=== PATIENT | female | born 1935 | race Two or more races ===

== ENCOUNTER 2016-07-08 16:30 | Emergency (ER) | payer OTHER ==
[~2016-07-08] VITALS: Ht 152.4 cm; Wt 90.7 kg
[~2016-07-08 16:30] MED LIST: ATEN50TA; ATOR20TA50; CHLO25TA22; CIPR-173; CLON0.2T; CLOP75TA41; DICY20TA66; ETOD200C27; FURO40TA; LEVO100T8; LISI40TA; METH250T21; NITR0.4S31; OMEP20TA44; OXYB10TA13; TERA5CAP42
[2016-07-08 21:11] LABS: Basophils # (auto) 0 uL; Basophils % (auto) 0.4 % (0.0-2.0); Eosinophils # (auto) 0.1 uL; Eosinophils % (auto) 1.6 % (0.0-7.0); Hematocrit 33.3 % (36.0-46.0); Hemoglobin 11.1 g/dL (12.2-16.2); Lymphocytes # (auto) 2.5 uL; Lymphocytes % (auto) 32.4 % (10.0-50.0); Mean Corpuscular Hemoglobin 30.3 pg (28.0-32.0); Mean Corpuscular Hgb Conc. 33.4 g/dL (32.0-36.0); Mean Corpuscular Volume 90.7 fL (80.0-100.0); Mean Platelet Volume 8.2 fL (7.4-10.4); Monocytes # (auto) 0.6 uL; Monocytes % (auto) 7.6 % (0.0-12.0); Neutrophils # (auto) 4.5 uL; Platelet Count (auto) 230 10^3/uL (140-450); Red Cell Distribution Width 16.7 % (11.6-16.0); White Blood Cell 7.7 10^3/uL (4.4-10.8)
[2016-07-08 21:36] LABS: Albumin 3.3 g/dL (3.4-5.0); Alkaline Phosphatase 93 U/L (45-117); Anion Gap 6 (5-15); Aspartate Aminotransferase 12 U/L (15-37); Bilirubin, Total 0.4 mg/dL (0.2-1.0); Blood Urea Nitrogen 19 mg/dL (7-18); Calcium 8.5 mg/dL (8.5-10.1); Carbon Dioxide 30 mmol/L (21-32); Chloride 103 mmol/L (98-107); GFR African American 69 mL/min; GFR Non-African American 57 mL/min; Glucose 115 mg/dL (74-106); Potassium 3.6 mmol/L (3.5-5.1); Sodium 139 mmol/L (136-145); Total Protein 7.5 g/dL (6.4-8.2)
[2016-07-08 21:39] LABS: B-Type Natriuretic Peptide 79.81 pg/mL (0-100)
[2016-07-08 21:43] LABS: Temperature: 21.8 C (20.0-25.0)
[2016-07-08 21:53] LABS: INR 1.03 (0.9-1.15); Partial Thromboplastin Time 27.1 sec (22.64-33.71); Prothrombin Time 11.2 sec (9.37-12.3)
[2016-07-08] MEDS ORDERED: IOHEXOL 350 MG/ML 100ML IJ ONE (23:58)
[2016-07-09] MEDS ORDERED: LEV100T PO (03:07)
[2016-07-09] MEDS ORDERED: CLON0.3T PO (03:07)
[2016-07-09] MEDS ORDERED: ISO60SRT PO (03:07)
[2016-07-09] MEDS ORDERED: CLOP75TA41 PO (03:07)
[2016-07-09] MEDS ORDERED: FURO40TA4 PO (03:07)
[2016-07-09] MEDS ORDERED: HYDR100T9 PO (03:07)
[2016-07-09] MEDS ORDERED: ATOR20TA PO (03:07)
[2016-07-09] MEDS ORDERED: METO-158 PO (03:07)
[2016-07-09] MEDS ORDERED: TERA5CAP42 PO (03:08)
[2016-07-09] MEDS ORDERED: cloNIDine HCL 0.1 MG TAB PO ONE (03:30)
[2016-07-09 04:58] LABS: Urine Bilirubin Negative (Negative); Urine Blood Negative /uL (Negative); Urine Color Yellow (Yellow); Urine Glucose Normal (Normal); Urine Hyaline Cast FEW /lpf (0 - 2); Urine Ketone Negative (Negative); Urine Nitrite Negative (Negative); Urine RBC <1 /hpf (0 - 4); Urine Squamous Epithelial Cell FEW /hpf (<5); Urine Urobilinogen Normal (Negative)
[2016-07-09 06:33] VITALS: BP 173/92
== END 2016-07-09 06:45 | disposition home or self-care (01) ==
LOC: EDBD 16:30 → ER 19:32
DX: R07.9 Chest pain, unspecified (principal); E03.9 Hypothyroidism, unspecified; R00.2 Palpitations; J45.909 Unspecified asthma, uncomplicated; I11.0 Hypertensive heart disease with heart failure; I50.9 Heart failure, unspecified; E11.9 Type 2 diabetes mellitus without complications; K21.9 Gastro-esophageal reflux disease without esophagitis; E78.5 Hyperlipidemia, unspecified; I25.2 Old myocardial infarction; Z88.6 Allergy status to analgesic agent; Z88.8 Allergy status to other drugs, medicaments and biological substances; Z90.49 Acquired absence of other specified parts of digestive tract; Z90.710 Acquired absence of both cervix and uterus; Z79.899 Other long term (current) drug therapy
CPT/HCPCS: 36415; 71010; 71275; 80053; 81001; 83735; 83880; 84443; 84484; 85025; 85379; 85610; 85730; 93005; 99285; Q9967

== ENCOUNTER 2016-07-29 21:10 | Emergency (ER) | payer OTHER ==
[~2016-07-29] VITALS: Ht 152.4 cm; Wt 90.7 kg
[~2016-07-29 21:10] MED LIST changes: +ATOR20TA PO; +CLON0.3T PO; +CLOP75TA41 PO; +FURO40TA4 PO; +HYDR100T9 PO; +ISO60SRT PO; +LEV100T PO; +METO-158 PO; +TERA5CAP42 PO
[2016-07-29] MEDS ORDERED: HYDROmorphone HCL 2 MG/ML VL IV ONE (22:00)
[2016-07-29] MEDS ORDERED: METOCLOPRAMIDE HCL 5MG/ml INJ 2ml VIAL IV ONE (22:00)
[2016-07-29 22:19] LABS: Basophils # (auto) 0 uL; Basophils % (auto) 0.4 % (0.0-2.0); Eosinophils # (auto) 0 uL; Eosinophils % (auto) 0.2 % (0.0-7.0); Hematocrit 42.8 % (36.0-46.0); Hemoglobin 14.5 g/dL (12.2-16.2); Lymphocytes # (auto) 1.3 uL; Lymphocytes % (auto) 15.8 % (10.0-50.0); Mean Corpuscular Hemoglobin 30.5 pg (28.0-32.0); Mean Corpuscular Hgb Conc. 33.9 g/dL (32.0-36.0); Mean Platelet Volume 8.7 fL (7.4-10.4); Monocytes # (auto) 0.4 uL; Monocytes % (auto) 4.4 % (0.0-12.0); Neutrophils # (auto) 6.6 uL; Neutrophils % (auto) 79.2 % (37.0-80.0); Platelet Count (auto) 244 10^3/uL (140-450); Red Cell Distribution Width 16.4 % (11.6-16.0); White Blood Cell 8.3 10^3/uL (4.4-10.8)
[2016-07-29 22:37] LABS: Albumin 3.8 g/dL (3.4-5.0); Calcium 8.5 mg/dL (8.5-10.1); Potassium 3.4 mmol/L (3.5-5.1)
[2016-07-29 22:38] LABS: Partial Thromboplastin Time 23.8 sec (22.64-33.71); Prothrombin Time 10.9 sec (9.37-12.3)
[2016-07-29 22:39] LABS: Bilirubin, Total 0.7 mg/dL (0.2-1.0); Total Protein 9.2 g/dL (6.4-8.2)
[2016-07-30] MEDS ORDERED: NIFEdipine 10 MG CAP PO ONE (00:30)
[2016-07-30 00:41] LABS: Urine Bilirubin Negative (Negative); Urine Blood Negative /uL (Negative); Urine Color Yellow (Yellow); Urine Glucose Normal (Normal); Urine Hyaline Cast FEW /lpf (0 - 2); Urine Mucus FEW (None Seen); Urine Nitrite Negative (Negative); Urine RBC 3 /hpf (0 - 4); Urine Squamous Epithelial Cell FEW /hpf (<5); Urine Urobilinogen Normal (Negative); Urine pH 7.5 (5.0-8.0)
[2016-07-30 00:44] LABS: Urine Ketone 1+ (Negative)
[2016-07-30 02:17] VITALS: BP 198/87
[2016-07-30] MEDS ORDERED: METOCLOPRAMIDE HCL 5MG/ml INJ 2ml VIAL IV ONE (02:30)
== END 2016-07-30 07:40 | disposition home or self-care (01) ==
LOC: EDBD 21:10 → ER 21:19
DX: K44.9 Diaphragmatic hernia without obstruction or gangrene (principal); J45.909 Unspecified asthma, uncomplicated; I25.10 Atherosclerotic heart disease of native coronary artery without angina pectoris; I50.9 Heart failure, unspecified; E11.9 Type 2 diabetes mellitus without complications; K21.9 Gastro-esophageal reflux disease without esophagitis; E78.5 Hyperlipidemia, unspecified; I11.0 Hypertensive heart disease with heart failure; I25.2 Old myocardial infarction; Z90.49 Acquired absence of other specified parts of digestive tract; Z88.6 Allergy status to analgesic agent; Z79.899 Other long term (current) drug therapy; Z90.710 Acquired absence of both cervix and uterus
CPT/HCPCS: 36415; 74176; 76705; 80053; 81001; 82150; 82962; 83690; 85025; 85610; 85730; 93005; 94761; 96374; 96375; 96376; 99285; J1170; J2765

== ENCOUNTER 2017-03-31 15:35 | Emergency (ER) | payer OTHER ==
[~2017-03-31] VITALS: Ht 152.4 cm; Wt 99.8 kg
[~2017-03-31 15:35] MED LIST changes: +HYDR-4298 PO; -HYDR100T9 PO
[2017-03-31 16:12] LABS: Basophils # (auto) 0 uL; Basophils % (auto) 0.4 % (0.0-2.0); Eosinophils # (auto) 0 uL; Eosinophils % (auto) 0.7 % (0.0-7.0); Hematocrit 36.7 % (36.0-46.0); Hemoglobin 11.9 g/dL (12.2-16.2); Lymphocytes # (auto) 1.1 uL; Lymphocytes % (auto) 16.9 % (10.0-50.0); Mean Corpuscular Hemoglobin 29.5 pg (28.0-32.0); Mean Corpuscular Hgb Conc. 32.5 g/dL (32.0-36.0); Mean Corpuscular Volume 90.8 fL (80.0-100.0); Monocytes # (auto) 0.6 uL; Monocytes % (auto) 8.2 % (0.0-12.0); Neutrophils # (auto) 4.9 uL; Neutrophils % (auto) 73.8 % (37.0-80.0); Nucleated Red Blood Cells % 0.1 %; Platelet Count (auto) 210 10^3/uL (140-450); Red Blood Cells 4.04 10^6/uL (4.0-5.20); Red Cell Distribution Width 16.5 % (11.8-14.3); White Blood Cell 6.7 10^3/uL (4.4-10.8)
[2017-03-31 16:30] LABS: Alanine Aminotransferase 18 U/L (13-56); Albumin 3.7 g/dL (3.4-5.0); Alkaline Phosphatase 89 U/L (45-117); Anion Gap 9 (5-15); Aspartate Aminotransferase 17 U/L (15-37); BUN/Creatinine Ratio 15.8; Bilirubin, Total 0.5 mg/dL (0.2-1.0); Blood Urea Nitrogen 19 mg/dL (7-18); Calcium 8.6 mg/dL (8.5-10.1); Carbon Dioxide 24 mmol/L (21-32); Chloride 107 mmol/L (98-107); GFR African American 56 mL/min; GFR Non-African American 46 mL/min; Glucose 167 mg/dL (74-106); Magnesium 2.3 mg/dL (1.6-2.6); Potassium 3.5 mmol/L (3.5-5.1); Sodium 140 mmol/L (136-145); Total Protein 7.9 g/dL (6.4-8.2)
[2017-03-31] MEDS ORDERED: ASPirin 81 mg TAB PO ONE (17:00)
[2017-03-31] MEDS ORDERED: ALUM & MAG HYDROX-SIMETH LIQ(MAALOX) 30 ML PO ONE (17:00)
[2017-03-31] MEDS ORDERED: PANTOPRAZOLE 40 MG/10 ML VIAL IV ONE (17:00)
[2017-03-31 18:48] VITALS: BP 145/81
[2017-03-31] MEDS ORDERED: HYDROmorphone HCL 2 MG/ML VL ONE (19:37)
[2017-03-31] MEDS ORDERED: HYDROmorphone HCL 2 MG/ML VL IV ONE (19:45)
== END 2017-03-31 19:43 | disposition home or self-care (01) ==
LOC: EDBD 15:35 → ER 15:35
DX: R07.89 Other chest pain (principal); K21.9 Gastro-esophageal reflux disease without esophagitis; J45.909 Unspecified asthma, uncomplicated; I25.10 Atherosclerotic heart disease of native coronary artery without angina pectoris; E78.00 Pure hypercholesterolemia, unspecified; I25.2 Old myocardial infarction; I13.0 Hypertensive heart and chronic kidney disease with heart failure and stage 1 through stage 4 chronic kidney disease, or unspecified chronic kidney disease; E11.22 Type 2 diabetes mellitus with diabetic chronic kidney disease; N18.9 Chronic kidney disease, unspecified; I50.9 Heart failure, unspecified; Z90.49 Acquired absence of other specified parts of digestive tract; Z90.710 Acquired absence of both cervix and uterus; Z88.5 Allergy status to narcotic agent; Z88.8 Allergy status to other drugs, medicaments and biological substances; Z79.01 Long term (current) use of anticoagulants; Z79.2 Long term (current) use of antibiotics; Z79.899 Other long term (current) drug therapy
CPT/HCPCS: 36415; 71046; 80053; 83735; 84484; 85025; 93005; 94761; 96374; 96375; 99285; C9113; J1170

== ENCOUNTER 2017-07-09 13:54 | Emergency (ER) | payer OTHER ==
[~2017-07-09] VITALS: Ht 167.6 cm; Wt 90.7 kg
[2017-07-09 15:25] LABS: Basophils # (auto) 0 uL; Basophils % (auto) 0.5 % (0.0-2.0); Eosinophils # (auto) 0.1 uL; Hematocrit 34.1 % (36.0-46.0); Hemoglobin 11.3 g/dL (12.2-16.2); Lymphocytes # (auto) 1.9 uL; Lymphocytes % (auto) 22.7 % (10.0-50.0); Mean Corpuscular Hemoglobin 30.3 pg (28.0-32.0); Mean Corpuscular Hgb Conc. 33.1 g/dL (32.0-36.0); Mean Corpuscular Volume 91.7 fL (80.0-100.0); Monocytes # (auto) 0.8 uL; Monocytes % (auto) 9.1 % (0.0-12.0); Neutrophils # (auto) 5.6 uL; Neutrophils % (auto) 66.7 % (37.0-80.0); Nucleated Red Blood Cells % 0.1 %; Platelet Count (auto) 190 10^3/uL (140-450); Red Blood Cells 3.72 10^6/uL (4.0-5.20); Red Cell Distribution Width 17.3 % (11.8-14.3); White Blood Cell 8.4 10^3/uL (4.4-10.8)
[2017-07-09] MEDS ORDERED: FUROSEMIDE 40 MG/4 ML VIAL IV ONE (15:30)
[2017-07-09 15:42] LABS: Alanine Aminotransferase 29 U/L (13-56); Albumin 3.2 g/dL (3.4-5.0); Anion Gap 7 (5-15); Aspartate Aminotransferase 18 U/L (15-37); BUN/Creatinine Ratio 29.9; Blood Urea Nitrogen 32 mg/dL (7-18); Calcium 8.5 mg/dL (8.5-10.1); Carbon Dioxide 28 mmol/L (21-32); Chloride 106 mmol/L (98-107); GFR African American 63 mL/min; GFR Non-African American 52 mL/min; Glucose 85 mg/dL (74-106); Potassium 3.4 mmol/L (3.5-5.1); Sodium 141 mmol/L (136-145)
[2017-07-09 15:46] LABS: Alkaline Phosphatase 93 U/L (45-117); Bilirubin, Total 0.2 mg/dL (0.2-1.0); Total Protein 7.2 g/dL (6.4-8.2)
[2017-07-09 18:31] LABS: Urine Bacteria FEW /hpf (None Seen); Urine Blood Negative /uL (Negative); Urine Specific Gravity 1.007 (1.001-1.035); Urine WBC 8 /hpf (0 - 5)
[2017-07-09] MEDS ORDERED: ASPirin 325 MG TAB PO ONE (22:45)
[2017-07-09 23:55] VITALS: BP 152/78
== END 2017-07-10 00:16 | disposition short-term general hospital (02) ==
LOC: EDBD 13:54 → ER 13:54
DX: I11.0 Hypertensive heart disease with heart failure (principal); I50.9 Heart failure, unspecified; J45.909 Unspecified asthma, uncomplicated; I25.10 Atherosclerotic heart disease of native coronary artery without angina pectoris; E11.9 Type 2 diabetes mellitus without complications; K21.9 Gastro-esophageal reflux disease without esophagitis; E78.5 Hyperlipidemia, unspecified; Z90.710 Acquired absence of both cervix and uterus; Z98.61 Coronary angioplasty status; Z90.49 Acquired absence of other specified parts of digestive tract; Z88.6 Allergy status to analgesic agent; Z88.8 Allergy status to other drugs, medicaments and biological substances
CPT/HCPCS: 36415; 71045; 80053; 81001; 83735; 83880; 84443; 84484; 85025; 93005; 96374; 99285; J1940

== ENCOUNTER 2017-10-06 15:58 | Emergency (ER) | payer OTHER ==
[~2017-10-06] VITALS: Ht 162.6 cm; Wt 136.1 kg
[2017-10-06 16:06] VITALS: BP 185/98
[2017-10-06] MEDS ORDERED: ACETAMINOPHEN 325 MG TAB PO ONE (17:30)
[2017-10-06] MEDS ORDERED: ONDANSETRON ODT 4 MG TAB PO ONE (18:15)
== END 2017-10-06 18:30 | disposition home or self-care (01) ==
LOC: EDBD 15:58 → ER 15:58
DX: S00.83XA Contusion of other part of head, initial encounter (principal); J45.909 Unspecified asthma, uncomplicated; E78.5 Hyperlipidemia, unspecified; K21.9 Gastro-esophageal reflux disease without esophagitis; E11.9 Type 2 diabetes mellitus without complications; I11.0 Hypertensive heart disease with heart failure; I50.9 Heart failure, unspecified; I25.10 Atherosclerotic heart disease of native coronary artery without angina pectoris; Z88.5 Allergy status to narcotic agent; Z88.8 Allergy status to other drugs, medicaments and biological substances; Z79.01 Long term (current) use of anticoagulants; Z79.899 Other long term (current) drug therapy; Z90.49 Acquired absence of other specified parts of digestive tract; Z90.710 Acquired absence of both cervix and uterus; Z98.61 Coronary angioplasty status; W07.XXXA Fall from chair, initial encounter; Y93.89 Activity, other specified; Y99.8 Other external cause status; Y92.512 Supermarket, store or market as the place of occurrence of the external cause
CPT/HCPCS: 70450; 72220; 99284; Q0162

== ENCOUNTER 2024-03-11 15:24 | Emergency (ER) | payer OTHER ==
[~2024-03-11] VITALS: Ht 152.4 cm; Wt 92.0 kg
[~2024-03-11 15:24] MED LIST changes: +CHLO25TA2; -CHLO25TA22; -CLOP75TA41; -CLOP75TA41 PO; +CLOP75TA70; +CLOP75TA70 PO; +DICY20TA; -DICY20TA66; +ETOD200C2; -ETOD200C27; +FURO1TAB31; -FURO40TA; -HYDR-4298 PO; +HYDR100T10 PO; -LEV100T PO; +LEVO-849 PO; -LISI40TA; +LISI40TA16; -METH250T21; +METH250T29; -OXYB10TA13; +OXYB10TA14
--- NOTE | 2024-03-11 15:50 | ECG ---
[facility] Test Date: 2024-03-11 Test Time: 15:45:29 Pat Name: CATY WILSON Department: ED Room: Gender: F Child Welfare Specialist: Pippa : 1935 Requested By: TAZ NGUYỄN Order Number: [id number] Reading MD: Wyatt Chamorro Measurements Intervals [place] Rate: 54 P: 61 RI: 199 QRS: 20 QRSD: 89 T: 83 QT: 466 QTc: 442 Interpretive Statements Sinus rhythm Low voltage, precordial leads Baseline wander in lead(s) V1 Electronically Signed On 03-13-2024 17:07:24 PST by Wyatt Chamorro Please click the below link to view image of tracing.
--- NOTE | 2024-03-11 16:13 | DVH ---
EXAM: CT Head Without Intravenous Contrast CLINICAL INDICATION: AMS TECHNIQUE: Axial computed tomography images of the head/brain without intravenous contrast. This CT exam was performed using one or more of the following dose reduction techniques: automated exposure control, adjustment of the mA and/or kV according to patient size, and/or use of iterative reconstru ction technique. RADIATION DOSE: CTDlvol= 58 mGy, DLP= 1158 mGy-cm COMPARISON: None FINDINGS: BRAIN AND EXTRA-AXIAL SPACES: Unremarkable. No significant white matter disease. No acute intracra nial hemorrhage, midline shift or mass effect. BONES/JOINTS: Unremarkable. No acute fracture. SOFT TISSUES: Unremarkable. SINUSES: Unremarkable as visualized. No acute sinusitis. MASTOID AIR CELLS: Unremarkable as visualized. No mastoid effusion. OTHER FINDINGS: . . Further MRI. IMPRESSION: No acute intracranial hemorrhage, midline shift or mass effect. HS:Y
--- NOTE | 2024-03-11 16:32 | DVH ---
EXAM: XR Chest, 1 View CLINICAL INDICATION: SOB TECHNIQUE: Frontal view of the chest. COMPARISON: None FINDINGS: LUNGS AND PLEURAL SPACES: mild chf. No consolidation. No pneumothorax. HEART: Unremarkable. No cardiomegaly. MEDIASTINUM: Unremarkable. Normal mediastinal contour. BONES/JOINTS: Unremarkable. No acute fracture. OTHER FINDINGS: . . IMPRESSION: No acute cardiopulmonary process. HS:Y
--- NOTE | 2024-03-11 16:50 | DVH ---
US BiLat Lower DVT HISTORY: SOB, history pf DVT COMPARISON: None TECHNIQUE: Duplex Doppler evaluation of the deep venous system of the lower extremity from the common femoral veins, superficial femoral vein, great saphenous vein, deep femoral vein, popliteal vein, an d calf veins, including color Doppler and spectral/pulsed waveform analysis, was performed. FINDINGS: Right: - Common femoral vein: Compressible - Deep femoral vein: Compressible - Femoral vein: Compressible - Popliteal vein: Compressible - Posterior tibial vein: Waveforms present - Other: Nothing Left: - Common femoral vein: Compressible - Deep femoral vein: Compressible - Femoral vein: Compressible - Popliteal vein: Compressible - Posterior tibial vein: Waveforms present - Other: Nothing IMPRESSION: No right or left lower extremity deep venous thrombosis.
[2024-03-11 17:20] LABS: Basophils # (auto) 0 10 ^3/uL (0-0.2); Basophils % (auto) 0.7 % (0.0-2.0); Eosinophils # (auto) 0.1 10 ^3/uL (0-0.8); Eosinophils % (auto) 1.8 % (0.0-7.0); Hematocrit 33.8 % (36.0-46.0); Hemoglobin 11.5 g/dL (12.2-16.2); Lymphocytes # (auto) 2.7 10 ^3/uL (0.4-5.4); Lymphocytes % (auto) 44.5 % (10.0-50.0); Mean Corpuscular Hemoglobin 31.2 pg (28.0-32.0); Mean Corpuscular Hgb Conc. 33.9 g/dL (32.0-36.0); Mean Corpuscular Volume 92.1 fL (80.0-100.0); Monocytes # (auto) 0.6 10 ^3/uL (0-1.3); Monocytes % (auto) 9.9 % (0.0-12.0); Neutrophils # (auto) 2.6 10 ^3/uL (1.6-8.6); Neutrophils % (auto) 43.1 % (37.0-80.0); Nucleated Red Blood Cells % 0.1 %; Platelet Count (auto) 201 10^3/uL (140-450); Red Blood Cells 3.67 10^6/uL (4.0-5.20); Red Cell Distribution Width 16.5 % (11.8-14.3); White Blood Cell 6.1 10^3/uL (4.4-10.8)
--- NOTE | 2024-03-11 17:21 | ED.PDOC ---
History of Present Illness HPI Comments Katelyn Smyth is a 88-year-old female patient who presents to the ED brought by EMS with chief complaint of intermittent dyspnea, palpitation, dizziness in functional class IV which started three days ago associated with chills and generalized weakness, slow speech and retrosternal oppressive chest pain which started yesterday and lasted less than 5 minutes. Denies syncope, nausea, vomiting, diarrhea, dysuria, bleeding, recent travel, sick contacts and motor or sensory deficits. Past medical history: Hypertension, dyslipidemia, chronic kidney disease, DVT left groin 10 years ago on clopidogrel per patient, coronary artery disease with placement of one stent five years ago, irregular heartbeat (denies atrial fibrillation), constipation, asthma, hypothyroidism. Surgical history: Cholecystectomy, tonsillectomy, stent placement four years ago, hysterectomy Family history: Sister has breast cancer Social history: Lives in [place] with daughter. Denies current tobacco, alcohol and other drug abuse. Allergies: Fentanyl, tramadol and contrast Home medication: Clonidine, hydralazine, gabapentin, clopidogrel, losartan, isosorbide mononitrate, levothyroxine, nitroglycerin p.r.n., furosemide p.r.n., atorvastatin Chief Complaint: General Weakness Time Seen by MD: 15:28 Primary Care Provider: SHAI Allergies: Coded Allergies: Ketorolac (Verified Allergy, Severe, 12/17/11) Morphine (Verified Allergy, Severe, 12/17/11) Tromethamine (Verified Allergy, Severe, 12/17/11) Home Meds Reported Medications Terazosin Hcl (Terazosin Hcl) 5 Mg Cap, 5 MG PO BID for 30 Days, MG 07/09/16 Isosorbide Mononitrate (Isosorbide Mononitrate ER) 60 Mg Tab, 60 MG PO DAILY, TAB 07/09/16 Furosemide (Furosemide) 40 Mg Tab, 1 TAB PO DAILY, #30 TAB 5 Refills 07/09/16 Clopidogrel Bisulfate (CLOPIDOGREL) 75 Mg Tab, 1 TAB PO DAILY, #90 TAB 1 Refill 07/09/16 Clonidine Hydrochloride (Clonidine Hcl) 0.3 Mg Tab, 0.3 MG PO TID, TAB 07/09/16 Levothyroxine Sodium (SYNTHROID TABLET) 100 Mcg Tb, 112 MCG PO DAILY 07/09/16 Hydralazine Hcl (Hydralazine Hcl) 100 Mg Tab, 1 TAB PO TID, #90 TAB 5 Refills 07/09/16 Atorvastatin Calcium (Lipitor) 20 Mg Tab, 1 TAB PO DAILY, #90 TAB 1 Refill 07/09/16 Metoprolol Tartrate (Metoprolol Tartrate) 50 Mg Tab, 75 MG PO BID for 30 Days, MG 07/09/16 Nitroglycerin (Nitroglycerin) 0.4 Mg Sl 12/17/11 Oxybutynin Chloride (Ditropan Xl) 10 Mg Tab 12/17/11 Dicyclomine Hcl (Dicyclomine Hcl) 20 Mg Tab, 20 MG PRN 12/17/11 Methyldopa (Methyldopa) 250 Mg Tab, 250 MG BID 12/17/11 Etodolac (Etodolac) 200 Mg Cap, 200 MG TID 12/17/11 Atorvastatin Calcium (ATORVASTATIN CALCIUM) 20 Mg Tab, 20 DAILY 12/17/11 Atenolol (Atenolol) 50 Mg Tab, 50 MG DAILY 12/17/11 Furosemide (Lasix) 40 Mg Tab, 40 MG DAILY 12/17/11 Clopidogrel Bisulfate (CLOPIDOGREL) 75 Mg Tab, 75 MG DAILY 12/17/11 Levothyroxine Sodium (Levothyroxine Sodium) 100 Mcg Tab, 100 MCG DAILY 12/17/11 Ciprofloxacin Hcl (Cipro) 500 Mg Tab, 500 MG BID 12/17/11 Chlorthalidone (Chlorthalidone) 25 Mg Tab, 25 MG DAILY 12/17/11 Terazosin Hcl (Terazosin Hcl) 5 Mg Cap, 5 MG BID 12/17/11 Clonidine Hydrochloride (Clonidine Hcl) 0.2 Mg Tab, 0.2 MG TID 12/17/11 Lisinopril (Lisinopril) 40 Mg Tab, 40 MG BID 12/17/11 Omeprazole (Cvs Omeprazole) 20 Mg Tab, 20 MG ACHS 12/17/11 Past Medical History PAST MEDICAL HISTORY: Anxiety, Asthma, CAD, CHF, DM, GERD, High Lipids, HTN Surgical History: Cholecystectomy, Hysterectomy, PTCA POLICE MATRON History: No Pertinent POLICE MATRON History Family History Family History: Unobtainable Social History Smoker: Non-Smoker Alcohol: Denies ETOH Use Drugs: Denies Drug Use Lives In: Home Physical Exam General Appearance: No Apparent Distress, Normal HEENT: Normal ENT Inspection, Pharynx Normal, TMs Normal Neck: Full Range of Motion, Non-Tender, Normal, Normal Inspection Respiratory: Chest Non-Tender, Lungs Clear, No Accessory Muscle Use, No Respiratory Distress, Normal Breath Sounds Cardiovascular: Bradycardia, No Edema, No JVD, No Murmur, No Gallop, Normal Peripheral Pulses Breast Exam: Deferred Gastrointestinal: No Organomegaly, Non Tender, No Pulsatile Mass, Normal Bowel Sounds, Soft Genitalia: Deferred Pelvic: Deferred Rectal: Deferred Extremities: No calf tenderness, Normal capillary refill, Normal inspection, Normal range of motion, Non-tender, No pedal edema Neurologic: Alert, life consultant II-XII nml as Tested, No Motor Deficits, Normal Affect, Normal Mood, No Sensory Deficits Cerebellar Function: Normal Reflexes: Normal Skin: Dry, Normal Color, Warm Lymphatic: No Adenopathy Was a procedure done? Was a procedure done?: No EKG EKG : Comments Sinus bradycardia with no ST alteration Differential Dx Considerations may include: Bradyarrhythmia, paroxysmal supraventricular tachycardia, TN, CVA, CKD, PE X-Ray, Labs, Meds, VS Vital Signs Date Time Temp Pulse Resp B/P (MAP) Pulse Ox O2 Delivery O2 Flow Rate FiO2 03/11/24 18:07 97.6 59 18 167/79 (108) 97 03/11/24 15:45 54 Lab Test 03/11/24 18:22 03/11/24 16:50 Range/Units Troponin I High Sensitivity Pending < 3 L </=34 ng/L Thyroid Stimulating Hormone (TSH) Pending White Blood Count 6.1 4.4-10.8 10^3/uL Red Blood Count 3.67 L 4.0-5.20 10^6/uL Hemoglobin 11.5 L 12.2-16.2 g/dL Hematocrit 33.8 L 36.0-46.0 % Mean Corpuscular Volume 92.1 80.0-100.0 fL Mean Corpuscular Hemoglobin 31.2 28.0-32.0 pg Mean Corpuscular Hemoglobin Concent 33.9 32.0-36.0 g/dL Red Cell Distribution Width 16.5 H 11.8-14.3 % Platelet Count 201 140-450 10^3/uL Mean Platelet Volume 8.8 6.9-10.8 fL Neutrophils (%) (Auto) 43.1 37.0-80.0 % Lymphocytes (%) (Auto) 44.5 10.0-50.0 % Monocytes (%) (Auto) 9.9 0.0-12.0 % Eosinophils (%) (Auto) 1.8 0.0-7.0 % Basophils (%) (Auto) 0.7 0.0-2.0 % Neutrophils # (Auto) 2.6 1.6-8.6 10 ^3/uL Lymphocytes # (Auto) 2.7 0.4-5.4 10 ^3/uL Monocytes # (Auto) 0.6 0-1.3 10 ^3/uL Eosinophils # (Auto) 0.1 0-0.8 10 ^3/uL Basophils # (Auto) 0 0-0.2 10 ^3/uL Nucleated Red Blood Cells 0.1 % Prothrombin Time 11.4 9.3-11.8 sec Prothrombin Time INR 1.08 0.9-1.15 Activated Partial Thromboplast Time 28.1 24.5-34.5 SEC Sodium Level 138 136-145 mmol/L Potassium Level 3.8 3.5-5.1 mmol/L Chloride Level 105 98-107 mmol/L Carbon Dioxide Level 28 20-31 mmol/L Anion Gap 5 5-15 Blood Urea Nitrogen 20 9-23 mg/dL Creatinine 1.21 H 0.550-1.02 mg/dL Glomerular Filtration Rate Calc 43 >90 mL/min BUN/Creatinine Ratio 16.5 10.0-20.0 Serum Glucose 122 H 74-106 mg/dL Lactic Acid Level 1.2 0.4-2.0 mmol/L Calcium Level 9.9 8.7-10.4 mg/dL Magnesium Level 1.9 1.6-2.6 mg/dL Total Bilirubin 0.4 0.2-1.0 mg/dL Aspartate Amino Transferase (AST) 29 13-40 U/L Alanine Aminotransferase (ALT) 30 7-40 U/L Alkaline Phosphatase 123 H 46-116 U/L B-Type Natriuretic Peptide 137.41 0-100 pg/mL Total Protein 6.1 5.7-8.2 g/dL Albumin 3.8 3.2-4.8 g/dL X-Ray, Labs, Meds, VS Comment Reviewed vital signs, EKG, laboratory workup (only positive findings was hemoglobin 11.5, hematocrit 33.8, creatinine 1.21, BNP 137), chest x-ray, head CT and lower limb ultrasound, all within normal limits except what was highligh kristofer. Time of 1ST Reevaluation: 18:33 Reevaluation 1ST: Improved Patient Education/Counseling: Diagnosis, Treatment, Prognosis, Need For Follow Up Family Education/Counseling: Diagnosis, Treatment, Prognosis, Need For Follow Up Departure 1 Departure Time of Disposition: 18:34 Impression: Primary Impression: Palpitation Disposition: HOME / SELF CARE / HOMELESS Condition: Stable Additional Instructions: Reviewed vital signs, EKG, laboratory workup, head CT, lower limb ultrasound and chest x-ray. During the time evaluation patient had parameters within normal limits except for creatinine (1.21), bradycardia (59 beats per minute), hyperten jc (167/79 mmHg). Patient currently is asymptomatic, probably could present supraventricular tachycardia during time of symptoms, when evaluated EKG was normal sinus rhythm/sinus bradycardia. Patient may benefit from event monitor as outpatient. Patient hemodynamically stable, asymptomatic, with no requirement of oxygen therapy nor IV medication, in condition to be discharged home. Was granted under optimal medical therapy, gave her advice on healthy lifestyle habits, and follow up with PCP and eventual heel sewer to complete event monitor to evaluate presence of SVT. Critical Care Note Critical Care Time?: No Stability Stability form required: No Heart Score Heart Score: Heart Score Response (Comments) Value History Slightly Suspicious 0 EKG Normal 0 Age >65 2 Risk Factors >3 or Hx ASHD 2 Troponin Normal limit 0 Total 4 TAZ NGUYỄN RESIDENT Mar 11, 2024 17:21
[2024-03-11 17:31] LABS: INR 1.08 (0.9-1.15); Partial Thromboplastin Time 28.1 SEC (24.5-34.5); Prothrombin Time 11.4 sec (9.3-11.8)
[2024-03-11 17:32] LABS: Alanine Aminotransferase 30 U/L (7-40); Albumin 3.8 g/dL (3.2-4.8); Anion Gap 5 (5-15); Aspartate Aminotransferase 29 U/L (13-40); Calcium 9.9 mg/dL (8.7-10.4); Carbon Dioxide 28 mmol/L (20-31); Chloride 105 mmol/L (98-107); Magnesium 1.9 mg/dL (1.6-2.6); Potassium 3.8 mmol/L (3.5-5.1); Sodium 138 mmol/L (136-145); Total Protein 6.1 g/dL (5.7-8.2)
[2024-03-11 17:41] LABS: Blood Urea Nitrogen 20 mg/dL (9-23)
[2024-03-11 17:43] LABS: Bilirubin, Total 0.4 mg/dL (0.2-1.0)
[2024-03-11 17:45] LABS: Alkaline Phosphatase 123 U/L (46-116); BUN/Creatinine Ratio 16.5 (10.0-20.0); Glucose 122 mg/dL (74-106)
[2024-03-11] MEDS ORDERED: LOSARTAN POTASSIUM 50 MG TAB PO ONE (18:30)
[2024-03-11 19:48] VITALS: BP 150/75; PULSE 59; RESP 17; TEMP 97.9; O2SAT 99
[2024-03-11] MEDS ORDERED: hydrALAZINE HCL 25 MG TAB PO SCH (22:00)
[2024-03-12] MEDS ORDERED: LEVOTHYROXINE SODIUM 112 MCG TAB PO SCH (06:30)
[2024-03-12] MEDS ORDERED: ISOSORBIDE MONONITRATE ER 60 MG TAB PO SCH (10:00)
[2024-03-12] MEDS ORDERED: CLOPIDOGREL BISULFATE 75 MG TAB PO SCH (10:00)
[2024-03-12] MEDS ORDERED: LOSARTAN POTASSIUM 50 MG TAB PO SCH (10:00)
[2024-03-12] MEDS ORDERED: ATORVASTATIN 20 MG TAB PO SCH (10:00)
== END 2024-03-11 20:15 | disposition home or self-care (01) ==
LOC: EDSEX 15:24 → ER 15:24 → EDBD 15:24 → ER 19:56
DX: R00.2 Palpitations (principal); I13.0 Hypertensive heart and chronic kidney disease with heart failure and stage 1 through stage 4 chronic kidney disease, or unspecified chronic kidney disease; E11.22 Type 2 diabetes mellitus with diabetic chronic kidney disease; I50.9 Heart failure, unspecified; N18.9 Chronic kidney disease, unspecified; E78.5 Hyperlipidemia, unspecified; I25.10 Atherosclerotic heart disease of native coronary artery without angina pectoris; J45.909 Unspecified asthma, uncomplicated; K21.9 Gastro-esophageal reflux disease without esophagitis; Z79.02 Long term (current) use of antithrombotics/antiplatelets; Z79.890 Hormone replacement therapy; Z79.899 Other long term (current) drug therapy; Z86.718 Personal history of other venous thrombosis and embolism; Z88.5 Allergy status to narcotic agent; Z90.49 Acquired absence of other specified parts of digestive tract; Z90.710 Acquired absence of both cervix and uterus
CPT/HCPCS: 36415; 70450; 71045; 80053; 83605; 83735; 83880; 84443; 84484; 85025; 85610; 85730; 93005; 93970

== ENCOUNTER 2024-03-22 16:51 | Emergency (ER) | payer OTHER ==
[~2024-03-22] VITALS: Ht 157.5 cm; Wt 90.9 kg
--- NOTE | 2024-03-22 18:43 | ED.PDOC ---
HPI (NEURO) HPI Comments 88 y.o female with PMHX DM, hyperlipidemia, HTN, CAD, CHF, asthma, presents to the ED via EMS for an initial evaluation for confusion. EMS, patient woke up from a nap today confused at home per family but presents to the ED complaining of generalized shooting head pain that is constant. Patient reports headache presented one week ago and is having some SOB upon assessment. Patient is tearful and is unable to answer all questions. Chief Complaint: Confusion Time Seen by MD: 18:14 Primary Care Provider: SHAI Monzon Notes: Nurses Notes, Operator Maintainer Notes, Medications, Allergies Information Source: Patient, Emergency Med Personnel Mode of Arrival: EMS Severity: Moderate Headache Severity: Moderate Timing: Hours Duration: Since onset Headache Quality: Shooting Headache Location: Generalized Onset: At rest Circumstances: Spontaneous Symptoms: None History of: DM, Hypertension Modifying factors: Nothing Associated Signs and Symptoms: Headache Past Medical History PAST MEDICAL HISTORY: Anxiety, Asthma, CAD, CHF, DM, GERD, High Lipids, HTN Surgical History: Cholecystectomy, Hysterectomy, PTCA DIRECTOR INSTITUTION History: No Pertinent DIRECTOR INSTITUTION History Family History Family History: Unobtainable Social History Smoker: Non-Smoker Alcohol: Denies ETOH Use Drugs: Denies Drug Use Lives In: Home Constitutional: denies: chills, diaphoresis, fatigue, fever, malaise, sweats, weakness, others EENTM: denies: blurred vision, double vision, ear bleeding, ear discharge, ear drainage, ear pain, ear ringing, eye pain, eye redness, hearing loss, mouth pain, mouth swelling, nasal discharge, nose bleeding, nose congestion, nose pain, photophobia, tearing, throat pain, throat swelling, voice changes, others Respiratory: denies: cough, hemoptysis, orthopnea, SOB at rest, shortness of breath, SOB with excertion, stridor, wheezing, others Cardiovascular: denies: chest pain, dizzy spells, diaphoresis, Dyspnea on exertion, edema, irregular heart beat, left arm pain, lightheadedness, palpitations, PND, syncope, others Gastrointestinal: denies: abdomen distended, abdominal pain, blood streaked bowels, constipated, diarrhea, dysphagia, difficulty swallowing, hematemesis, melena, nausea, poor appetite, poor fluid intake, rectal bleeding, rectal pain, vomiting, others Genitourinary: denies: abnormal vagina bleeding, burning, dyspareunia, dysuria, flank pain, frequency, hematuria, incontinence, pain, , vagina discharge, urgency, others Neurological: reports: headache; denies: dizziness, fainting, left sided numbn ess, left sided weakness, numbness, paresthesia, pre-existing deficit, right sided numbness, right sided weakness, seizure, speech problems, tingling, tremors, weakness, others Musculoskeletal: denies: back pain, gout, joint pain, joint swelling, muscle pain, muscle stiffness, neck pain, others Integumetry: denies: bruises, change in color, change in hair/nails, dryness, laceration, lesions, lumps, rash, wounds, others Allergic/Immunocompromised: denies: Difficulty Healing, Frequent Infections, Hives, Itching, others Hematologic/Lymphatic: denies: anemia, blood clots, easy bleeding, easy bruising, swollen glands, others Endocrine: denies: excessive hunger, excessive sweating, excessive thirst, excessive urination, flushing, intolerance to cold, intolerance to heat, unexplained weight gain, unexplained weight loss, others Psychiatric: denies: anxiety, bipolar disorder, depression, hopeless, panic disorder, schizophrenia, sleepless, suicidal, others All Other Systems: Reviewed and Negative Physical Exam General Appearance: No Apparent Distress, Normal HEENT: Normal ENT Inspection, Pharynx Normal, TMs Normal Neck: Full Range of Motion, Non-Tender, Normal, Normal Inspection Respiratory: Chest Non-Tender, Lungs Clear, No Accessory Muscle Use, No Respiratory Distress, Normal Breath Sounds Cardiovascular: No Edema, No JVD, No Murmur, No Gallop, Normal Peripheral Pulses, Regular Rate/Rhythm Breast Exam: Deferred Gastrointestinal: No Organomegaly, Non Tender, No Pulsatile Mass, Normal Bowel Sounds, Soft Genitalia: Deferred Pelvic: Deferred Rectal: Deferred Extremities: No calf tenderness, Normal capillary refill, Normal inspection, Normal range of motion, Non-tender, No pedal edema Musculoskeletal : Apperance: Normal Neurologic: Alert, tank truck loader II-XII nml as Tested, No Motor Deficits, Normal Affect, Normal Mood, No Sensory Deficits Cerebellar Function: NOT DONE Reflexes: NOT DONE Skin: Dry, Normal Color, Warm Lymphatic: No Adenopathy Was a procedure done? Was a procedure done?: No Differential Diagnosis (SZ) Seizure: Alcohol Withdrawl, Closed Head Injury, CVA/TIA, Hypoglycemia, Hyponatremia, Meningitis, Syncope, Encephalopathy CVA: DKA General Weakness: Anemia, Dehydration Headache: Cluster, Migraine, CVA, Intracerebral Hemorrhage, Sinusitis X-Ray, Labs, Meds, VS Vital Signs Date Time Temp Pulse Resp B/P (MAP) Pulse Ox O2 Delivery O2 Flow Rate FiO2 03/22/24 19:10 80 16 99 Room Air* 0 21 03/22/24 19:09 80 16 130/65 (86) 99 03/22/24 17:12 98.0 90 16 123/61 (81) 96 Lab Test 03/22/24 19:19 Range/Units White Blood Count 7.6 4.4-10.8 10^3/uL Red Blood Count 3.95 L 4.0-5.20 10^6/uL Hemoglobin 12.2 12.2-16.2 g/dL Hematocrit 36.5 36.0-46.0 % Mean Corpuscular Volume 92.5 80.0-100.0 fL Mean Corpuscular Hemoglobin 30.8 28.0-32.0 pg Mean Corpuscular Hemoglobin Concent 33.3 32.0-36.0 g/dL Red Cell Distribution Width 16.6 H 11.8-14.3 % Platelet Count 205 140-450 10^3/uL Mean Platelet Volume 8.4 6.9-10.8 fL Neutrophils (%) (Auto) 49.3 37.0-80.0 % Lymphocytes (%) (Auto) 38.8 10.0-50.0 % Monocytes (%) (Auto) 9.2 0.0-12.0 % Eosinophils (%) (Auto) 2.0 0.0-7.0 % Basophils (%) (Auto) 0.7 0.0-2.0 % Neutrophils # (Auto) 3.7 1.6-8.6 10 ^3/uL Lymphocytes # (Auto) 2.9 0.4-5.4 10 ^3/uL Monocytes # (Auto) 0.7 0-1.3 10 ^3/uL Eosinophils # (Auto) 0.1 0-0.8 10 ^3/uL Basophils # (Auto) 0 0-0.2 10 ^3/uL Nucleated Red Blood Cells 0.0 % Sodium Level 139 136-145 mmol/L Potassium Level 3.5 3.5-5.1 mmol/L Chloride Level 101 98-107 mmol/L Carbon Dioxide Level 32 H 20-31 mmol/L Anion Gap 6 5-15 Blood Urea Nitrogen 18 9-23 mg/dL Creatinine 1.39 H 0.550-1.02 mg/dL Glomerular Filtration Rate Calc 37 >90 mL/min BUN/Creatinine Ratio 12.9 10.0-20.0 Serum Glucose 152 H 74-106 mg/dL Lactic Acid Level 1.6 0.4-2.0 mmol/L Calcium Level 10.4 8.7-10.4 mg/dL Phosphorus Level 2.7 2.4-5.1 mg/dL Magnesium Level 2.3 1.6-2.6 mg/dL Troponin I High Sensitivity 4 </=34 ng/L Current Medications Medications (Trade) Dose Ordered Sig/Kandace Route Start Time Stop Time Status Last Admin Sodium Chloride 1,000 ml @ 1,000 mls/hr Q1H ONCE IV 03/22/24 19:00 03/22/24 19:59 DC 03/22/24 19:00 Acetaminophen (Tylenol Tablet) 650 mg ONCE ONCE PO 03/22/24 20:15 03/22/24 20:16 DC 03/22/24 20:31 X-Ray, Labs, Meds, VS Comment Eight 8-year-old female with extensive medical history here today initially for confusion which resolved before patient arrived to the ER and then subsequently for headache and generalized weakness. Vital signs stable, afebrile. Physical exam without any focal neurologic findings. Labs overall reassuring with evidence of possible LUCIUS versus CKD and otherwise unremarkable. CT scan of the head without evidence of acute findings. EKG without evidence of acute ischemia. Patient was given a L of fluid and Tylenol. Plan made to transfer the patient to [place] for further management given patient is stable for transfer. At 8:37 p.m. I discussed the case extensively by phone with Dr. WAGNER from [place] who accepted the patient for transfer and will organize transport, authorization [id number]. Time of 1ST Reevaluation: 18:37 Reevaluation 1ST: Unchanged Patient Education/Counseling: Other Family Education/Counseling: No Family Present Departure 1 Departure Time of Disposition: 20:39 Impression: Primary Impression: Generalized weakness Additional Impressions: Headache Confusion Disposition: 02 SHORT TERM HOSPITAL Condition: Stable Critical Care Note Critical Care Time?: No Stability Stability form required: Yes Initial call: 20:36 Stable for transfer: Intended for transfer (Health plan request transfer) Comments Discussed the case extensively by phone with from [place] who accepted the patient for transfer. I personally scribed for JOSE MORENO MD ([email or web address]) on 03/22/24 at 18:43. Electronically submitted by Guillermina Soto ([facility]). JOSE MORENO MD Mar 22, 2024 18:43
[2024-03-22] MEDS: SODIUM CHLORIDE 0.9% 1,000 ML IV ONE (19:00)
[2024-03-22 19:10] VITALS: PULSE 80; RESP 16; O2SAT 99
[2024-03-22 19:27] LABS: Basophils # (auto) 0 10 ^3/uL (0-0.2); Basophils % (auto) 0.7 % (0.0-2.0); Eosinophils # (auto) 0.1 10 ^3/uL (0-0.8); Hematocrit 36.5 % (36.0-46.0); Hemoglobin 12.2 g/dL (12.2-16.2); Lymphocytes # (auto) 2.9 10 ^3/uL (0.4-5.4); Lymphocytes % (auto) 38.8 % (10.0-50.0); Mean Corpuscular Hemoglobin 30.8 pg (28.0-32.0); Mean Corpuscular Hgb Conc. 33.3 g/dL (32.0-36.0); Mean Corpuscular Volume 92.5 fL (80.0-100.0); Monocytes # (auto) 0.7 10 ^3/uL (0-1.3); Monocytes % (auto) 9.2 % (0.0-12.0); Neutrophils # (auto) 3.7 10 ^3/uL (1.6-8.6); Neutrophils % (auto) 49.3 % (37.0-80.0); Platelet Count (auto) 205 10^3/uL (140-450); Red Blood Cells 3.95 10^6/uL (4.0-5.20); Red Cell Distribution Width 16.6 % (11.8-14.3); White Blood Cell 7.6 10^3/uL (4.4-10.8)
[2024-03-22 19:32] LABS: Chloride 101 mmol/L (98-107); Sodium 139 mmol/L (136-145)
[2024-03-22 19:33] LABS: Anion Gap 6 (5-15)
[2024-03-22 19:34] LABS: Calcium 10.4 mg/dL (8.7-10.4)
[2024-03-22 19:39] LABS: BUN/Creatinine Ratio 12.9 (10.0-20.0); Blood Urea Nitrogen 18 mg/dL (9-23)
[2024-03-22 19:41] LABS: Phosphorus 2.7 mg/dL (2.4-5.1)
[2024-03-22 19:51] LABS: Carbon Dioxide 32 mmol/L (20-31); Glucose 152 mg/dL (74-106); Potassium 3.5 mmol/L (3.5-5.1)
--- NOTE | 2024-03-22 19:51 | DVH ---
CT HEAD WITHOUT CONTRAST INDICATION: aloc COMPARISON: CT HEAD WITHOUT CONTRAST on DOS: 03/11/24 TECHNIQUE: CT of the head without intravenous contrast. RADIATION DOSE: CTDIvol: 55.49 mGy, DLP: 1000.61 mGy*cm FINDINGS: There is no evidence of acute intracranial hemorrhage, extra-axial collection, mass effect, midline s hift, herniation or hydrocephalus. The ventricles, sulci and cisterns are age appropriate. The bagley -white differentiation is intact. The visualized paranasal sinuses and mastoid air cells are clear. The surrounding soft tissues and osseous structures are unremarkable. IMPRESSION: 1. No evidence of acute intracranial hemorrhage, mass effect or hydrocephalus.
[2024-03-22] MEDS: ACETAMINOPHEN 325 MG TAB PO ONE (20:31)
[2024-03-22 21:50] VITALS: BP 168/80; PULSE 72; RESP 17; TEMP 97.9; O2SAT 97
== END 2024-03-22 22:45 | disposition short-term general hospital (02) ==
LOC: EDUNIT# 16:51 → EDBD 16:51 → ER 16:55 → EEVIPCON 16:55 → ER 22:44
DX: R53.1 Weakness (principal); R51.9 Headache, unspecified; R41.0 Disorientation, unspecified; J45.909 Unspecified asthma, uncomplicated; K21.9 Gastro-esophageal reflux disease without esophagitis; E78.5 Hyperlipidemia, unspecified; I11.0 Hypertensive heart disease with heart failure; I50.89 Other heart failure; Z90.49 Acquired absence of other specified parts of digestive tract; Z90.710 Acquired absence of both cervix and uterus; Z98.890 Other specified postprocedural states
CPT/HCPCS: 36415; 70450; 80048; 83605; 83735; 84100; 84484; 85025; 87040; 96360; 96361; 99284; J7030

== ENCOUNTER 2024-04-14 12:20 | Inpatient (IN) | payer OTHER ==
[~2024-04-14] VITALS: Ht 152.4 cm; Wt 92.5 kg
--- NOTE | 2024-04-14 13:14 | ED.PDOC ---
History of Present Illness HPI Comments 88 year old female brought in by EMS presents to the ED with a chief complaint of back pain onset 2 days. Patient states she has chronic back pain, for past few days noticed pain worsen, urinary retention with pain, abdominal pain. Patient took Percocet prior to ED arrival. PMHx HTN, DM, GERD, asthma, CHF, a nxiety, HLD, CAD. Denies chest pain, shortness of breath, headache, dizziness, nausea, vomiting, diarrhea. No other symptoms or modifying factors present at this time. Chief Complaint: Back Pain Time Seen by MD: 13:00 Primary Care Provider: UNKNOWN Reviewed Notes: Medications, Allergies Allergies: Coded Allergies: Ketorolac (Verified Allergy, Severe, 12/17/11) Morphine (Verified Allergy, Severe, 12/17/11) Tromethamine (Verified Allergy, Severe, 12/17/11) Fentanyl (Verified Allergy, Unknown, 04/14/24) Uncoded Allergies: CONTRAST (Allergy, Severe, 04/14/24) Home Meds Reported Medications Terazosin Hcl (Terazosin Hcl) 5 Mg Cap, 5 MG PO BID for 30 Days, MG 07/09/16 Isosorbide Mononitrate (Isosorbide Mononitrate ER) 60 Mg Tab, 60 MG PO DAILY, TAB 07/09/16 Furosemide (Furosemide) 40 Mg Tab, 1 TAB PO DAILY, #30 TAB 5 Refills 07/09/16 Clopidogrel Bisulfate (CLOPIDOGREL) 75 Mg Tab, 1 TAB PO DAILY, #90 TAB 1 Refill 07/09/16 Clonidine Hydrochloride (Clonidine Hcl) 0.3 Mg Tab, 0.3 MG PO TID, TAB 07/09/16 Levothyroxine Sodium (SYNTHROID TABLET) 100 Mcg Tb, 112 MCG PO DAILY 07/09/16 Hydralazine Hcl (Hydralazine Hcl) 100 Mg Tab, 1 TAB PO TID, #90 TAB 5 Refills 07/09/16 Atorvastatin Calcium (Lipitor) 20 Mg Tab, 1 TAB PO DAILY, #90 TAB 1 Refill 07/09/16 Metoprolol Tartrate (Metoprolol Tartrate) 50 Mg Tab, 75 MG PO BID for 30 Days, MG 07/09/16 Nitroglycerin (Nitroglycerin) 0.4 Mg Sl 12/17/11 Oxybutynin Chloride (Ditropan Xl) 10 Mg Tab 12/17/11 Dicyclomine Hcl (Dicyclomine Hcl) 20 Mg Tab, 20 MG PRN 12/17/11 Methyldopa (Methyldopa) 250 Mg Tab, 250 MG BID 12/17/11 Etodolac (Etodolac) 200 Mg Cap, 200 MG TID 12/17/11 Atorvastatin Calcium (ATORVASTATIN CALCIUM) 20 Mg Tab, 20 DAILY 12/17/11 Atenolol (Atenolol) 50 Mg Tab, 50 MG DAILY 12/17/11 Furosemide (Lasix) 40 Mg Tab, 40 MG DAILY 12/17/11 Clopidogrel Bisulfate (CLOPIDOGREL) 75 Mg Tab, 75 MG DAILY 12/17/11 Levothyroxine Sodium (Levothyroxine Sodium) 100 Mcg Tab, 100 MCG DAILY 12/17/11 Ciprofloxacin Hcl (Cipro) 500 Mg Tab, 500 MG BID 12/17/11 Chlorthalidone (Chlorthalidone) 25 Mg Tab, 25 MG DAILY 12/17/11 Terazosin Hcl (Terazosin Hcl) 5 Mg Cap, 5 MG BID 12/17/11 Clonidine Hydrochloride (Clonidine Hcl) 0.2 Mg Tab, 0.2 MG TID 12/17/11 Lisinopril (Lisinopril) 40 Mg Tab, 40 MG BID 12/17/11 Omeprazole ([facility] Omeprazole) 20 Mg Tab, 20 MG ACHS 12/17/11 Information Source: Patient, Relative, Emergency Med Personnel Mode of Arrival: EMS Severity: Moderate Timing: Days Past Medical History PAST MEDICAL HISTORY: Anxiety, Asthma, CAD, CHF, DM, GERD, High Lipids, HTN Surgical History: Cholecystectomy, Hysterectomy, PTCA 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 History Family History Family History: Unobtainable Social History Smoker: Non-Smoker Alcohol: Denies ETOH Use Drugs: Denies Drug Use Lives In: Home Constitutional: denies: chills, diaphoresis, fatigue, fever, malaise, sweats, weakness, others EENTM: denies: blurred vision, double vision, ear bleeding, ear discharge, ear drainage, ear pain, ear ringing, eye pain, eye redness, hearing loss, mouth pain, mouth swelling, nasal discharge, nose bleeding, nose congestion, nose pain, photophobia, tearing, throat pain, throat swelling, voice changes, others Respiratory: denies: cough, hemoptysis, orthopnea, SOB at rest, shortness of breath, SOB with excertion, stridor, wheezing, others Cardiovascular: denies: chest pain, dizzy spells, diaphoresis, Dyspnea on exertion, edema, irregular heart beat, left arm pain, lightheadedness, palpitations, PND, syncope, others Gastrointestinal: reports: abdominal pain; denies: abdomen distended, blood streaked bowels, constipated, diarrhea, dysphagia, difficulty swallowing, hematemesis, melena, nausea, poor appetite, poor fluid intake, rectal bleeding, rectal pain, vomiting, others Genitourinary: reports: pain, others (retention); denies: abnormal vagina bleeding, burning, dyspareunia, dysuria, flank pain, frequency, hematuria, incontinence, , vagina discharge, urgency Neurological: reports: numbness (bilateral legs); denies: dizziness, fainting, headache, left sided numbness, left sided weakness, paresthesia, pre-existing deficit, right sided numbness, right sided weakness, seizure, speech problems, tingling, tremors, weakness, others Musculoskeletal: reports: back pain, others (bilateral leg swelling, numbness/tingling); denies: gout, joint pain, joint swelling, muscle pain, muscle stiffness, neck pain Integumetry: denies: bruises, change in color, change in hair/nails, dryness, laceration, lesions, lumps, rash, wounds, others Allergic/Immunocompromised: denies: Difficulty Healing, Frequent Infections, Hives, Itching, others Hematologic/Lymphatic: denies: anemia, blood clots, easy bleeding, easy bruising, swollen glands, others Endocrine: denies: excessive hunger, excessive sweating, excessive thirst, excessive urination, flushing, intolerance to cold, intolerance to heat, unexplained weight gain, unexplained weight loss, others Psychiatric: denies: anxiety, bipolar disorder, depression, hopeless, panic disorder, schizophrenia, sleepless, suicidal, others All Other Systems: Reviewed and Negative Physical Exam General Appearance: No Apparent Distress, Normal HEENT: Normal ENT Inspection, Pharynx Normal, TMs Normal Neck: Full Range of Motion, Non-Tender, Normal, Normal Inspection Respiratory: Chest Non-Tender, Lungs Clear, No Accessory Muscle Use, No Respiratory Distress, Normal Breath Sounds Cardiovascular: No Edema, No JVD, No Murmur, No Gallop, Normal Peripheral Pulses, Regular Rate/Rhythm Breast Exam: Deferred Gastrointestinal: No Organomegaly, Non Tender, No Pulsatile Mass, Normal Bowel Sounds, Soft Genitalia: Deferred Pelvic: Deferred Rectal: Deferred Extremities: No calf tenderness, Normal capillary refill, Normal inspection, Normal range of motion, Non-tender, No pedal edema Musculoskeletal : Apperance: Normal Neurologic: Alert, 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 Was a procedure done?: No Differential Dx Considerations may include: Differential diagnosis includes but not limited to: cauda equina syndrome, nerve impingement, Bony fracture, dislocation, compartment syndrome, nerve injury, vascular injury and others X-Ray, Labs, Meds, VS Vital Signs Date Time Temp Pulse Resp B/P (MAP) Pulse Ox O2 Delivery O2 Flow Rate FiO2 04/14/24 19:31 220/92 04/14/24 19:27 98.4 85 21 220/92 (134) 94 98.4 04/14/24 18:55 82 20 98 Room Air* 0 21 04/14/24 18:54 82 20 254/137 (176) 97 04/14/24 12:33 87 04/14/24 12:20 100.0 89 20 202/106 (138) 98 Lab Test 04/14/24 19:59 04/14/24 18:06 04/14/24 14:51 Range/Units White Blood Count Pending Red Blood Count Pending Hemoglobin Pending Hematocrit Pending Mean Corpuscular Volume Pending Mean Corpuscular Hemoglobin Pending Mean Corpuscular Hemoglobin Concent Pending Red Cell Distribution Width Pending Platelet Count Pending Mean Platelet Volume Pending Neutrophils (%) (Auto) Pending Lymphocytes (%) (Auto) Pending Monocytes (%) (Auto) Pending Basophils (%) (Auto) Pending Neutrophils # (Auto) Pending Lymphocytes # (Auto) Pending Monocytes # (Auto) Pending Urine Color Colorless Yellow Urine Clarity Clear Clear Urine pH 8.0 5.0-9.0 Urine Specific [place] 1.007 1.001-1.035 Urine Protein 1+ H Negative Urine Ketones Negative Negative Urine Blood Negative Negative /uL Urine Nitrite Negative Negative Urine Bilirubin Negative Negative Urine Urobilinogen Normal Negative mg/dL Urine Leukocyte Esterase Negative Negative /uL Urine RBC <1 0 - 4 /hpf Urine Microscopic WBC 0-5 /HPF Urine Squamous Epithelial Cells None seen <5 /hpf Urine Bacteria None seen None Seen /hpf Urine Glucose Normal Normal mg/dL Sodium Level 138 136-145 mmol/L Potassium Level 3.3 L 3.5-5.1 mmol/L Chloride Level 101 98-107 mmol/L Carbon Dioxide Level 24 20-31 mmol/L Anion Gap 13 5-15 Blood Urea Nitrogen 10 9-23 mg/dL Creatinine 1.08 H 0.550-1.02 mg/dL Glomerular Filtration Rate Calc 50 >90 mL/min BUN/Creatinine Ratio 9.3 L 10.0-20.0 Serum Glucose 102 74-106 mg/dL Calcium Level 10.3 8.7-10.4 mg/dL Current Medications Medications (Trade) Dose Ordered Sig/Kandace Route Start Time Stop Time Status Last Admin Acetaminophen (Ofirmev) 1,000 mg DAILY STAT IV 04/14/24 13:02 04/14/24 13:03 DC 04/14/24 16:06 Hydralazine HCl (Apresoline Injection) 10 mg ONCE ONCE IV 04/14/24 19:15 04/14/24 19:16 DC 04/14/24 19:31 Ondansetron HCl (Zofran) 4 mg ONCE ONCE IV 04/14/24 19:15 04/14/24 19:16 DC 04/14/24 19:31 Acetaminophen/ Hydrocodone Bitart ([place] 10/325MG Tab) 1 tab ONCE ONCE PO 04/14/24 19:45 04/14/24 19:46 DC 04/14/24 19:58 Time of 1ST Reevaluation: 13:30 Reevaluation 1ST: Unchanged Consultation: Other (Dr Torey Coughlin auth # [id number]) Patient Education/Counseling: Diagnosis, Treatment, Prognosis Family Education/Counseling: Diagnosis, Treatment, Prognosis Additional Information The following tests were ordered, and results were reviewed by me: EKG, BMP, CBC, UA Additional Information was gathered from interviewing the following independent historians: EMS, granddaughter I discussed treatment and results with medical personnel and: patient, granddaughter Departure 1 Departure Time of Disposition: 20:17 Impression: Primary Impression: Acute on chronic low back pain Additional Impressions: Urinary retention Paresthesia of both lower extremities Disposition: 09 ADMITTED INPATIENT Condition: Guarded Comments Back Pain with Urinary Symptoms and Leg Paresthesias Chief Complaint: Difficulty urinating and leg paresthesias in the setting of chronic back pain History of Present Illness: 88-year-old female with a history of chronic back pain presents with a 3-day history of difficulty urinating and paresthesias in both legs. The symptoms represent an acute worsening of her chronic back condition. Given the combin ation of urinary symptoms and bilateral leg paresthesias, there is concern for possible cauda equina syndrome or severe nerve impingement. Review of Systems: Genitourinary: Difficulty urinating, possible urinary retention Neurological: Bilateral leg paresthesias Musculoskeletal: Chronic back pain with acute worsening All other systems reviewed and negative Imaging and Other Relevant Results: CT lumbar spine ordered, results pending MRI recommended for further evaluation Medical Decision Making: Summary Statement: 88-year-old female with chronic back pain presenting with new urinary retention and bilateral leg paresthesias, concerning for cauda equina syndrome Problem List: 1. Acute on chronic back pain, 2. Urinary retention, 3. Bilateral leg paresthesias Differential Diagnosis: 1. Cauda equina syndrome, 2. Severe nerve root impingement, 3. Spinal stenosis, 4. Disc herniation ED Course: Case discussed with [email or web address] (Dr. Segura, authorization #[id number]). Patient to be admitted to [facility] for MRI and neurological consultation Assessment and Plan: 1. Acute on chronic back pain with neurological symptoms: - High concern for cauda equina syndrome vs severe nerve impingement - Admission to [facility] arranged - Plan for urgent MRI evaluation - Neurological consultation to be obtained - Insurance authorization obtained ([employer] #[id number]) 2. Urinary retention: - To be monitored closely during admission - May require urinary catheterization if not already performed 3. Bilateral leg paresthesias: - Likely related to nerve compression - To be evaluated further with MRI and neurological consultation Billing Information: ICD-10: M54.16 - Radiculopathy, lumbar region ICD-10: R33.9 - Retention of urine, unspecified ICD-10: R20.2 - Paresthesia of skin ICD-10: G83.4 - Cauda equina syndrome Critical Care Note Critical Care Time?: Yes (35 min-critical care time only) Critical care comment: Total critical care time: Approximately 36 minutes Due to a high probability of clinically significant, life threatening deterioration, the patient required my highest level of preparedness to intervene emergently and I personally spent this critical care time directly and personally managing the patient. This critical care time included obtaining a history; examining the patient; pulse oximetry; ordering and review of studies; arranging urgent treatment with development of a management plan; evaluation of patient's response to treatment; frequent reassessment; and, discussions with other providers. This critical care time was performed to assess and manage the high probability of imminent, life-threatening deterioration that could result in multi-organ failure. It was exclusive of separately billable procedures and treating other patients. Stability Stability form required: No I personally scribed for LAURY PAGE MD ([email or web address]) on 04/14/24 at 13:14. Electronically submitted by Jessica Estrada ([email or web address]). I personally scribed for LAURY PAGE MD ([email or web address]) on 04/14/24 at 14:44. Electronically submitted by Jessica Estrada ([email or web address]). LAURY PAGE MD Apr 14, 2024 13:14 BREANA ORDOÑEZ MD Apr 14, 2024 20:20
--- NOTE | 2024-04-14 15:13 | ECG ---
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
[2024-04-14 15:20] LABS: Chloride 101 mmol/L (98-107); Sodium 138 mmol/L (136-145)
[2024-04-14 15:21] LABS: Anion Gap 13 (5-15); Calcium 10.3 mg/dL (8.7-10.4); Carbon Dioxide 24 mmol/L (20-31)
[2024-04-14 15:26] LABS: BUN/Creatinine Ratio 9.3 (10.0-20.0); Blood Urea Nitrogen 10 mg/dL (9-23); Glucose 102 mg/dL (74-106)
[2024-04-14 15:38] LABS: Potassium 3.3 mmol/L (3.5-5.1)
[2024-04-14] MEDS: ACETAMINOPHEN IV 1000 MG/100ML (10MG/ML) IV STA (16:06)
[2024-04-14 18:07] LABS: Urine Bacteria None Seen /hpf (None Seen)
--- NOTE | 2024-04-14 18:27 | DVH ---
CT LS SPINE WO CONTRAST INDICATION: LOW BACK PAIN EXAM DATE: 04/14/2024 05:43 PM COMPARISON: None RADIATION DOSE: CTDIvol: 38.94 mGy, DLP: 1398.98 mGy*cm Technique: Utilizing the CT scanner, contiguous axial scans were obtained through the lumbar spine. C oronal and sagittal reformatted images were then generated. All CT scans at this medical facility are performed using dose modulation techniques as appropriate t o a performed exam including the following: Automated exposure control was utilized; adjustment of th e MA and/or KV according to patient size; and use of iterative reconstruction technique. FINDINGS: 5 [id number] lumbar-type vertebrae. Straightening of the lumbar lordosis. Diffuse demineralizati on. Vertebral body heights are maintained. No evidence of acute traumatic fractures or spondylolisth esis. Multilevel anterior anterolateral bridging osteophytes. T12-L1: No significant spinal canal or neural foramina stenosis. L1-L2: Minimal posterior disc bulge without significant spinal canal or neural foramina stenosis. L2-L3: Posterior disc bulge with ligamentum flavum hypertrophy and facet osteoarthritis contributing to severe spinal canal stenosis with [id number] right and moderate to severe left-sided neural foramina stenosis. L3-L4: Posterior disc bulge with ligamentum flavum hypertrophy and facet osteoarthritis contributing to severe spinal canal stenosis. Severe bilateral neural foramina stenosis. L4-L5: Posterior disc bulge with ligamentum flavum hypertrophy and large posterior osteophyte causing severe spinal canal stenosis with [id number] right and severe left-sided neural foramina steno sis. L5-S1: Mild posterior disc bulge causing mild spinal canal stenosis. Mild to moderate bilateral neura l foramina stenosis. Atrophy of the paraspinal muscles. Calcified granulomas of the bilateral gluteal regions. Mild nonsp ecific right gluteal region Subcutaneous fat edema. There is nonspecific midline posterior lumbar spi ne Subcutaneous fat edema. Mild atherosclerotic calcification of the aorta and bilateral iliacs. Mild bilateral renal atrophy. 0 .8 cm fatty lesion of the lower pole of the left kidney which may represent an angiomyolipoma. 2.1 x 1.6 cm diverticulum from the proximal duodenum. Small hiatal hernia. 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 Severe spinal canal stenosis from L2-L3 through L4-L5. Moderate to severe left-sided neural foramina stenosis at L2-L3, severe bilateral neural foramina heather nosis at L3-L4, and severe left-sided neural foramina stenosis at L4-L5
[2024-04-14 18:49] LABS: Urine Blood Negative /uL (Negative); Urine Clarity Clear (Clear); Urine Color Colorless (Yellow); Urine Protein, UAD 1+ (Negative); Urine Specific Gravity 1.007 (1.001-1.035); Urine Squamous Epithelial Cell None Seen /hpf (<5); Urine Urobilinogen Normal (Negative)
[2024-04-14 18:55] VITALS: PULSE 82; RESP 20; O2SAT 98
[2024-04-14] MEDS: fentaNYL CITRATE 100 MCG/2 ML VL IV ONE (18:58)
[2024-04-14] MEDS: hydrALAZINE HCL 20 MG/ML VL IV ONE (19:31)
[2024-04-14] MEDS: ONDANSETRON HCL 4 MG/2 ML VIAL IV ONE (19:31)
[2024-04-14] MEDS: HYDROcodone-ACET 10/325MG TAB PO ONE (19:58)
[2024-04-14 20:25] LABS: Basophils # (auto) 0.1 10 ^3/uL (0-0.2); Basophils % (auto) 0.9 % (0.0-2.0); Eosinophils # (auto) 0.1 10 ^3/uL (0-0.8); Eosinophils % (auto) 0.5 % (0.0-7.0); Hematocrit 41.7 % (36.0-46.0); Lymphocytes # (auto) 3.7 10 ^3/uL (0.4-5.4); Lymphocytes % (auto) 36.6 % (10.0-50.0); Mean Corpuscular Hemoglobin 31.2 pg (28.0-32.0); Mean Corpuscular Hgb Conc. 33.4 g/dL (32.0-36.0); Mean Corpuscular Volume 93.3 fL (80.0-100.0); Neutrophils # (auto) 5.3 10 ^3/uL (1.6-8.6); Nucleated Red Blood Cells % 0.2 %; Platelet Count (auto) 274 10^3/uL (140-450); Red Blood Cells 4.47 10^6/uL (4.0-5.20); Red Cell Distribution Width 16.4 % (11.8-14.3); White Blood Cell 10.2 10^3/uL (4.4-10.8)
[2024-04-14] MEDS: MORPHINE SULFATE INJ 2 MG/ml SYRG IV ONE (22:12)
[2024-04-14] MEDS ORDERED: MORPHINE SULFATE INJ 2 MG/ml SYRG IV PRN (22:15)
[2024-04-14] MEDS: FUROSEMIDE 40 MG/4 ML VIAL IV SCH (22:15)
--- NOTE | 2024-04-14 22:51 | DVH ---
Bilateral lower extremity venous duplex Clinical History: swelling and redness Comparison: US BILAT LOWER DVT on DOS: 03/11/24 Technique: Duplex Doppler evaluation of the deep venous systems of both lower extremities from the common femora l veins to the popliteal veins including color Doppler and spectral/pulsed waveform analysis was perf ormed. Findings: RIGHT SIDE: The common femoral vein demonstrates appropriate compressibility and waveform variability. There is compressibility/patency of the great saphenous vein at the proximal thigh. The femoral vein demonstrates appropriate compressibility and waveform variability. The deep femoral vein demonstrates appropriate compressibility and waveform variability. The popliteal vein demonstrates appropriate compressibility and waveform variability. There is normal compressibility at the tibioperoneal trunk. LEFT SIDE: The common femoral vein demonstrates appropriate compressibility and waveform variability. There is compressibility/patency of the great saphenous vein at the proximal thigh. The femoral vein demonstrates appropriate compressibility and waveform variability. The deep femoral vein demonstrates appropriate compressibility and waveform variability. The popliteal vein demonstrates appropriate compressibility and waveform variability. There is normal compressibility at the tibioperoneal trunk. Impression: No evidence of right or left femoropopliteal venous thrombosis.
[2024-04-14] MEDS: cloNIDine HCL 0.1 MG TAB PO ONE (22:56)
[2024-04-14] MEDS: LOSARTAN POTASSIUM 25 MG TAB PO ONE (22:57)
[2024-04-14 23:00] VITALS: PULSE 80; RESP 20; O2SAT 96
[2024-04-15 00:04] LABS: INR 1.08 (0.9-1.15); Partial Thromboplastin Time 28.4 SEC (24.5-34.5); Prothrombin Time 11.4 sec (9.3-11.8)
[2024-04-15 00:14] LABS: Bilirubin, Total 0.8 mg/dL (0.2-1.0)
[2024-04-15 00:16] LABS: Alanine Aminotransferase 48 U/L (7-40); Albumin 4.9 g/dL (3.2-4.8); Alkaline Phosphatase 120 U/L (46-116); Aspartate Aminotransferase 49 U/L (13-40); Bilirubin, Direct 0.3 mg/dL (<0.3); Blood Alcohol < 3.0 mg/dL (<10); Total Protein 8.4 g/dL (5.7-8.2)
[2024-04-15 00:16] LABS: Amphetamine Screen, Urine Neg (NEGATIVE); Barbiturate Scree,Urine Neg (NEGATIVE); Benzodiazephine Screen, Urine Neg (NEGATIVE); Cannabinoid Screen, Urine Neg (NEGATIVE); Cocaine Screen, Urine Neg (NEGATIVE); Opiate Scree,Urine Neg (NEGATIVE); Phencyclidine Screen, Urine Neg (NEGATIVE)
[2024-04-15 00:30] VITALS: PULSE 88; RESP 27; O2SAT 98
[2024-04-15] MEDS: POTASSIUM EFFERVESENT TAB 25 MEQ PO ONE ×2 (00:36→08:50)
[2024-04-15] MEDS ORDERED: DEXTROSE (50%) 50ML SYRG IV PRN (00:45)
--- NOTE | 2024-04-15 00:48 | DVHHPRES ---
History of Present Illness Resident Creating Document: BONIFACIO ANTONIO RESIDENT History of Present Illness CATY WILSON is a 88-year-old female with a PMH of anxiety, asthma, CAD, CHF, type 2 DM, GERD, HLD, HTN, unspecified abdominal mass presented to the ED with the chief complaints of worsening bilateral lower extremity pain along with lower back pain. Patient reported she has been having chronic back pain, neuropathy in both legs which gives occasional paresthesias sensations but since today moaning patient lower back pain getting worsening and both extremities feels squeezing sensation like tourniquet more in the right and groin also having pain which brought her to visit ED. patient reported 1 year ago she diagnosed with unspecified abdominal tumor but did not underwent any treatment, recently patient has been having bloating sensation, tenderness in upper abdomen with no aggravating or relieving factors, no radiation. Patient reported she has been having headaches since this morning. On arrival patient is moaning in pain, given pain management and her blood pressure is so high likely due to pain and we are controlling both pain and blood pressure and patient has urinary retention, place Calderon. On my assessment patient denies fever, nausea, vomiting, diarrhea, constipation, chest pain, shortness of breath, and other acute associated symptoms. Patient uses walker to walk but recently has been having difficulty with walking. PMH: anxiety, asthma, CAD, CHF, type 2 DM, GERD, HLD, HTN, unspecified abdominal mass PSH: Cholecystectomy, Hysterectomy, PTCA Family history: Noncontributory Social history: Lives with the family. Denies smoking, alcohol and other drug abuse Allergies: Contrast, fentanyl, ketorolac, tromethamine Home medications: Please see reconciled meds tab Review of Systems Constitutional: No: Fever, Chills, Sweats, Weakness, Malaise, Other Eyes: No: Pain, Vision change, Conjunctivae inflammation, Eyelid inflammation, Other, Redness ENT: No: Ear pain, Ear discharge, Nose pain, Nose discharge, Nose congestion, Mouth pain, Mouth swelling, Throat pain, Throat swelling, Other Respiratory: No: Cough, Dry, Shortness of breath, SOB with excertion, Wheezing, Hemoptysis, Pleuritic Pain, Sputum, Wheezing, Other Cardiovascular: Edema Gastrointestinal: Abdominal Pain (Bloating) Genitourinary: Retention Musculoskeletal: back pain, leg pain Skin: No: Rash, Lesions, Jaundice, Bruising, Other Neurological: No: Weakness, Numbness, Incoordination, Change in speech, Confusion, Seizures, Other Allergies: Coded Allergies: Ketorolac (Verified Allergy, Severe, 12/17/11) Tromethamine (Verified Allergy, Severe, 12/17/11) Fentanyl (Verified Allergy, Unknown, 04/14/24) Uncoded Allergies: CONTRAST (Allergy, Severe, 04/14/24) Medications Current Medications Medications Dose Ordered Sig/Kandace Route Start Time Stop Time Status Last Admin Dose Admin Sodium Chloride 10 ml Q8HR IV 04/15/24 06:00 Enoxaparin Sodium 40 mg DAILY SC 04/15/24 10:00 Acetaminophen 650 mg Q6HP PRN PO 04/14/24 22:15 Morphine Sulfate 2 mg Q4HPRN PRN IV 04/14/24 22:15 Nitroglycerin 0.4 mg Q5MINP PRN SL 04/14/24 22:15 Morphine Sulfate 2 mg Q30M PRN IV 04/14/24 22:15 Furosemide 40 mg DAILY IV 04/14/24 22:15 04/14/24 22:15 40 MG Atorvastatin Calcium 20 mg DAILY PO 04/15/24 10:00 Chlorthalidone 25 mg DAILY PO 04/15/24 10:00 Clopidogrel Bisulfate 75 mg DAILY PO 04/15/24 10:00 Levothyroxine Sodium 100 mcg DAILY PO 04/15/24 10:00 Clonidine HCl 0.2 mg TID PO 04/15/24 06:00 Hydralazine HCl 100 mg TID PO 04/15/24 06:00 Pantoprazole Sodium 40 mg DAILY IV 04/15/24 10:00 Nicardipine HCl 250 ml @ 50 mls/hr Q5H IV 04/15/24 00:00 04/15/24 00:15 50 MLS/HR Exam Vital Signs Vital Signs Date Time Temp Pulse Resp B/P (MAP) Pulse Ox O2 Delivery O2 Flow Rate FiO2 04/15/24 00:15 87 218/95 04/14/24 23:00 20 96 Room Air* 0 21 04/14/24 19:27 98.4 98.4 Exam General Appearance: Alert, Oriented X3, Cooperative, severe distress due to pain HEENT: Atraumatic, Mucous membranes moist/pink Respiratory: Clear to auscultation, Normal air movement, No added sounds Cardiovascular: Regular rate, Normal S1, Normal S2 Abdominal: Epigastric tenderness, bloating, firm to touch Extremities: 2+ BLE edema, redness, Normal pulses, SLR weakly positive in RLE Skin: No Significant rash, except past surgical scars Neuro: Normal speech, sensorimotor deficits none Psych/Mental Status: Mental status NL, Mood NL Nurse was there as sharperone during examination Labs/Xrays Labs Test 04/14/24 23:20 04/14/24 19:59 04/14/24 18:06 04/14/24 14:51 Range/Units Prothrombin Time 11.4 9.3-11.8 sec Prothrombin Time INR 1.08 0.9-1.15 Activated Partial Thromboplast Time 28.4 24.5-34.5 SEC Lactic Acid Level 1.4 0.4-2.0 mmol/L Total Bilirubin 0.8 0.2-1.0 mg/dL Direct Bilirubin 0.3 <0.3 mg/dL Aspartate Amino Transferase (AST) 49 H 13-40 U/L Alanine Aminotransferase (ALT) 48 H 7-40 U/L Alkaline Phosphatase 120 H 46-116 U/L Ammonia < 10 L 11-32 umol/L B-Type Natriuretic Peptide 197.42 0-100 pg/mL Total Protein 8.4 H 5.7-8.2 g/dL Albumin 4.9 H 3.2-4.8 g/dL Plasma/Serum Blood Alcohol < 3.0 <10 mg/dL White Blood Count 10.2 4.4-10.8 10^3/uL Red Blood Count 4.47 4.0-5.20 10^6/uL Hemoglobin 14.0 12.2-16.2 g/dL Hematocrit 41.7 36.0-46.0 % Mean Corpuscular Volume 93.3 80.0-100.0 fL Mean Corpuscular Hemoglobin 31.2 28.0-32.0 pg Mean Corpuscular Hemoglobin Concent 33.4 32.0-36.0 g/dL Red Cell Distribution Width 16.4 H 11.8-14.3 % Platelet Count 274 140-450 10^3/uL Mean Platelet Volume 8.2 6.9-10.8 fL Neutrophils (%) (Auto) 52.0 37.0-80.0 % Lymphocytes (%) (Auto) 36.6 10.0-50.0 % Monocytes (%) (Auto) 10.0 0.0-12.0 % Eosinophils (%) (Auto) 0.5 0.0-7.0 % Basophils (%) (Auto) 0.9 0.0-2.0 % Neutrophils # (Auto) 5.3 1.6-8.6 10 ^3/uL Lymphocytes # (Auto) 3.7 0.4-5.4 10 ^3/uL Monocytes # (Auto) 1.0 0-1.3 10 ^3/uL Eosinophils # (Auto) 0.1 0-0.8 10 ^3/uL Basophils # (Auto) 0.1 0-0.2 10 ^3/uL Nucleated Red Blood Cells 0.2 % Hemoglobin A1c 6.1 H <5.7 % A1C Urine Color Colorless Yellow Urine Clarity Clear Clear Urine pH 8.0 5.0-9.0 Urine Specific [place] 1.007 1.001-1.035 Urine Protein 1+ H Negative Urine Ketones Negative Negative Urine Blood Negative Negative /uL Urine Nitrite Negative Negative Urine Bilirubin Negative Negative Urine Urobilinogen Normal Negative mg/dL Urine Leukocyte Esterase Negative Negative /uL Urine RBC <1 0 - 4 /hpf Urine Microscopic WBC 0-5 /HPF Urine Squamous Epithelial Cells None seen <5 /hpf Urine Bacteria None seen None Seen /hpf Urine Glucose Normal Normal mg/dL Urine Opiates Screen Neg NEGATIVE Urine Fentanyl Screen Neg NEGATIVE Urine Barbiturates Screen Neg NEGATIVE Urine Phencyclidine Screen Neg NEGATIVE Urine Amphetamines Screen Neg NEGATIVE Urine Benzodiazepines Screen Neg NEGATIVE Urine Cocaine Screen Neg NEGATIVE Urine Cannabinoids Screen Neg NEGATIVE Sodium Level 138 136-145 mmol/L Potassium Level 3.3 L 3.5-5.1 mmol/L Chloride Level 101 98-107 mmol/L Carbon Dioxide Level 24 20-31 mmol/L Anion Gap 13 5-15 Blood Urea Nitrogen 10 9-23 mg/dL Creatinine 1.08 H 0.550-1.02 mg/dL Glomerular Filtration Rate Calc 50 >90 mL/min BUN/Creatinine Ratio 9.3 L 10.0-20.0 Serum Glucose 102 74-106 mg/dL Calcium Level 10.3 8.7-10.4 mg/dL Magnesium Level 2.1 1.6-2.6 mg/dL Thyroid Stimulating Hormone (TSH) 4.49 0.55-4.78 uIU/mL Assessment/Plan Assessment/Plan # possible hypertensive emergency # Uncontrolled hypertension -currently on nicardipine drip -resumed home meds -closely monitor blood pressure -Chad status for now # Severe spinal canal stenosis from L2-L3 through L4-L5 # severe neural foramina stenosis L2-L5 # possible sciatica -evident on CT -pain management for now -physical therapy - consulted Dr Whittington # possible lower extremity cellulitis -currently on clindamycin # type 2 DM with HbA1c 6.1 -mild scale # chronic systolic versus diastolic CHF not in exacerbation -resume home meds -consider echo if needed # GERD -Protonix # ruled out DVT -venous Scan negative Protonix Lovenox Cardiac diet Goals of care discussed with the patient for more than 29 minutes: Full code status Case discussed with Dr. Anand, patient and nurse Plan discussed with: Patient My Orders Orders - BONIFACIO ANTONIO RESIDENT Procedure Category Date Status Time Admit ADMIT 04/14/24 Transmitted 22:05 Allergies MARINA 04/14/24 In Process 22:05 Code Status CODE 04/14/24 Transmitted 22:05 2 Gm Sodium Diet DIET 04/15/24 Transmitted Breakfast Sodium Chloride Lock PHA 04/15/24 In Process (Saline Lock Ns) 06:00 Enoxaparin Sodium PHA 04/15/24 In Process (Lovenox) 10:00 Complete Blood Count LAB 04/15/24 Logged 04:00 Comprehensive LAB 04/15/24 Logged Metabolic Panel 04:00 Cardiac DIET 04/15/24 Transmitted Diet-2gna,Lofat,Lochol Breakfast Condition: Fair MARINA 04/14/24 In Process 22:05 Acetaminophen Tablet PHA 04/14/24 In Process (Tylenol Tablet) 22:15 Morphine Sulfate PHA 04/14/24 In Process Injection 22:15 Nitroglycerin PHA 04/14/24 In Process Sublingual (Ntrostat 22:15 Morphine Sulfate PHA 04/14/24 In Process Injection 22:15 Oxygen By Nasal RT 04/14/24 Transmitted Cannula 22:05 Stat Ekg For Chest MARINA 04/14/24 In Process Pain 22:05 Notify Of Changes MARINA 04/14/24 In Process From Base 22:05 Presser Cotton Ginning For MARINA 04/14/24 In Process 24 Hours 22:05 Emergency Dysrhythmia MARINA 04/14/24 In Process Protocol 22:05 Rhythm Strips Once MARINA 04/14/24 In Process Every Shift 22:05 Furosemide Injection PHA 04/14/24 In Process (Lasix Injection) 22:15 Bilat Lower Dvt US 04/14/24 Resulted 22:05 Chest Xray 1 View XY 04/14/24 Taken 22:47 Covid19 Antigen [facility] LAB 04/14/24 Logged 22:47 Rapid Influenza A&B LAB 04/14/24 Logged 22:47 Atorvastatin (Lipitor) PHA 04/15/24 In Process 10:00 Chlorthalidone PHA 04/15/24 In Process (Chlorthalidone) 10:00 Clopidogrel Bisulfate PHA 04/15/24 In Process (Plavix) 10:00 Levothyroxine Tablet PHA 04/15/24 In Process (Synthroid Tablet) 10:00 Clonidine Hcl Tablet PHA 04/15/24 In Process (Catapres Tablet) 06:00 Hydralazine Hcl PHA 04/15/24 In Process Tablet (Apresoline 06:00 Pantoprazole PHA 04/15/24 In Process (Protonix) 10:[address] 04/14/24 Logged 22:53 Ct Ab Pel Wo Con-No CT 04/14/24 Logged Oral Or Iv 22:58 Nicardipine PHA 04/15/24 In Process 25mg/250ml Bag Kit 00:00 Transfer Orders XFER 04/14/24 Transmitted 23:56 Glucose Blood PHA 04/15/24 Transmitted (Accu-Chek Comfort 07:00 Mild Sliding Scale PHA 04/15/24 Transmitted 07:00 Dextrose 50% Syringe PHA 04/15/24 Transmitted 00:45 Date of Service: Apr 14, 2024 Billing Provider: ELIZA ANAND MD Common Visit Codes: [id number] INP/OBS CARE (HIGH) BONIFACIO ANTONIO RESIDENT Apr 15, 2024 00:48 ELIZA ANAND MD Apr 15, 2024 14:45
[2024-04-15] MEDS: NITROGLYCERIN 0.4 MG SL TAB SL PRN (01:00)
[2024-04-15] MEDS: MORPHINE SULFATE INJ 2 MG/ml SYRG IV PRN (01:01)
--- NOTE | 2024-04-15 01:01 | DVH ---
CHEST RADIOGRAPH Indication: sob Technique: Single frontal view of the chest was obtained COMPARISON: XY CHEST PORTABLE on DOS: 03/11/24 FINDINGS: Lines and Tubes: None Lungs: Clear Pleura: No effusion. No pneumothorax. Cardiomediastinal contours: Unremarkable Bones: Unremarkable IMPRESSION: 1. No acute disease.
[2024-04-15] MEDS: TEMAZEPAM 15 MG CAP PO ONE (03:21)
[2024-04-15 04:12] LABS: COVID19 ANTIGEN SOFIA FIA NEGATIVE (NEGATIVE); Rapid Influenza A Negative (Negative); Rapid Influenza B Negative (Negative)
[2024-04-15] MEDS: diphenhdrAMINE HCL 25 MG CAP PO ONE (04:20)
[2024-04-15] MEDS: CLINDAMYCIN 600MG IV 50 ML IV ONE (04:20)
[2024-04-15 05:28] LABS: Basophils # (auto) 0.1 10 ^3/uL (0-0.2); Basophils % (auto) 0.8 % (0.0-2.0); Eosinophils # (auto) 0 10 ^3/uL (0-0.8); Eosinophils % (auto) 0.2 % (0.0-7.0); Hematocrit 38.1 % (36.0-46.0); Hemoglobin 12.4 g/dL (12.2-16.2); Lymphocytes # (auto) 2.2 10 ^3/uL (0.4-5.4); Lymphocytes % (auto) 19.3 % (10.0-50.0); Mean Corpuscular Hemoglobin 30.1 pg (28.0-32.0); Mean Corpuscular Hgb Conc. 32.6 g/dL (32.0-36.0); Mean Corpuscular Volume 92.6 fL (80.0-100.0); Monocytes # (auto) 1.1 10 ^3/uL (0-1.3); Monocytes % (auto) 9.4 % (0.0-12.0); Neutrophils # (auto) 7.9 10 ^3/uL (1.6-8.6); Neutrophils % (auto) 70.3 % (37.0-80.0); Nucleated Red Blood Cells % 0.1 %; Platelet Count (auto) 258 10^3/uL (140-450); Red Blood Cells 4.12 10^6/uL (4.0-5.20); Red Cell Distribution Width 16.7 % (11.8-14.3); White Blood Cell 11.2 10^3/uL (4.4-10.8)
[2024-04-15 05:59] LABS: Alanine Aminotransferase 37 U/L (7-40); Albumin 4.3 g/dL (3.2-4.8); Alkaline Phosphatase 108 U/L (46-116); Anion Gap 11 (5-15); BUN/Creatinine Ratio 8.7 (10.0-20.0); Blood Urea Nitrogen 11 mg/dL (9-23); Calcium 9.7 mg/dL (8.7-10.4); Carbon Dioxide 26 mmol/L (20-31); Chloride 98 mmol/L (98-107)
[2024-04-15 06:00] LABS: Bilirubin, Total 0.6 mg/dL (0.2-1.0); Total Protein 7.5 g/dL (5.7-8.2)
[2024-04-15] MEDS ORDERED: cloNIDine HCL 0.1 MG TAB PO SCH (06:00)
[2024-04-15] MEDS ORDERED: hydrALAZINE HCL 25 MG TAB PO SCH (06:00)
[2024-04-15] MEDS: SODIUM CHLOR 0.9% PF (SALINE LOCK) 10ML VIAL/SYR IV SCH (06:09)
[2024-04-15 06:25] LABS: Aspartate Aminotransferase 42 U/L (13-40); Glucose 167 mg/dL (74-106); Potassium 3.2 mmol/L (3.5-5.1); Sodium 135 mmol/L (136-145)
[2024-04-15] MEDS: InsuLIN REG 1unit/0.01ml Soln (100units/ml) SC SCH (06:37)
[2024-04-15] MEDS: ACCU-CHEK COMFORT CURVE STRIP VI SCH (07:27)
[2024-04-15 07:30] VITALS: PULSE 89; RESP 12; O2SAT 96
--- NOTE | 2024-04-15 07:41 | DVH ---
EXAM: CT Abdomen and Pelvis Without Intravenous Contrast CLINICAL INDICATION: Severe abdominal pain TECHNIQUE: Axial computed tomography images of the abdomen and pelvis without intravenous contrast. This CT exam was performed using one or more of the following dose reduction techniques: automated exposure control, adjustment of the mA and/or kV according to patient size, and/or use of iterative r econstruction technique. CONTRAST: RADIATION DOSE: CTDIvol = 23.56 mGy, DLP = 1272.07 mGy-cm COMPARISON: None FINDINGS: ARTIFACTS: Beam hardening artifacts. LUNG BASES: Partially visualized lung emphysema. No consolidation. ABDOMEN: LIVER: Fatty infiltration of the liver. GALLBLADDER AND BILE DUCTS: Gallbladder is surgically absent. No ductal dilation. PANCREAS: Unremarkable. No ductal dilation. SPLEEN: Unremarkable. No splenomegaly. ADRENALS: Unremarkable. No mass. KIDNEYS AND URETERS: Unremarkable. No obstructing stones. No hydronephrosis. STOMACH AND BOWEL: Colonic diverticulosis without acute diverticulitis. No obstruction. PELVIS: APPENDIX: No findings to suggest acute appendicitis. BLADDER: Unremarkable. No stones. REPRODUCTIVE: Unremarkable as visualized. ABDOMEN and PELVIS: INTRAPERITONEAL SPACE: Unremarkable. No free air. No significant fluid collection. BONES/JOINTS: No acute fracture. No dislocation. SOFT TISSUES: Unremarkable. VASCULATURE: Scattered calcified atherosclerotic disease of aorta. No abdominal aortic aneurysm. LYMPH NODES: Unremarkable. No enlarged lymph nodes. OTHER FINDINGS: . . IMPRESSION: Colonic diverticulosis without acute diverticulitis.
[2024-04-15] MEDS: cloNIDine HCL 0.1 MG TAB PO SCH (08:51)
[2024-04-15] MEDS: CHLORTHALIDONE 25 MG TAB PO SCH (10:00)
--- NOTE | 2024-04-15 10:26 | DVHINCON2 ---
Consultation - Spinal Surgery Date Seen: Apr 15, 2024 Referring Physician Referring Physician Attending Doctor: Bonifacio Ferguson Resident Resident Creating Document: BONIFACIO FERGUSON RESIDENT Reason for Consultation lumbar stenosis History of Present Illness History of Present Illness History of Present Illness CATY WILSON is a 88-year-old female with a PMH of anxiety, asthma, CAD, CHF, type 2 DM, GERD, HLD, HTN, unspecified abdominal mass presented to the ED with the chief complaints of worsening bilateral lower extremity pain along with lower back pain. Patient reported she has been having chronic back pain, neuropathy in both legs which gives occasional paresthesias sensations but since today moaning patient lower back pain getting worsening and both extremities feels squeezing sensation like tourniquet more in the right and groin also having pain which brought her to visit ED. patient reported 1 year ago she diagnosed with unspecified abdominal tumor but did not underwent any treatment, recently patient has been having bloating sensation, tenderness in upper abdomen with no aggravating or relieving factors, no radiation. Patient reported she has been having headaches since this morning. On arrival patient is moaning in pain, given pain management and her blood pressure is so high likely due to pain and we are controlling both pain and blood pressure and patient has urinary retention, place Calderon. On my assessment patient denies fever, nausea, vomiting, diarrhea, constipation, chest pain, shortness of breath, and other acute associated symptoms. Patient uses walker to walk but recently has been having difficulty with walking. Past Medical/Surgical History Past Medical/Surgical History PMH: anxiety, asthma, CAD, CHF, type 2 DM, GERD, HLD, HTN, unspecified abdominal mass PSH: Cholecystectomy, Hysterectomy, PTCA Family and Social History Family and Social History Family history: Noncontributory Social history: Lives with the family. Denies smoking, alcohol and other drug abuse Allergies and medications Allergies: Coded Allergies: Ketorolac (Verified Allergy, Severe, 12/17/11) Tromethamine (Verified Allergy, Severe, 12/17/11) Fentanyl (Verified Allergy, Unknown, 04/14/24) Uncoded Allergies: CONTRAST (Allergy, Severe, 04/14/24) Home Meds Reported Medications Terazosin Hcl (Terazosin Hcl) 5 Mg Cap, 5 MG PO BID for 30 Days, MG 07/09/16 Isosorbide Mononitrate (Isosorbide Mononitrate ER) 60 Mg Tab, 60 MG PO DAILY, TAB 07/09/16 Furosemide (Furosemide) 40 Mg Tab, 1 TAB PO DAILY, #30 TAB 5 Refills 07/09/16 Clopidogrel Bisulfate (CLOPIDOGREL) 75 Mg Tab, 1 TAB PO DAILY, #90 TAB 1 Refill 07/09/16 Clonidine Hydrochloride (Clonidine Hcl) 0.3 Mg Tab, 0.3 MG PO TID, TAB 07/09/16 Levothyroxine Sodium (SYNTHROID TABLET) 100 Mcg Tb, 112 MCG PO DAILY 07/09/16 Hydralazine Hcl (Hydralazine Hcl) 100 Mg Tab, 1 TAB PO TID, #90 TAB 5 Refills 07/09/16 Atorvastatin Calcium (Lipitor) 20 Mg Tab, 1 TAB PO DAILY, #90 TAB 1 Refill 07/09/16 Metoprolol Tartrate (Metoprolol Tartrate) 50 Mg Tab, 75 MG PO BID for 30 Days, MG 07/09/16 Nitroglycerin (Nitroglycerin) 0.4 Mg Sl 12/17/11 Oxybutynin Chloride (Ditropan Xl) 10 Mg Tab 12/17/11 Dicyclomine Hcl (Dicyclomine Hcl) 20 Mg Tab, 20 MG PRN 12/17/11 Methyldopa (Methyldopa) 250 Mg Tab, 250 MG BID 12/17/11 Etodolac (Etodolac) 200 Mg Cap, 200 MG TID 12/17/11 Atorvastatin Calcium (ATORVASTATIN CALCIUM) 20 Mg Tab, 20 DAILY 12/17/11 Atenolol (Atenolol) 50 Mg Tab, 50 MG DAILY 12/17/11 Furosemide (Lasix) 40 Mg Tab, 40 MG DAILY 12/17/11 Clopidogrel Bisulfate (CLOPIDOGREL) 75 Mg Tab, 75 MG DAILY 12/17/11 Levothyroxine Sodium (Levothyroxine Sodium) 100 Mcg Tab, 100 MCG DAILY 12/17/11 Ciprofloxacin Hcl (Cipro) 500 Mg Tab, 500 MG BID 12/17/11 Chlorthalidone (Chlorthalidone) 25 Mg Tab, 25 MG DAILY 12/17/11 Terazosin Hcl (Terazosin Hcl) 5 Mg Cap, 5 MG BID 12/17/11 Clonidine Hydrochloride (Clonidine Hcl) 0.2 Mg Tab, 0.2 MG TID 12/17/11 Lisinopril (Lisinopril) 40 Mg Tab, 40 MG BID 12/17/11 Omeprazole ([facility]vs Omeprazole) 20 Mg Tab, 20 MG ACHS 12/17/11 Review of systems Review of Systems: HEENT:Normal Examination Vital signs Imaging CT LS SPINE WO CONTRAST INDICATION: LOW BACK PAIN EXAM DATE: 04/14/2024 05:43 PM COMPARISON: None RADIATION DOSE: CTDIvol: 38.94 mGy, DLP: 1398.98 mGy*cm Technique: Utilizing the CT scanner, contiguous axial scans were obtained through the lumbar spine. Coronal and sagittal reformatted images were then generated. All CT scans at this medical facility are performed using dose modulation techniques as appropriate to a performed exam including the following: Automated exposure control was utilized; adjustment of the MA and/or KV according to patient size; and use of iterative reconstruction technique. FINDINGS: 5 [id number] lumbar-type vertebrae. Straightening of the lumbar lordosis. Diffuse demineralization. Vertebral body heights are maintained. No evidence of acute traumatic fractures or spondylolisthesis. Multilevel anterior anterolateral bridging osteophytes. T12-L1: No significant spinal canal or neural foramina stenosis. L1-L2: Minimal posterior disc bulge without significant spinal canal or neural foramina stenosis. L2-L3: Posterior disc bulge with ligamentum flavum hypertrophy and facet osteoarthritis contributing to severe spinal canal stenosis with [id number] right and moderate to severe left-sided neural foramina stenosis. L3-L4: Posterior disc bulge with ligamentum flavum hypertrophy and facet osteoarthritis contributing to severe spinal canal stenosis. Severe bilateral neural foramina stenosis. L4-L5: Posterior disc bulge with ligamentum flavum hypertrophy and large posterior osteophyte causing severe spinal canal stenosis with [id number] right and severe left-sided neural foramina stenosis. L5-S1: Mild posterior disc bulge causing mild spinal canal stenosis. Mild to moderate bilateral neural foramina stenosis. Atrophy of the paraspinal muscles. Calcified granulomas of the bilateral gluteal regions. Mild nonspecific right gluteal region Subcutaneous fat edema. There is nonspecific midline posterior lumbar spine Subcutaneous fat edema. Mild atherosclerotic calcification of the aorta and bilateral iliacs. Mild bilateral renal atrophy. 0.8 cm fatty lesion of the lower pole of the left kidney which may represent an angiomyolipoma. 2.1 x 1.6 cm diverticulum from the proximal duodenum. Small hiatal hernia. 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 Severe spinal canal stenosis from L2-L3 through L4-L5. Moderate to severe left-sided neural foramina stenosis at L2-L3, severe bilateral neural foramina stenosis at L3-L4, and severe left-sided neural foramina stenosis at L4-L5 Vital Signs Date Time Temp Pulse Resp B/P (MAP) Pulse Ox O2 Delivery O2 Flow Rate FiO2 04/15/24 08:51 142/68 04/15/24 08:00 78 11 96 04/15/24 00:30 Nasal Cannula* 2 04/15/24 00:30 98.2 98.2 Medications Current Medications Medications (Trade) Dose Ordered Sig/Kandace Route PRN Reason Start Time Stop Time Status Last Admin Acetaminophen (Ofirmev) 1,000 mg DAILY STAT IV 04/14/24 13:02 04/14/24 13:03 DC 04/14/24 16:06 Sodium Chloride (Saline Lock Ns) 10 ml Q8HR IV 04/15/24 06:00 04/15/24 06:09 Enoxaparin Sodium (Lovenox) 40 mg DAILY SC 04/15/24 10:00 Acetaminophen (Tylenol Tablet) 650 mg Q6HP PRN PO PAIN SCALE 1-3 OR TEMP>100.4 04/14/24 22:15 Morphine Sulfate 2 mg Q4HPRN PRN IV SEVERE PAIN (7-10 PAIN SCALE) 04/14/24 22:15 Nitroglycerin (Ntrostat Sublingual) 0.4 mg Q5MINP PRN SL FOR CHEST PAIN 04/14/24 22:15 04/15/24 01:00 Morphine Sulfate 2 mg Q30M PRN IV FOR CHEST PAIN 04/14/24 22:15 04/15/24 01:39 Furosemide (Lasix Injection) 40 mg DAILY IV 04/14/24 22:15 04/14/24 22:15 Atorvastatin Calcium (Lipitor) 20 mg DAILY PO 04/15/24 10:00 Chlorthalidone (Chlorthalidone) 25 mg DAILY PO 04/15/24 10:00 Clopidogrel Bisulfate (Plavix) 75 mg DAILY PO 04/15/24 10:00 Levothyroxine Sodium (Synthroid Tablet) 100 mcg DAILY PO 04/15/24 10:00 Clonidine HCl (Catapres Tablet) 0.2 mg TID PO 04/15/24 06:00 04/15/24 06:16 DC Hydralazine HCl (Apresoline Tablet) 100 mg TID PO 04/15/24 06:00 04/15/24 06:17 DC Pantoprazole Sodium (Protonix) 40 mg DAILY IV 04/15/24 10:00 Nicardipine HCl 250 ml @ 50 mls/hr Q5H IV 04/15/24 00:00 04/15/24 04:30 Diagnostic Test (Pha) (Accu-Chek Comfort Curve T) 1 strip ACHS 04/15/24 07:00 04/15/24 07:27 Insulin Human Regular (InsuLIN R) ACHS SC 04/15/24 07:00 04/15/24 06:37 Dextrose 50 ml UD PRN IV Blood Sugar LESS THAN 60 04/15/24 00:45 Clindamycin Phosphate 50 ml @ 50 mls/hr Q8H IV 04/15/24 12:00 Clonidine HCl (Catapres Tablet) 0.2 mg Q8H PO 04/15/24 08:30 04/15/24 08:51 Hydralazine HCl (Apresoline Tablet) 100 mg Q8H PO 04/15/24 10:00 Laboratory Labs Test 04/15/24 04:50 04/15/24 02:35 04/14/24 23:20 04/14/24 19:59 Range/Units White Blood Count 11.2 H 4.4-10.8 10^3/uL Red Blood Count 4.12 4.0-5.20 10^6/uL Hemoglobin 12.4 12.2-16.2 g/dL Hematocrit 38.1 36.0-46.0 % Mean Corpuscular Volume 92.6 80.0-100.0 fL Mean Corpuscular Hemoglobin 30.1 28.0-32.0 pg Mean Corpuscular Hemoglobin Concent 32.6 32.0-36.0 g/dL Red Cell Distribution Width 16.7 H 11.8-14.3 % Platelet Count 258 140-450 10^3/uL Mean Platelet Volume 8.7 6.9-10.8 fL Neutrophils (%) (Auto) 70.3 37.0-80.0 % Lymphocytes (%) (Auto) 19.3 10.0-50.0 % Monocytes (%) (Auto) 9.4 0.0-12.0 % Eosinophils (%) (Auto) 0.2 0.0-7.0 % Basophils (%) (Auto) 0.8 0.0-2.0 % Neutrophils # (Auto) 7.9 1.6-8.6 10 ^3/uL Lymphocytes # (Auto) 2.2 0.4-5.4 10 ^3/uL Monocytes # (Auto) 1.1 0-1.3 10 ^3/uL Eosinophils # (Auto) 0 0-0.8 10 ^3/uL Basophils # (Auto) 0.1 0-0.2 10 ^3/uL Nucleated Red Blood Cells 0.1 % Sodium Level 135 L 136-145 mmol/L Potassium Level 3.2 L 3.5-5.1 mmol/L Chloride Level 98 98-107 mmol/L Carbon Dioxide Level 26 20-31 mmol/L Anion Gap 11 5-15 Blood Urea Nitrogen 11 9-23 mg/dL Creatinine 1.26 H 0.550-1.02 mg/dL Glomerular Filtration Rate Calc 41 >90 mL/min BUN/Creatinine Ratio 8.7 L 10.0-20.0 Serum Glucose 167 H 74-106 mg/dL Calcium Level 9.7 8.7-10.4 mg/dL Total Bilirubin 0.6 0.2-1.0 mg/dL Aspartate Amino Transferase (AST) 42 H 13-40 U/L Alanine Aminotransferase (ALT) 37 7-40 U/L Alkaline Phosphatase 108 46-116 U/L Total Protein 7.5 5.7-8.2 g/dL Albumin 4.3 3.2-4.8 g/dL Influenza Type A Antigen Negative Negative Influenza Type B Antigen Negative Negative SARS-CoV-2 Antigen (Rapid) Negative NEGATIVE Prothrombin Time 11.4 9.3-11.8 sec Prothrombin Time INR 1.08 0.9-1.15 Activated Partial Thromboplast Time 28.4 24.5-34.5 SEC Lactic Acid Level 1.4 0.4-2.0 mmol/L Direct Bilirubin 0.3 <0.3 mg/dL Ammonia < 10 L 11-32 umol/L B-Type Natriuretic Peptide 197.42 0-100 pg/mL Plasma/Serum Blood Alcohol < 3.0 <10 mg/dL Hemoglobin A1c 6.1 H <5.7 % A1C Test 04/14/24 18:06 04/14/24 14:51 Range/Units Urine Color Colorless Yellow Urine Clarity Clear Clear Urine pH 8.0 5.0-9.0 Urine Specific [place] 1.007 1.001-1.035 Urine Protein 1+ H Negative Urine Ketones Negative Negative Urine Blood Negative Negative /uL Urine Nitrite Negative Negative Urine Bilirubin Negative Negative Urine Urobilinogen Normal Negative mg/dL Urine Leukocyte Esterase Negative Negative /uL Urine RBC <1 0 - 4 /hpf Urine Microscopic WBC 0-5 /HPF Urine Squamous Epithelial Cells None seen <5 /hpf Urine Bacteria None seen None Seen /hpf Urine Glucose Normal Normal mg/dL Urine Opiates Screen Neg NEGATIVE Urine Fentanyl Screen Neg NEGATIVE Urine Barbiturates Screen Neg NEGATIVE Urine Phencyclidine Screen Neg NEGATIVE Urine Amphetamines Screen Neg NEGATIVE Urine Benzodiazepines Screen Neg NEGATIVE Urine Cocaine Screen Neg NEGATIVE Urine Cannabinoids Screen Neg NEGATIVE Magnesium Level 2.1 1.6-2.6 mg/dL Thyroid Stimulating Hormone (TSH) 4.49 0.55-4.78 uIU/mL Examination: GENERAL:Normal, HEENT:Normal, NECK:Normal, CVS:Normal, ABDOMEN:Normal, MSK:Normal, SKIN:Normal, NEURO:Abnormal (Patient complaining of low back pain that limits her ability to walk, this is 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 Patient will have to follow up as an outpatient with her [place] provider Further care and management per admitting team or ER team's discretion We do recommend making sure the patient has adequate muscle relaxation medication such as Robaxin to help control her muscle spasms as well as appropriate narcotic for her to use at home until she can see her follow-up appointment Physical therapy evaluation and recommendations for safe discharge No barriers to discharge from a spine surgery perspective, as long as the patient can ambulate safely and is not a fall risk Call with questions Zaid Raza [facility] Orthopaedic Spine Surgery nurse practitioner For Dr Aashish Whittington Patient was examined, chart reviewed, labs evaluated, and diagnostic studies and findings analyzed. Case was discussed with Dr. Moose Whittington who formulated the plan of care. This medical document was created using an electronic medical record system with [employer] dictation system. Although this document has been carefully reviewed, there might still be some phonetic and typographical errors. These areas are purely typographical due to imperfections of the software programs, and do not reflect any compromise in the patient's medical care. Plan discussed with Plan discussed with: Patient, Other (Jeanette LANG RN) JOSEPH RAZA NP Apr 15, 2024 10:26
[2024-04-15] MEDS: ATORVASTATIN 20 MG TAB PO SCH (10:30)
[2024-04-15] MEDS: LEVOTHYROXINE SODIUM 100 MCG TAB PO SCH (10:30)
[2024-04-15] MEDS: ENOXAPARIN SOD 40 MG/0.4 ML SYRINGE SC SCH (10:30)
[2024-04-15] MEDS: hydrALAZINE HCL 25 MG TAB PO SCH (10:31)
[2024-04-15] MEDS: PANTOPRAZOLE 40 MG/10 ML VIAL INJ IV SCH (10:33)
[2024-04-15] MEDS: CLOPIDOGREL BISULFATE 75 MG TAB PO SCH (10:34)
[2024-04-15] MEDS ORDERED: CLINDAMYCIN 600MG IV 50 ML IV SCH (12:00)
--- NOTE | 2024-04-15 14:19 | DVHPN2 ---
Progress Note Date Seen: Apr 15, 2024 Medical Necessity Reason Pt with a Central, PICC or Fol: No Subjective Patient reports: No new complaints Review of Systems: HEENT:Normal, CVS:Normal, RESPIRATORY:Normal, GI:Normal, :Normal, MSK:Normal, NEURO:Normal Objective vital signs Vital Sign Date Time Temp Pulse Resp B/P (MAP) Pulse Ox O2 Delivery O2 Flow Rate FiO2 04/15/24 12:00 91 22 123/55 (77) 95 04/15/24 00:30 Nasal Cannula* 2 28 04/15/24 00:30 98.2 98.2 Total Intake and Output 04/14/24 04/14/24 04/15/24 15:00 23:00 07:00 Intake Total 187.45 ml Balance 187.45 ml medications Current Medications Medications Dose Ordered Sig/Kandace Route Start Time Stop Time Status Last Admin Dose Admin Sodium Chloride 10 ml Q8HR IV 04/15/24 06:00 04/15/24 06:09 10 ML Enoxaparin Sodium 40 mg DAILY SC 04/15/24 10:00 04/15/24 10:30 40 MG Acetaminophen 650 mg Q6HP PRN PO 04/14/24 22:15 Morphine Sulfate 2 mg Q4HPRN PRN IV 04/14/24 22:15 Nitroglycerin 0.4 mg Q5MINP PRN SL 04/14/24 22:15 04/15/24 01:00 0.4 MG Morphine Sulfate 2 mg Q30M PRN IV 04/14/24 22:15 04/15/24 01:39 2 MG Furosemide 40 mg DAILY IV 04/14/24 22:15 04/15/24 10:33 40 MG Atorvastatin Calcium 20 mg DAILY PO 04/15/24 10:00 04/15/24 10:30 20 MG Chlorthalidone 25 mg DAILY PO 04/15/24 10:00 Clopidogrel Bisulfate 75 mg DAILY PO 04/15/24 10:00 04/15/24 10:34 75 MG Levothyroxine Sodium 100 mcg DAILY PO 04/15/24 10:00 04/15/24 10:30 100 MCG Pantoprazole Sodium 40 mg DAILY IV 04/15/24 10:00 04/15/24 10:33 40 MG Nicardipine HCl 250 ml @ 50 mls/hr Q5H IV 04/15/24 00:00 04/15/24 04:30 150 MLS/HR Diagnostic Test (Pha) 1 strip ACHS 04/15/24 07:00 04/15/24 11:09 1 STRIP Insulin Human Regular ACHS SC 04/15/24 07:00 04/15/24 06:37 3 UNITS Dextrose 50 ml UD PRN IV 04/15/24 00:45 Clindamycin Phosphate 50 ml @ 50 mls/hr Q8H IV 04/15/24 12:00 Clonidine HCl 0.2 mg Q8H PO 04/15/24 08:30 04/15/24 08:51 0.2 MG Hydralazine HCl 100 mg Q8H PO 04/15/24 10:00 04/15/24 10:31 100 MG Examination: GENERAL:Normal, HEENT:Normal, NECK:Normal, LUNGS:Normal, CVS:Normal, ABDOMEN:Normal, MSK:Normal, SKIN:Normal, NEURO:Normal, :Normal laboratory and microbiology Laboratory Tests 04/15/24 04:50 Test 04/15/24 04:50 Range/Units Serum Glucose 167 H 74-106 mg/dL Problem List/Assessment/Plan Problem List/Assessment/Plan #1 djd back/ spinal stenosis with severe pain: cont meds #2 hypertensive urgency: iv nicardipine- wean off, cont meds #3 obesity #4 dm: ssi #5 ckd stage 3 #6 ? acute diastolic/systolic heart failure: echo #7 transaminitis: liver usg advance care planning- full code- time spent 19 mins Plan discussed with: Patient Date of Service: Apr 15, 2024 Billing Provider: EZRA REESE MD Common Visit Codes: [id number] INP/OBS CARE(HIGH) Secondary Visit Codes: [id number] CARE PLAN 30 MINUTES EZRA REESE MD Apr 15, 2024 14:18
--- NOTE | 2024-04-15 15:55 | DVH ---
INDICATION: liver failure TECHNIQUE: Multiple real-time sonographic images were obtained of the right upper quadrant. COMPARISON: None FINDINGS: The liver demonstrates homogeneous echotexture without focal mass lesions. The liver measu res 13.9 cm. There is no intrahepatic or extrahepatic ductal dilatation. The common duct measures 1.0 cm. Post cholecystectomy. The right kidney measures 10.2 cm. The right kidney is normal in contour, size, and shape. The echoge nicity is normal. There is no hydronephrosis. The pancreas is not well visualized due to overlying bowel gas. IMPRESSION: Post cholecystectomy.
[2024-04-15] MEDS: LIDOCAINE 5% TOPICAL PATCH TOP ONE (18:13)
[2024-04-15 19:42] VITALS: PULSE 83; RESP 10; O2SAT 97
[2024-04-15] MEDS: ACETAMINOPHEN 325 MG TAB PO PRN (21:44)
[2024-04-16] VITALS (8 sets, daily range): BP systolic 121–150; BP diastolic 55–73; PULSE 67–93; RESP 17–18; TEMP 97.4–98.2; O2SAT 95–100
[2024-04-16] MEDS: LIDOCAINE 5% TOPICAL PATCH TOP SCH (09:03)
[2024-04-16 10:56] LABS: Basophils # (auto) 0 10 ^3/uL (0-0.2); Basophils % (auto) 0.5 % (0.0-2.0); Eosinophils # (auto) 0.1 10 ^3/uL (0-0.8); Eosinophils % (auto) 1.4 % (0.0-7.0); Hemoglobin 12.8 g/dL (12.2-16.2); Lymphocytes % (auto) 25.2 % (10.0-50.0); Mean Corpuscular Hemoglobin 30.5 pg (28.0-32.0); Mean Corpuscular Hgb Conc. 32.8 g/dL (32.0-36.0); Mean Corpuscular Volume 92.9 fL (80.0-100.0); Monocytes # (auto) 0.6 10 ^3/uL (0-1.3); Neutrophils # (auto) 5.2 10 ^3/uL (1.6-8.6); Neutrophils % (auto) 65.9 % (37.0-80.0); Nucleated Red Blood Cells % 0.4 %; Platelet Count (auto) 278 10^3/uL (140-450); Red Cell Distribution Width 16.9 % (11.8-14.3); White Blood Cell 7.9 10^3/uL (4.4-10.8)
[2024-04-16 11:08] LABS: Anion Gap 7 (5-15); Carbon Dioxide 28 mmol/L (20-31)
[2024-04-16 11:09] LABS: Calcium 9.9 mg/dL (8.7-10.4)
[2024-04-16 11:14] LABS: Magnesium 2.2 mg/dL (1.6-2.6)
[2024-04-16 12:10] LABS: BUN/Creatinine Ratio 9.3 (10.0-20.0); Blood Urea Nitrogen 13 mg/dL (9-23); Chloride 97 mmol/L (98-107); Glucose 178 mg/dL (74-106); Potassium 4.9 mmol/L (3.5-5.1); Sodium 132 mmol/L (136-145)
--- NOTE | 2024-04-16 14:39 | DVHDS2 ---
Discharge Summary Date of Admission Apr 14, 2024 at 22:05 Date of Discharge: Apr 16, 2024 Labs/Diagnostic Data: Laboratory Results Test 04/16/24 11:19 04/16/24 10:10 04/15/24 04:50 04/15/24 02:35 POC Glucose 157 mg/dl (70-106) White Blood Count 7.9 10^3/uL (4.4-10.8) Red Blood Count 4.20 10^6/uL (4.0-5.20) Hemoglobin 12.8 g/dL (12.2-16.2) Hematocrit 39.0 % (36.0-46.0) Mean Corpuscular Volume 92.9 fL (80.0-100.0) Mean Corpuscular Hemoglobin 30.5 pg (28.0-32.0) Mean Corpuscular Hemoglobin Concent 32.8 g/dL (32.0-36.0) Red Cell Distribution Width 16.9 % (11.8-14.3) Platelet Count 278 10^3/uL (140-450) Mean Platelet Volume 8.0 fL (6.9-10.8) Neutrophils (%) (Auto) 65.9 % (37.0-80.0) Lymphocytes (%) (Auto) 25.2 % (10.0-50.0) Monocytes (%) (Auto) 7.0 % (0.0-12.0) Eosinophils (%) (Auto) 1.4 % (0.0-7.0) Basophils (%) (Auto) 0.5 % (0.0-2.0) Neutrophils # (Auto) 5.2 10 ^3/uL (1.6-8.6) Lymphocytes # (Auto) 2.0 10 ^3/uL (0.4-5.4) Monocytes # (Auto) 0.6 10 ^3/uL (0-1.3) Eosinophils # (Auto) 0.1 10 ^3/uL (0-0.8) Basophils # (Auto) 0 10 ^3/uL (0-0.2) Nucleated Red Blood Cells 0.4 % Sodium Level 132 mmol/L (136-145) Potassium Level 4.9 mmol/L (3.5-5.1) Chloride Level 97 mmol/L (98-107) Carbon Dioxide Level 28 mmol/L (20-31) Anion Gap 7 (5-15) Blood Urea Nitrogen 13 mg/dL (9-23) Creatinine 1.40 mg/dL (0.550-1.02) Glomerular Filtration Rate Calc 36 mL/min (>90) BUN/Creatinine Ratio 9.3 (10.0-20.0) Serum Glucose 178 mg/dL (74-106) Calcium Level 9.9 mg/dL (8.7-10.4) Magnesium Level 2.2 mg/dL (1.6-2.6) Total Bilirubin 0.6 mg/dL (0.2-1.0) Aspartate Amino Transferase (AST) 42 U/L (13-40) Alanine Aminotransferase (ALT) 37 U/L (7-40) Alkaline Phosphatase 108 U/L (46-116) Total Protein 7.5 g/dL (5.7-8.2) Albumin 4.3 g/dL (3.2-4.8) Influenza Type A Antigen Negative (Negative) Influenza Type B Antigen Negative (Negative) SARS-CoV-2 Antigen (Rapid) Negative (NEGATIVE) Test 04/14/24 23:20 04/14/24 19:59 04/14/24 18:06 04/14/24 14:51 Prothrombin Time 11.4 sec (9.3-11.8) Prothrombin Time INR 1.08 (0.9-1.15) Activated Partial Thromboplast Time 28.4 SEC (24.5-34.5) Lactic Acid Level 1.4 mmol/L (0.4-2.0) Direct Bilirubin 0.3 mg/dL (<0.3) Ammonia < 10 umol/L (11-32) B-Type Natriuretic Peptide 197.42 pg/mL (0-100) Plasma/Serum Blood Alcohol < 3.0 mg/dL (<10) Hemoglobin A1c 6.1 % A1C (<5.7) Urine Color Colorless (Yellow) Urine Clarity Clear (Clear) Urine pH 8.0 (5.0-9.0) Urine Specific [place] 1.007 (1.001-1.035) Urine Protein 1+ (Negative) Urine Ketones Negative (Negative) Urine Blood Negative /uL (Negative) Urine Nitrite Negative (Negative) Urine Bilirubin Negative (Negative) Urine Urobilinogen Normal mg/dL (Negative) Urine Leukocyte Esterase Negative /uL (Negative) Urine RBC <1 /hpf (0 - 4) Urine Microscopic WBC /HPF (0-5) Urine Squamous Epithelial Cells None seen /hpf (<5) Urine Bacteria None seen /hpf (None Seen) Urine Glucose Normal mg/dL (Normal) Urine Opiates Screen Neg (NEGATIVE) Urine Fentanyl Screen Neg (NEGATIVE) Urine Barbiturates Screen Neg (NEGATIVE) Urine Phencyclidine Screen Neg (NEGATIVE) Urine Amphetamines Screen Neg (NEGATIVE) Urine Benzodiazepines Screen Neg (NEGATIVE) Urine Cocaine Screen Neg (NEGATIVE) Urine Cannabinoids Screen Neg (NEGATIVE) Thyroid Stimulating Hormone (TSH) 4.49 uIU/mL (0.55-4.78) Other Laboratory Tests 04/16/24 10:10 Brief Hx & Hospital Course: see dictated note Condition at Discharge: Fair Final Diagnosis/Problems List back pain Discharge Disposition: Acute Care Facility Discharge Instruct/Medications Diet: Cardiac 2g Na,low cholest Activity: No Restrictions, As Tolerated Follow Up/Referral: fu with betsy layne Medications: per apr Discharge Statement: "Patient was advised to return to the ER or call 911 if any headaches, dizziness, shortness of breath, chest pain, abdominal pain, bleeding, fevers, or worsening of medical condition. Patient was counseled about treatment plan, medications, possible side effects, patientverbalized understanding. All questions were answered to the best of my ability. This discharge took greater then 30 minutes in planning, reviewing documentation, counseling the patient, and discussing with other team members." ASSESSMENT ASSESSMENT Assessment back pain Date of Service: Apr 16, 2024 Billing Provider: EZRA REESE MD Common Visit Codes: [id number] DISCH DAY >30min EZRA REESE MD Apr 16, 2024 14:39
--- NOTE | 2024-04-16 15:33 | DVHDS ---
DATE OF DISCHARGE: 04/16/2024 TRANSFER SUMMARY DATE OF TRANSFER: 04/16/2024 HISTORY OF PRESENT ILLNESS: The patient is an 88-year-old lady who was admitted with history of bilateral lower extremity pain and severe back pain. The patient has history of coronary artery disease, congestive heart failure, type 2 diabetes, hypertension, hyperlipidemia and GERD. She is also status post PTCA. HOSPITAL COURSE: The patient had a lumbar spine CT that showed evidence of multilevel moderate to severe DJD as well as severe central spinal canal stenosis from L2-L3 to L4-L5. The patient had a CT of abdomen and pelvis that showed colonic diverticulosis without acute diverticulitis. The patient had a Doppler of lower extremity that was negative for DVT. The patient had a liver ultrasound that showed status post cholecystectomy. The patient's creatinine was 1.4. She had evidence of transaminitis. There is no evidence of UTI. The patient will now be transferred to [place] for further management. Echocardiogram is currently pending. FINAL DIAGNOSES: Therefore: * Severe back pain with degenerative joint disease of spine and spinal stenosis. * Hypertensive urgency. * Obesity. * Diabetes mellitus. * Chronic kidney disease, stage 3. * Transaminitis. * Questionable acute systolic/diastolic heart failure. The patient's blood pressure at the time of admission was 254/137. She was placed initially on intravenous nicardipine drip. The patient's blood pressure is now under control. Time spent in discharge planning and review of plan with the patient, nursing and paperwork was 39 minutes. MD JERAMIE Amaya/DION/BELIA TID: [id number] RECEIPT: [id number]
--- NOTE | 2024-04-16 20:16 | DVHSR ---
APPROVED REPORT EXAM: Two-dimensional and M-mode echocardiogram with Doppler and color Doppler. Blood Pressure: 123/55 mmHg INDICATION Heart Failure RISK FACTORS Height: 5'3", Weight: 198 DIMENSIONS LVDd4.8 (3.8-5.7cm)LA (2D)4.0 (1.9-4.0cm)Aortic Root (2.0-3.7cm) LVDs2.9 (2.5-4.0cm)LA (MM) (1.9-4.0cm)Aortic Cusp Exc (1.5-2.0cm) EF (%) 70.0 (55-70%)Rt. Atrium3.6 (1.9-4.0cm)Asc. Aorta cm IVSd1.2 (0.7-1.1cm)RV (D) (1.8-2.4cm) Mitral Valve MitralMitral Stenosis E wave0.69m/sMV Mean GR.mmHg A wave1.52m/sMV Peak GR.mmHg E/A ratio0.52D MVAcm2 DECEL [id number] 1/2 [id number] IVRTmsDop MVA2.58cm2 Aortic Valve Aortic ValveAortic Stenosis V11.39m/Dima Mean GR.21mmHg V22.96m/Dima Peak GR.35mmHg LVOT Diameter2.0 (1.8-2.4cm)Doppler AVA1.47cm2 Tricuspid Valve TR Velocity3.37m/s [id number] Other Information Quality : Technically LimitedRhythm : Technically limited study due to body habitus. Conclusion Technically good study. Off axis views. Limited views available. There appears to be left atrial enlargement with concentric LVH in the sigmoid septum. There is mild mitral annular calcification. There appears to be aortic sclerosis/Stenosis with dimi nution in excursion of the left and non coronary cusps. The tricuspid and pulmonic appear to be stru cturally normal. Left ventricular function is preserved at 60% with normal RV function. Doppler reveals moderate aortic stenosis with a peak gradient of35 mmHg and a mean gradient of 20 mmH g. Moderate tricuspid regurgitation with associated pulmonary hypertension No pericardial effusion masses or vegetations discernible
[2024-04-17] VITALS (8 sets, daily range): BP systolic 117–145; BP diastolic 59–70; PULSE 57–71; RESP 16–20; TEMP 97.5–98.9; O2SAT 95–98
--- NOTE | 2024-04-17 15:18 | DVHPN2 ---
Subjective for transfer to [place], pending MRI and read Changes from previous H/P or p: No Changes Eyes: No Pain, No Vision change, No Conjunctivae inflammation, No Eyelid inflammation, No Other, No Redness ENT: No Ear pain, No Ear discharge, No Nose pain, No Nose discharge, No Nose congestion, No Mouth pain, No Mouth swelling, No Throat pain, No Throat swelling, No Other Cardiovascular: Edema Respiratory: No Cough, No Dry, No Shortness of breath, No SOB with excertion, No Wheezing, No Hemoptysis, No Pleuritic Pain, No Sputum, No Other Gastrointestinal: Abdominal Pain (Bloating) Genitourinary: Retention Musculoskeletal: back pain, leg pain Skin: No Rash, No Lesions, No Jaundice, No Bruising, No Other Objective Vitals Vital Signs Date Time Temp Pulse Resp B/P (MAP) Pulse Ox O2 Delivery O2 Flow Rate FiO2 04/17/24 13:00 98.9 65 20 133/70 (91) 97 98.9 04/17/24 07:30 Nasal Cannula* 4 36 Intake/Output Intake and Output 04/17/24 07:00 Intake Total 1300 ml Output Total 1100 ml Balance 200 ml Intake Oral 1300 ml Output Urine Total 1100 ml Medications Current Medications Medications Dose Ordered Sig/Kandace Route Start Time Stop Time Status Last Admin Dose Admin Sodium Chloride 10 ml Q8HR IV 04/15/24 06:00 04/17/24 13:47 10 ML Enoxaparin Sodium 40 mg DAILY SC 04/15/24 10:00 04/16/24 09:03 40 MG Acetaminophen 650 mg Q6HP PRN PO 04/14/24 22:15 04/17/24 06:28 650 MG Morphine Sulfate 2 mg Q4HPRN PRN IV 04/14/24 22:15 Nitroglycerin 0.4 mg Q5MINP PRN SL 04/14/24 22:15 04/15/24 01:00 0.4 MG Morphine Sulfate 2 mg Q30M PRN IV 04/14/24 22:15 04/15/24 01:39 2 MG Atorvastatin Calcium 20 mg DAILY PO 04/15/24 10:00 04/17/24 11:05 20 MG Chlorthalidone 25 mg DAILY PO 04/15/24 10:00 Clopidogrel Bisulfate 75 mg DAILY PO 04/15/24 10:00 04/17/24 11:05 75 MG Levothyroxine Sodium 100 mcg DAILY PO 04/15/24 10:00 04/17/24 11:05 100 MCG Pantoprazole Sodium 40 mg DAILY IV 04/15/24 10:00 04/17/24 11:04 40 MG Diagnostic Test (Pha) 1 strip ACHS 04/15/24 07:00 04/17/24 12:17 1 STRIP Insulin Human Regular ACHS SC 04/15/24 07:00 04/15/24 22:25 3 UNITS Dextrose 50 ml UD PRN IV 04/15/24 00:45 Clonidine HCl 0.2 mg Q8H PO 04/15/24 08:30 04/17/24 08:35 0.2 MG Hydralazine HCl 100 mg Q8H PO 04/15/24 10:00 04/17/24 11:05 100 MG Lidocaine 1 patch DAILY TOP 04/16/24 10:00 04/17/24 11:35 1 PATCH Laboratory Results Laboratory Tests 04/16/24 10:10 Urinalysis Test 04/14/24 18:06 Urine Color Colorless (Yellow) Urine Clarity Clear (Clear) Urine pH 8.0 (5.0-9.0) Urine Specific [place] 1.007 (1.001-1.035) Urine Protein 1+ (Negative) H Urine Ketones Negative (Negative) Urine Blood Negative /uL (Negative) Urine Nitrite Negative (Negative) Urine Bilirubin Negative (Negative) Urine Urobilinogen Normal mg/dL (Negative) Urine Leukocyte Esterase Negative /uL (Negative) Urine RBC <1 /hpf (0 - 4) Urine Microscopic WBC /HPF (0-5) Urine Squamous Epithelial Cells None seen /hpf (<5) Urine Bacteria None seen /hpf (None Seen) Urine Glucose Normal mg/dL (Normal) Assessment/Plan Assessment/Plan #1 djd back/ spinal stenosis with severe pain: cont meds #2 hypertensive urgency: iv nicardipine- wean off, cont meds #3 obesity #4 dm: ssi #5 ckd stage 3 #6 ? acute diastolic/systolic heart failure: echo #7 transaminitis: liver usg Plan discussed with: Patient, Daughter Date of Service: Apr 17, 2024 Billing Provider: BAUDILIO REID MD Common Visit Codes: [id number] INP/OBS CARE(HIGH) BAUDILIO REID MD Apr 17, 2024 15:18
[2024-04-17] MEDS: LORazepam 0.5 MG TAB PO ONE (15:33)
--- NOTE | 2024-04-17 16:30 | DVH ---
PROCEDURE: MRI LUMBAR SPINE WO CONTRAST INDICATION: REQUESTED BY [facility] PRIOR TO TRANSFER Exam Date: 04/17/2024 02:14 PM COMPARISON: None TECHNIQUE: MRI lumbar spine without intravenous contrast. FINDINGS: There is loss of the normal lumbar lordosis. Severe disc space narrowing of the L3-4 through L5-S1 l evels. No acute vertebral body fracture. No metastatic disease. Modic type 2 changes seen at the L3-4 and L4-5 disc space levels.. The vertebral body heights and marrow signal are within normal limits. The visualized distal spinal cord and conus medullaris are within normal limits. The conus medulla ris appears to terminate within normal limits. The visualized retroperitoneal and paraspinal soft ti ssues are unremarkable. The following axial levels are detailed below: T12-L1: Unremarkable. L1-L2: Unremarkable. L2-L3: 3 mm annular disc bulge. Moderate central spinal canal stenosis. L3-L4: 6 mm broad-base osteophyte severe central spinal canal stenosis. Severe bilateral lateral rec ess stenosis. Moderately severe left-sided neural foraminal narrowing. 3 mm annular disc bulge. Mode rate central spinal canal stenosis. L4-L5: 8 mm broad-based osteophyte. Severe central spinal canal stenosis. Severe bilateral lateral r ecess stenosis. Severe bilateral facet arthropathy. Moderate bilateral neural foraminal narrowing, l eft greater than right. Disc material seen in the left L4-5 neural foramen. L5-S1: Unremarkable. IMPRESSION: 1. Severe central spinal canal stenosis at the L4-5 level. Moderate central spinal canal stenosis of the L2-3 and L3-4 levels. Severe multilevel spondylosis. No acute vertebral body fracture.
[2024-04-18] VITALS (8 sets, daily range): BP systolic 148–179; BP diastolic 69–91; PULSE 20–65; RESP 18–20; TEMP 97.9–98.8; O2SAT 95–97
[2024-04-18] MEDS: MELATONIN 5 MG TAB PO ONE (00:45)
[2024-04-18 06:36] LABS: Basophils # (auto) 0 10 ^3/uL (0-0.2); Basophils % (auto) 0.5 % (0.0-2.0); Eosinophils # (auto) 0.1 10 ^3/uL (0-0.8); Eosinophils % (auto) 1.1 % (0.0-7.0); Hematocrit 33.6 % (36.0-46.0); Hemoglobin 11.6 g/dL (12.2-16.2); Lymphocytes % (auto) 28.5 % (10.0-50.0); Mean Corpuscular Hemoglobin 31.6 pg (28.0-32.0); Mean Corpuscular Hgb Conc. 34.4 g/dL (32.0-36.0); Mean Corpuscular Volume 91.7 fL (80.0-100.0); Monocytes # (auto) 0.6 10 ^3/uL (0-1.3); Monocytes % (auto) 8.3 % (0.0-12.0); Neutrophils # (auto) 4.4 10 ^3/uL (1.6-8.6); Neutrophils % (auto) 61.6 % (37.0-80.0); Nucleated Red Blood Cells % 0.1 %; Platelet Count (auto) 226 10^3/uL (140-450); Red Blood Cells 3.66 10^6/uL (4.0-5.20); Red Cell Distribution Width 16.5 % (11.8-14.3); White Blood Cell 7.1 10^3/uL (4.4-10.8)
[2024-04-18 06:52] LABS: Calcium 9.6 mg/dL (8.7-10.4); Chloride 101 mmol/L (98-107); Potassium 3.6 mmol/L (3.5-5.1); Sodium 138 mmol/L (136-145)
[2024-04-18 06:53] LABS: Anion Gap 10 (5-15); Carbon Dioxide 27 mmol/L (20-31)
[2024-04-18 06:58] LABS: BUN/Creatinine Ratio 11.3 (10.0-20.0); Blood Urea Nitrogen 13 mg/dL (9-23); Glucose 126 mg/dL (74-106)
[2024-04-18] MEDS: POLYETHYLENE GLYCOL 17 GM PWDR PO PRN (13:35)
--- NOTE | 2024-04-18 15:29 | DVHPN2 ---
Subjective for transfer to [place]. MRI done. abdominal pain, prior imaging with dicerticulosis without diverticulitis. will add bowel reg Changes from previous H/P or p: No Changes Eyes: No Pain, No Vision change, No Conjunctivae inflammation, No Eyelid inflammation, No Other, No Redness ENT: No Ear pain, No Ear discharge, No Nose pain, No Nose discharge, No Nose congestion, No Mouth pain, No Mouth swelling, No Throat pain, No Throat swelling, No Other Cardiovascular: Edema Respiratory: No Cough, No Dry, No Shortness of breath, No SOB with excertion, No Wheezing, No Hemoptysis, No Pleuritic Pain, No Sputum, No Other Gastrointestinal: Abdominal Pain (Bloating) Genitourinary: Retention Musculoskeletal: back pain, leg pain Skin: No Rash, No Lesions, No Jaundice, No Bruising, No Other Objective Vitals Vital Signs Date Time Temp Pulse Resp B/P (MAP) Pulse Ox O2 Delivery O2 Flow Rate FiO2 04/18/24 13:00 97.9 62 20 163/91 (115) 96 97.9 04/18/24 08:00 Room Air* 0 21 Intake/Output Intake and Output 04/18/24 07:00 Intake Total 1150 ml Output Total 2800 ml Balance -1650 ml Intake Oral 1150 ml Output Urine Total 2800 ml Medications Current Medications Medications Dose Ordered Sig/Kandace Route Start Time Stop Time Status Last Admin Dose Admin Sodium Chloride 10 ml Q8HR IV 04/15/24 06:00 04/18/24 13:32 10 ML Enoxaparin Sodium 40 mg DAILY SC 04/15/24 10:00 04/18/24 09:44 40 MG Acetaminophen 650 mg Q6HP PRN PO 04/14/24 22:15 04/17/24 06:28 650 MG Morphine Sulfate 2 mg Q4HPRN PRN IV 04/14/24 22:15 Nitroglycerin 0.4 mg Q5MINP PRN SL 04/14/24 22:15 04/15/24 01:00 0.4 MG Morphine Sulfate 2 mg Q30M PRN IV 04/14/24 22:15 04/15/24 01:39 2 MG Atorvastatin Calcium 20 mg DAILY PO 04/15/24 10:00 04/18/24 09:46 20 MG Chlorthalidone 25 mg DAILY PO 04/15/24 10:00 04/18/24 09:46 25 MG Clopidogrel Bisulfate 75 mg DAILY PO 04/15/24 10:00 04/18/24 09:46 75 MG Levothyroxine Sodium 100 mcg DAILY PO 04/15/24 10:00 04/18/24 09:47 100 MCG Pantoprazole Sodium 40 mg DAILY IV 04/15/24 10:00 04/18/24 09:43 40 MG Diagnostic Test (Pha) 1 strip ACHS 04/15/24 07:00 04/18/24 11:17 1 STRIP Insulin Human Regular ACHS SC 04/15/24 07:00 04/15/24 22:25 3 UNITS Dextrose 50 ml UD PRN IV 04/15/24 00:45 Clonidine HCl 0.2 mg Q8H PO 04/15/24 08:30 04/18/24 06:52 0.2 MG Hydralazine HCl 100 mg Q8H PO 04/15/24 10:00 04/18/24 09:46 100 MG Lidocaine 1 patch DAILY TOP 04/16/24 10:00 04/18/24 09:44 1 PATCH Polyethylene Glycol 17 gm DAILYPRN PRN PO 04/18/24 12:00 04/18/24 13:35 17 GM Laboratory Results Laboratory Tests 04/18/24 05:34 Chemistry Test 04/18/24 05:34 Calcium Level 9.6 mg/dL (8.7-10.4) Urinalysis Test 04/14/24 18:06 Urine Color Colorless (Yellow) Urine Clarity Clear (Clear) Urine pH 8.0 (5.0-9.0) Urine Specific [place] 1.007 (1.001-1.035) Urine Protein 1+ (Negative) H Urine Ketones Negative (Negative) Urine Blood Negative /uL (Negative) Urine Nitrite Negative (Negative) Urine Bilirubin Negative (Negative) Urine Urobilinogen Normal mg/dL (Negative) Urine Leukocyte Esterase Negative /uL (Negative) Urine RBC <1 /hpf (0 - 4) Urine Microscopic WBC /HPF (0-5) Urine Squamous Epithelial Cells None seen /hpf (<5) Urine Bacteria None seen /hpf (None Seen) Urine Glucose Normal mg/dL (Normal) Assessment/Plan Assessment/Plan #1 djd back/ spinal stenosis with severe pain: cont meds #2 hypertensive urgency: iv nicardipine- wean off, cont meds #3 obesity #4 dm: ssi #5 ckd stage 3 #6 ? acute diastolic/systolic heart failure: echo #7 transaminitis: liver usg Plan discussed with: Patient My Orders Orders - BAUDILIO REID MD Procedure Category Date Status Time Polyethylene Glycol PHA 04/18/24 In Process 17g Powder (Miralax 12:00 Date of Service: Apr 18, 2024 Billing Provider: BAUDILIO REID MD Common Visit Codes: [id number] INP/OBS CARE(HIGH) BAUDILIO REID MD Apr 18, 2024 15:29
[2024-04-19 01:00] VITALS: BP 189/83; PULSE 63; RESP 18; TEMP 97.6; O2SAT 96
[2024-04-19] MEDS ORDERED: LOSA-533 PO (03:17)
[2024-04-19 05:00] VITALS: BP 150/68; PULSE 66; RESP 18; TEMP 97.8; O2SAT 95
[2024-04-19] MEDS: LACTULOSE 20Gm/30ML SOLN PO SCH (06:30)
[2024-04-19 08:00] VITALS: PULSE 59
[2024-04-19 08:39] VITALS: BP 186/77; PULSE 60; RESP 17; TEMP 98.5; O2SAT 96
[2024-04-19 12:00] VITALS: BP 167/83; PULSE 67; RESP 15; TEMP 97.6; O2SAT 96
--- NOTE | 2024-04-19 13:35 | DVHPN2 ---
Subjective [facility] not taking transfer, ortho no acute intervention, has pain mgmt at home. stable to [place] to follow up with [facility]. please see prior dc sum for details Changes from previous H/P or p: No Changes Eyes: No Pain, No Vision change, No Conjunctivae inflammation, No Eyelid inflammation, No Other, No Redness ENT: No Ear pain, No Ear discharge, No Nose pain, No Nose discharge, No Nose congestion, No Mouth pain, No Mouth swelling, No Throat pain, No Throat swelling, No Other Cardiovascular: Edema Respiratory: No Cough, No Dry, No Shortness of breath, No SOB with excertion, No Wheezing, No Hemoptysis, No Pleuritic Pain, No Sputum, No Other Gastrointestinal: Abdominal Pain (Bloating) Genitourinary: Retention Musculoskeletal: back pain, leg pain Skin: No Rash, No Lesions, No Jaundice, No Bruising, No Other Objective Vitals Vital Signs Date Time Temp Pulse Resp B/P (MAP) Pulse Ox O2 Delivery O2 Flow Rate FiO2 04/19/24 12:00 97.6 67 15 167/83 (111) 96 97.6 04/19/24 08:00 Room Air* 0 21 Intake/Output Intake and Output 04/19/24 07:00 Intake Total 1400 ml Balance 1400 ml Intake Oral 1400 ml # Voids 4 # Bowel Movements 1 Medications Current Medications Medications Dose Ordered Sig/Kandace Route Start Time Stop Time Status Last Admin Dose Admin Sodium Chloride 10 ml Q8HR IV 04/15/24 06:00 04/19/24 06:32 10 ML Enoxaparin Sodium 40 mg DAILY SC 04/15/24 10:00 04/19/24 09:25 40 MG Acetaminophen 650 mg Q6HP PRN PO 04/14/24 22:15 04/19/24 00:20 650 MG Morphine Sulfate 2 mg Q4HPRN PRN IV 04/14/24 22:15 Nitroglycerin 0.4 mg Q5MINP PRN SL 04/14/24 22:15 04/15/24 01:00 0.4 MG Morphine Sulfate 2 mg Q30M PRN IV 04/14/24 22:15 04/15/24 01:39 2 MG Atorvastatin Calcium 20 mg DAILY PO 04/15/24 10:00 04/19/24 09:26 20 MG Chlorthalidone 25 mg DAILY PO 04/15/24 10:00 04/19/24 09:27 25 MG Clopidogrel Bisulfate 75 mg DAILY PO 04/15/24 10:00 04/19/24 09:26 75 MG Levothyroxine Sodium 100 mcg DAILY PO 04/15/24 10:00 04/19/24 09:26 100 MCG Pantoprazole Sodium 40 mg DAILY IV 04/15/24 10:00 04/19/24 09:25 40 MG Diagnostic Test (Pha) 1 strip ACHS 04/15/24 07:00 04/19/24 11:30 1 STRIP Insulin Human Regular ACHS SC 04/15/24 07:00 04/15/24 22:25 3 UNITS Dextrose 50 ml UD PRN IV 04/15/24 00:45 Clonidine HCl 0.2 mg Q8H PO 04/15/24 08:30 04/19/24 09:28 0.2 MG Hydralazine HCl 100 mg Q8H PO 04/15/24 10:00 04/19/24 09:28 100 MG Lidocaine 1 patch DAILY TOP 04/16/24 10:00 04/19/24 09:29 1 PATCH Polyethylene Glycol 17 gm DAILYPRN PRN PO 04/18/24 12:00 04/18/24 13:35 17 GM Lactulose 30 ml TID PO 04/19/24 06:00 04/19/24 06:30 30 ML Laboratory Results Laboratory Tests 04/18/24 05:34 Urinalysis Test 04/14/24 18:06 Urine Color Colorless (Yellow) Urine Clarity Clear (Clear) Urine pH 8.0 (5.0-9.0) Urine Specific [place] 1.007 (1.001-1.035) Urine Protein 1+ (Negative) H Urine Ketones Negative (Negative) Urine Blood Negative /uL (Negative) Urine Nitrite Negative (Negative) Urine Bilirubin Negative (Negative) Urine Urobilinogen Normal mg/dL (Negative) Urine Leukocyte Esterase Negative /uL (Negative) Urine RBC <1 /hpf (0 - 4) Urine Microscopic WBC /HPF (0-5) Urine Squamous Epithelial Cells None seen /hpf (<5) Urine Bacteria None seen /hpf (None Seen) Urine Glucose Normal mg/dL (Normal) Assessment/Plan Assessment/Plan #1 djd back/ spinal stenosis with severe pain: cont meds #2 hypertensive urgency: iv nicardipine- wean off, cont meds #3 obesity #4 dm: ssi #5 ckd stage 3 #6 ? acute diastolic/systolic heart failure: echo #7 transaminitis: liver usg Plan discussed with: Patient My Orders Orders - BAUDILIO REID MD Procedure Category Date Status Time Discharge DISCHARGE 04/19/24 Verified 13:33 Date of Service: Apr 19, 2024 Billing Provider: BAUDILIO REID MD Common Visit Codes: [id number] DISCH DAY >30min BAUDILIO REID MD Apr 19, 2024 13:35
[2024-04-19 15:33] VITALS: BP 167/83; PULSE 85; RESP 15; TEMP 36.4; O2SAT 96
== END 2024-04-19 16:22 | disposition home or self-care (01) | DRG 551 ==
LOC: EDBD 12:20 → ER 12:20 → EEVIPCON 12:20 → OVERFLOW 22:05 → TELE-WESTW 04-15 23:25
PROVIDERS: ADMIT Student in an Organized Health Care Education/Training Program; ATTEND Student in an Organized Health Care Education/Training Program
DX: M48.061 Spinal stenosis, lumbar region without neurogenic claudication (principal); I50.41 Acute combined systolic (congestive) and diastolic (congestive) heart failure; G83.4 Cauda equina syndrome; I13.0 Hypertensive heart and chronic kidney disease with heart failure and stage 1 through stage 4 chronic kidney disease, or unspecified chronic kidney disease; M47.26 Other spondylosis with radiculopathy, lumbar region; K21.9 Gastro-esophageal reflux disease without esophagitis; R33.9 Retention of urine, unspecified; I25.10 Atherosclerotic heart disease of native coronary artery without angina pectoris; G89.29 Other chronic pain; K57.30 Diverticulosis of large intestine without perforation or abscess without bleeding; M62.838 Other muscle spasm; R74.01 Elevation of levels of liver transaminase levels; E66.9 Obesity, unspecified; I16.0 Hypertensive urgency; E78.5 Hyperlipidemia, unspecified; N18.30 Chronic kidney disease, stage 3 unspecified; E11.22 Type 2 diabetes mellitus with diabetic chronic kidney disease; E11.40 Type 2 diabetes mellitus with diabetic neuropathy, unspecified; F41.9 Anxiety disorder, unspecified; J45.909 Unspecified asthma, uncomplicated; Z88.5 Allergy status to narcotic agent; Z88.8 Allergy status to other drugs, medicaments and biological substances; Z91.041 Radiographic dye allergy status; Z79.899 Other long term (current) drug therapy; Z79.3 Long term (current) use of hormonal contraceptives; Z79.2 Long term (current) use of antibiotics; Z90.49 Acquired absence of other specified parts of digestive tract; Z90.710 Acquired absence of both cervix and uterus; Z68.38 Body mass index [BMI] 38.0-38.9, adult; Z98.61 Coronary angioplasty status
CPT/HCPCS: 36415; 71045; 72131; 72148; 74176; 76705; 80048; 80053; 80076; 80307; 80320; 81001; 82140; 82962; 83036; 83605; 83735; 83880; 84443; 85025; 85610; 85730; 87426; 87804; 93005; 93306; 93970; 96374; 96375; 97110; 97116; 97163; 97530; 99291; G0378; J0131; J1815; J2405; J2470; J3490

== ENCOUNTER 2024-07-01 10:53 | Emergency (ER) | payer OTHER ==
[~2024-07-01] VITALS: Ht 152.4 cm; Wt 91.0 kg
[~2024-07-01 10:53] MED LIST changes: +LOSA-533 PO
--- NOTE | 2024-07-01 11:06 | ED.PDOC ---
Musculoskeletal HPI Comments 88 year old female BERE presents to the ED with chief complaint of bilateral leg swelling. EMS reports that the patient had been seen in [facility] recently for a fall on both of her legs and was discharged back to [facility]. EMS relays that the patient is now experiencing bilateral leg swelling and pain for the past 2 days, being sent to the ED to rule out DVT in both legs. Patient reports having associated headache, dizziness, and SOB. EMS notes patient is currently on Plavix. Patient denies any nausea, vomiting, chest pain, numbness, weakness or tingling of extremities. Time Seen by MD: 11:01 Primary Care Provider: UNKNOWN Reviewed Notes: Nurses Notes, Medications, Allergies Allergies: Coded Allergies: Iodine (Verified Allergy, Severe, 07/01/24) Ketorolac (Verified Allergy, Severe, 12/17/11) NSAIDs (Verified Allergy, Severe, 07/01/24) Promethazine (Verified Allergy, Severe, 07/01/24) Tromethamine (Verified Allergy, Severe, 12/17/11) Fentanyl (Verified Allergy, Unknown, 04/14/24) Latex (Verified Allergy, Unknown, 04/16/24) Morphine (Verified Allergy, Unknown, 04/16/24) Uncoded Allergies: CONTRAST (Allergy, Severe, 04/14/24) Home Meds Reported Medications Losartan Potassium (Losartan Potassium) 25 Mg Tab, 25 MG PO DAILY for 30 Days, MG 04/19/24 Terazosin Hcl (Terazosin Hcl) 5 Mg Cap, 5 MG PO BID for 30 Days, MG 07/09/16 Isosorbide Mononitrate (Isosorbide Mononitrate ER) 60 Mg Tab, 60 MG PO DAILY, TAB 07/09/16 Furosemide (Furosemide) 40 Mg Tab, 1 TAB PO DAILY, #30 TAB 5 Refills 07/09/16 Clopidogrel Bisulfate (CLOPIDOGREL) 75 Mg Tab, 1 TAB PO DAILY, #90 TAB 1 Refill 07/09/16 Clonidine Hydrochloride (Clonidine Hcl) 0.3 Mg Tab, 0.3 MG PO TID, TAB 07/09/16 Levothyroxine Sodium (SYNTHROID TABLET) 100 Mcg Tb, 112 MCG PO DAILY 07/09/16 Hydralazine Hcl (Hydralazine Hcl) 100 Mg Tab, 1 TAB PO TID, #90 TAB 5 Refills 07/09/16 Atorvastatin Calcium (Lipitor) 20 Mg Tab, 1 TAB PO DAILY, #90 TAB 1 Refill 07/09/16 Metoprolol Tartrate (Metoprolol Tartrate) 50 Mg Tab, 75 MG PO BID for 30 Days, MG 07/09/16 Nitroglycerin (Nitroglycerin) 0.4 Mg Sl 12/17/11 Oxybutynin Chloride (Ditropan Xl) 10 Mg Tab 12/17/11 Dicyclomine Hcl (Dicyclomine Hcl) 20 Mg Tab, 20 MG PRN 12/17/11 Methyldopa (Methyldopa) 250 Mg Tab, 250 MG BID 12/17/11 Etodolac (Etodolac) 200 Mg Cap, 200 MG TID 12/17/11 Atorvastatin Calcium (ATORVASTATIN CALCIUM) 20 Mg Tab, 20 DAILY 12/17/11 Atenolol (Atenolol) 50 Mg Tab, 50 MG DAILY 12/17/11 Furosemide (Lasix) 40 Mg Tab, 40 MG DAILY 12/17/11 Clopidogrel Bisulfate (CLOPIDOGREL) 75 Mg Tab, 75 MG DAILY 12/17/11 Levothyroxine Sodium (Levothyroxine Sodium) 100 Mcg Tab, 100 MCG DAILY 12/17/11 Ciprofloxacin Hcl (Cipro) 500 Mg Tab, 500 MG BID 12/17/11 Chlorthalidone (Chlorthalidone) 25 Mg Tab, 25 MG DAILY 12/17/11 Terazosin Hcl (Terazosin Hcl) 5 Mg Cap, 5 MG BID 12/17/11 Clonidine Hydrochloride (Clonidine Hcl) 0.2 Mg Tab, 0.2 MG TID 12/17/11 Lisinopril (Lisinopril) 40 Mg Tab, 40 MG BID 12/17/11 Omeprazole ([facility] Omeprazole) 20 Mg Tab, 20 MG ACHS 12/17/11 Information Source: Patient Mode of Arrival: Ambulatory Past Medical History PAST MEDICAL HISTORY: Anxiety, Asthma, CAD, CHF, DM, GERD, High Lipids, HTN Surgical History: Cholecystectomy, Hysterectomy, PTCA NUTRITION COORDINATOR History: No Pertinent NUTRITION COORDINATOR History Family History Family History: Unobtainable Social History Smoker: Non-Smoker Alcohol: Denies ETOH Use Drugs: Denies Drug Use Lives In: Home Constitutional: denies: chills, diaphoresis, fatigue, fever, malaise, sweats, weakness, others EENTM: denies: blurred vision, double vision, ear bleeding, ear discharge, ear drainage, ear pain, ear ringing, eye pain, eye redness, hearing loss, mouth pain, mouth swelling, nasal discharge, nose bleeding, nose congestion, nose pain, photophobia, tearing, throat pain, throat swelling, voice changes, others Respiratory: denies: cough, hemoptysis, orthopnea, SOB at rest, shortness of breath, SOB with excertion, stridor, wheezing, others Cardiovascular: denies: chest pain, dizzy spells, diaphoresis, Dyspnea on exertion, edema, irregular heart beat, left arm pain, lightheadedness, palpitations, PND, syncope, others Gastrointestinal: denies: abdomen distended, abdominal pain, blood streaked bowels, constipated, diarrhea, dysphagia, difficulty swallowing, hematemesis, melena, nausea, poor appetite, poor fluid intake, rectal bleeding, rectal pain, vomiting, others Genitourinary: denies: abnormal vagina bleeding, burning, dyspareunia, dysuria, flank pain, frequency, hematuria, incontinence, pain, , vagina discharge, urgency, others Neurological: denies: dizziness, fainting, headache, left sided numbness, left sided weakness, numbness, paresthesia, pre-existing deficit, right sided n umbness, right sided weakness, seizure, speech problems, tingling, tremors, weakness, others Musculoskeletal: reports: others (Bilateral leg swelling and pain); denies: back pain, gout, joint pain, joint swelling, muscle pain, muscle stiffness, neck pain Integumetry: denies: bruises, change in color, change in hair/nails, dryness, laceration, lesions, lumps, rash, wounds, others Allergic/Immunocompromised: denies: Difficulty Healing, Frequent Infections, Hives, Itching, others Hematologic/Lymphatic: denies: anemia, blood clots, easy bleeding, easy bruising, swollen glands, others Endocrine: denies: excessive hunger, excessive sweating, excessive thirst, excessive urination, flushing, intolerance to cold, intolerance to heat, unexplained weight gain, unexplained weight loss, others Psychiatric: denies: anxiety, bipolar disorder, depression, hopeless, panic dis order, schizophrenia, sleepless, suicidal, others All Other Systems: Reviewed and Negative Physical Exam General Appearance: Moderate Distress, Normal HEENT: Normal ENT Inspection, Pharynx Normal, TMs Normal Neck: Full Range of Motion, Non-Tender, Normal, Normal Inspection Respiratory: Chest Non-Tender, Lungs Clear, No Accessory Muscle Use, No Respiratory Distress, Normal Breath Sounds Cardiovascular: No Edema, No JVD, No Murmur, No Gallop, Normal Peripheral Pulses, Regular Rate/Rhythm Breast Exam: Deferred Gastrointestinal: No Organomegaly, Non Tender, No Pulsatile Mass, Normal Bowel Sounds, Soft Genitalia: Deferred Pelvic: Deferred Rectal: Deferred Extremities: No calf tenderness, Normal capillary refill, Normal inspection, Normal range of motion, Non-tender, Pedal edema, Swelling (Bilateral lower extremity) Musculoskeletal : Apperance: Normal Neurologic: Alert, 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 Was a procedure done?: No Differential Diagnosis EXT Differential Diagnosis: Cellulitis, Deep Vein Thrombosis X-Ray, Labs, Meds, VS Vital Signs Date Time Temp Pulse Resp B/P (MAP) Pulse Ox O2 Delivery O2 Flow Rate FiO2 07/01/24 11:12 98.2 103 16 126/73 (90) 95 98.2 Lab Test 07/01/24 11:35 Range/Units White Blood Count 7.4 4.4-10.8 10^3/uL Red Blood Count 3.46 L 4.0-5.20 10^6/uL Hemoglobin 10.6 L 12.2-16.2 g/dL Hematocrit 31.6 L 36.0-46.0 % Mean Corpuscular Volume 91.3 80.0-100.0 fL Mean Corpuscular Hemoglobin 30.7 28.0-32.0 pg Mean Corpuscular Hemoglobin Concent 33.7 32.0-36.0 g/dL Red Cell Distribution Width 17.6 H 11.8-14.3 % Platelet Count 219 140-450 10^3/uL Mean Platelet Volume 7.9 6.9-10.8 fL Neutrophils (%) (Auto) 35.7 L 37.0-80.0 % Lymphocytes (%) (Auto) 49.9 10.0-50.0 % Monocytes (%) (Auto) 10.5 0.0-12.0 % Eosinophils (%) (Auto) 2.8 0.0-7.0 % Basophils (%) (Auto) 1.1 0.0-2.0 % Neutrophils # (Auto) 2.6 1.6-8.6 10 ^3/uL Lymphocytes # (Auto) 3.7 0.4-5.4 10 ^3/uL Monocytes # (Auto) 0.8 0-1.3 10 ^3/uL Eosinophils # (Auto) 0.2 0-0.8 10 ^3/uL Basophils # (Auto) 0.1 0-0.2 10 ^3/uL Nucleated Red Blood Cells 0.0 % Sodium Level 138 136-145 mmol/L Potassium Level 4.2 3.5-5.1 mmol/L Chloride Level 101 98-107 mmol/L Carbon Dioxide Level 26 20-31 mmol/L Anion Gap 11 5-15 Blood Urea Nitrogen 10 9-23 mg/dL Creatinine 1.41 H 0.550-1.02 mg/dL Glomerular Filtration Rate Calc 36 >90 mL/min BUN/Creatinine Ratio 7.1 L 10.0-20.0 Serum Glucose 147 H 74-106 mg/dL Calcium Level 9.5 8.7-10.4 mg/dL Patient alert. Vitals stable. Came in because of swelling of bilateral lower extremity. Answering questions. Recently discharged from [facility]. On examination she does have pitting edema of lower extremity. Possible CHF. Reviewed her history. Continue monitoring. DVT study within normal limits. Blood sugar slightly elevated. Patient insists on going home. Explained to the patient around 250 p.m. in lobby that she will be going home. She was told to follow up with her primary care physician. Was told to come back if there is any problem. Bilateral DVT US: Findings: RIGHT SIDE: The common femoral vein demonstrates appropriate compressibility and waveform variability. There is compressibility/patency of the great saphenous vein at the proximal thigh. The femoral vein demonstrates appropriate compressibility and waveform variability. The deep femoral vein demonstrates appropriate compressibility and waveform variability. The popliteal vein demonstrates appropriate compressibility and waveform variability. There is color flow at the tibioperoneal trunk and in the posterior tibial vein. LEFT SIDE: The common femoral vein demonstrates appropriate compressibility and waveform variability. There is compressibility/patency of the great saphenous vein at the proximal thigh. The femoral vein demonstrates appropriate compressibility and waveform variability. The deep femoral vein demonstrates appropriate compressibility and waveform variability. The popliteal vein demonstrates appropriate compressibility and waveform variability. There is color flow at the tibioperoneal trunk and in the posterior tibial vein. Impression: 1. No right or left femoropopliteal venous thrombosis. Images Reviewed?: Images reviewed and evaluated by me Time of 1ST Reevaluation: 12:01 Reevaluation 1ST: Unchanged Patient Education/Counseling: Diagnosis, Treatment, Prognosis, Need For Follow Up Family Education/Counseling: No Family Present Additional Information The following tests were ordered, and results were reviewed by me: CBC, BMP, UA, Bilateral Lower DVT Additional Information was gathered from interviewing the following independent historians: EMS I reviewed and agreed with the following test results read by other providers: Bilateral lower DVT I discussed treatment and results with medical personnel and: patient Comprehensive systems review obtained and negative except for what is stated in the HPI. Departure 1 Departure Time of Disposition: 11:17 Impression: Primary Impression: CHF (congestive heart failure) Qualified Codes: I50.43 - Acute on chronic combined systolic (congestive) and diastolic (congestive) heart failure Disposition: 01 HOME / SELF CARE / HOMELESS Condition: Good Discharged With: Self Comments Spoke to and examined patient at 1101, discussing treatment plan at this time. Critical Care Note Critical Care Time?: No Stability Stability form required: No Heart Score Heart Score: Heart Score Response (Comments) Value History N/A 0 EKG N/A 0 Age N/A 0 Risk Factors N/A 0 Troponin N/A 0 Total 0 I personally scribed for RITA SOLORIO MD ([email or web address]) on 07/01/24 at 11:06. E lectronically submitted by Kyle Mckeon ([email or web address]). I personally scribed for RITA SOLORIO MD ([email or web address]) on 07/01/24 at 11:07. Electronically submitted by Kyle Mckeon ([email or web address]). I personally scribed for RITA SOLORIO MD ([email or web address]) on 07/01/24 at 12:51. Electronically submitted by Kyle Mckeon ([email or web address]). RITA SOLORIO MD July 01, 2024 11:06
[2024-07-01 11:12] VITALS: BP 126/73; PULSE 103; RESP 16; TEMP 98.2; O2SAT 95
[2024-07-01 11:46] LABS: Basophils # (auto) 0.1 10 ^3/uL (0-0.2); Basophils % (auto) 1.1 % (0.0-2.0); Eosinophils # (auto) 0.2 10 ^3/uL (0-0.8); Eosinophils % (auto) 2.8 % (0.0-7.0); Hematocrit 31.6 % (36.0-46.0); Hemoglobin 10.6 g/dL (12.2-16.2); Lymphocytes # (auto) 3.7 10 ^3/uL (0.4-5.4); Lymphocytes % (auto) 49.9 % (10.0-50.0); Mean Corpuscular Hemoglobin 30.7 pg (28.0-32.0); Mean Corpuscular Hgb Conc. 33.7 g/dL (32.0-36.0); Mean Corpuscular Volume 91.3 fL (80.0-100.0); Monocytes # (auto) 0.8 10 ^3/uL (0-1.3); Monocytes % (auto) 10.5 % (0.0-12.0); Neutrophils # (auto) 2.6 10 ^3/uL (1.6-8.6); Neutrophils % (auto) 35.7 % (37.0-80.0); Platelet Count (auto) 219 10^3/uL (140-450); Red Blood Cells 3.46 10^6/uL (4.0-5.20); Red Cell Distribution Width 17.6 % (11.8-14.3); White Blood Cell 7.4 10^3/uL (4.4-10.8)
[2024-07-01 11:52] LABS: Chloride 101 mmol/L (98-107); Potassium 4.2 mmol/L (3.5-5.1); Sodium 138 mmol/L (136-145)
[2024-07-01 11:53] LABS: Anion Gap 11 (5-15); Carbon Dioxide 26 mmol/L (20-31)
[2024-07-01 11:54] LABS: Calcium 9.5 mg/dL (8.7-10.4)
[2024-07-01 11:58] LABS: BUN/Creatinine Ratio 7.1 (10.0-20.0); Blood Urea Nitrogen 10 mg/dL (9-23)
[2024-07-01 11:59] LABS: Glucose 147 mg/dL (74-106)
--- NOTE | 2024-07-01 12:48 | DVH ---
EXAM: US BILAT LOWER DVT Clinical History: dvt Comparison: US BILAT LOWER DVT on DOS: 04/14/24, US BILAT LOWER DVT on DOS: 03/11/24 Technique: Duplex Doppler evaluation of the deep venous systems of both lower extremities from the co mmon femoral veins to the popliteal veins including color Doppler and spectral/pulsed waveform analys is was performed. Findings: RIGHT SIDE: The common femoral vein demonstrates appropriate compressibility and waveform variability. There is compressibility/patency of the great saphenous vein at the proximal thigh. The femoral vein demonstrates appropriate compressibility and waveform variability. The deep femoral vein demonstrates appropriate compressibility and waveform variability. The popliteal vein demonstrates appropriate compressibility and waveform variability. There is color flow at the tibioperoneal trunk and in the posterior tibial vein. LEFT SIDE: The common femoral vein demonstrates appropriate compressibility and waveform variability. There is compressibility/patency of the great saphenous vein at the proximal thigh. The femoral vein demonstrates appropriate compressibility and waveform variability. The deep femoral vein demonstrates appropriate compressibility and waveform variability. The popliteal vein demonstrates appropriate compressibility and waveform variability. There is color flow at the tibioperoneal trunk and in the posterior tibial vein. Impression: 1. No right or left femoropopliteal venous thrombosis.
[2024-07-01 18:21] LABS: Urine Bacteria FEW /hpf (None Seen); Urine Blood Negative /uL (Negative); Urine Clarity Turbid (Clear); Urine Color Yellow (Yellow); Urine Hyaline Cast MOD /lpf (0 - 2); Urine Mucus FEW (None Seen); Urine Protein, UAD TRACE (Negative); Urine Specific Gravity 1.015 (1.001-1.035); Urine Squamous Epithelial Cell MOD /hpf (<5); Urine Urobilinogen Normal (Negative); Urine WBC 20 /HPF (0-5); Urine pH 5.5 (5.0-9.0)
== END 2024-07-01 17:36 | disposition home or self-care (01) ==
LOC: EDBD 10:53 → ER 10:53
DX: I11.0 Hypertensive heart disease with heart failure (principal); I50.9 Heart failure, unspecified; I25.10 Atherosclerotic heart disease of native coronary artery without angina pectoris; E11.9 Type 2 diabetes mellitus without complications; J45.909 Unspecified asthma, uncomplicated; F41.9 Anxiety disorder, unspecified; Z90.49 Acquired absence of other specified parts of digestive tract; Z90.710 Acquired absence of both cervix and uterus; Z88.5 Allergy status to narcotic agent; Z79.899 Other long term (current) drug therapy; Z91.040 Latex allergy status; Z88.1 Allergy status to other antibiotic agents
CPT/HCPCS: 36415; 80048; 81001; 85025; 93970

== ENCOUNTER 2024-07-08 06:40 | Emergency (ER) | payer OTHER ==
[~2024-07-08] VITALS: Ht 160 cm; Wt 100.0 kg
--- NOTE | 2024-07-08 07:50 | ED.PDOC ---
Musculoskeletal HPI Comments 88 year old female BERE presents to the ED with chief complaint of bilateral leg swelling. EMS reports that the patient is coming from [facility] and has been experiencing bilateral leg swelling and pain for the past 2 days. EMS relays that the patient was seen in the ED last week for the same complaint. Patient states her left leg is worse in swelling. Patient denies any chest pain, SOB, dizziness, fever, chills, or open wounds. Chief Complaint: Lower Extremity Time Seen by MD: 07:48 Primary Care Provider: UNKNOWN Reviewed Notes: Nurses Notes, Hat Binder Notes, Medications, Allergies Allergies: Coded Allergies: Iodine (Verified Allergy, Severe, 07/01/24) Ketorolac (Verified Allergy, Severe, 12/17/11) NSAIDs (Verified Allergy, Severe, 07/01/24) Promethazine (Verified Allergy, Severe, 07/01/24) Tromethamine (Verified Allergy, Severe, 12/17/11) Fentanyl (Verified Allergy, Unknown, 04/14/24) Latex (Verified Allergy, Unknown, 04/16/24) Morphine (Verified Allergy, Unknown, 04/16/24) Uncoded Allergies: CONTRAST (Allergy, Severe, 04/14/24) Home Meds Reported Medications Losartan Potassium (Losartan Potassium) 25 Mg Tab, 25 MG PO DAILY for 30 Days, MG 04/19/24 Terazosin Hcl (Terazosin Hcl) 5 Mg Cap, 5 MG PO BID for 30 Days, MG 07/09/16 Isosorbide Mononitrate (Isosorbide Mononitrate ER) 60 Mg Tab, 60 MG PO DAILY, TAB 07/09/16 Furosemide (Furosemide) 40 Mg Tab, 1 TAB PO DAILY, #30 TAB 5 Refills 07/09/16 Clopidogrel Bisulfate (CLOPIDOGREL) 75 Mg Tab, 1 TAB PO DAILY, #90 TAB 1 Refill 07/09/16 Clonidine Hydrochloride (Clonidine Hcl) 0.3 Mg Tab, 0.3 MG PO TID, TAB 07/09/16 Levothyroxine Sodium (SYNTHROID TABLET) 100 Mcg Tb, 112 MCG PO DAILY 07/09/16 Hydralazine Hcl (Hydralazine Hcl) 100 Mg Tab, 1 TAB PO TID, #90 TAB 5 Refills 07/09/16 Atorvastatin Calcium (Lipitor) 20 Mg Tab, 1 TAB PO DAILY, #90 TAB 1 Refill 07/09/16 Metoprolol Tartrate (Metoprolol Tartrate) 50 Mg Tab, 75 MG PO BID for 30 Days, MG 07/09/16 Nitroglycerin (Nitroglycerin) 0.4 Mg Sl 12/17/11 Oxybutynin Chloride (Ditropan Xl) 10 Mg Tab 12/17/11 Dicyclomine Hcl (Dicyclomine Hcl) 20 Mg Tab, 20 MG PRN 12/17/11 Methyldopa (Methyldopa) 250 Mg Tab, 250 MG BID 12/17/11 Etodolac (Etodolac) 200 Mg Cap, 200 MG TID 12/17/11 Atorvastatin Calcium (ATORVASTATIN CALCIUM) 20 Mg Tab, 20 DAILY 12/17/11 Atenolol (Atenolol) 50 Mg Tab, 50 MG DAILY 12/17/11 Furosemide (Lasix) 40 Mg Tab, 40 MG DAILY 12/17/11 Clopidogrel Bisulfate (CLOPIDOGREL) 75 Mg Tab, 75 MG DAILY 12/17/11 Levothyroxine Sodium (Levothyroxine Sodium) 100 Mcg Tab, 100 MCG DAILY 12/17/11 Ciprofloxacin Hcl (Cipro) 500 Mg Tab, 500 MG BID 12/17/11 Chlorthalidone (Chlorthalidone) 25 Mg Tab, 25 MG DAILY 12/17/11 Terazosin Hcl (Terazosin Hcl) 5 Mg Cap, 5 MG BID 12/17/11 Clonidine Hydrochloride (Clonidine Hcl) 0.2 Mg Tab, 0.2 MG TID 12/17/11 Lisinopril (Lisinopril) 40 Mg Tab, 40 MG BID 12/17/11 Omeprazole ([facility] Omeprazole) 20 Mg Tab, 20 MG ACHS 12/17/11 Information Source: Patient, Emergency Med Personnel Mode of Arrival: EMS Location: Bilateral Extremity Location: Leg Timing: Days Prehospital treatment: None Severity: Moderate Able to Move Extremity: Yes Bear Weight: Fully Pain: Moderate Mechanism: Spontaneous Circumstances: Spontaneous Onset of Symptoms: Spontaneous Symptoms: Swelling, Pain, Erythema DVT Risk Factors: CHF History of: Gout Associated signs and symptoms: Swelling, Leg pain Past Medical History PAST MEDICAL HISTORY: Anxiety, Asthma, CAD, CHF, CKF, DM, GERD, Gout, High Lipids, HTN Past Medical History (Other): Diverticulitis Surgical History: Cholecystectomy, Hysterectomy, PTCA [employer] 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: No Pertinent TOU[employer] 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 Family History Family History: Reviewed,noncontributory to illness, Unobtainable Social History Smoker: Non-Smoker Alcohol: Denies ETOH Use Drugs: Denies Drug Use Lives In: Home Constitutional: denies: chills, diaphoresis, fatigue, fever, malaise, sweats, weakness, others EENTM: denies: blurred vision, double vision, ear bleeding, ear discharge, ear drainage, ear pain, ear ringing, eye pain, eye redness, hearing loss, mouth pain, mouth swelling, nasal discharge, nose bleeding, nose congestion, nose pain, photophobia, tearing, throat pain, throat swelling, voice changes, others Respiratory: denies: cough, hemoptysis, orthopnea, SOB at rest, shortness of breath, SOB with excertion, stridor, wheezing, others Cardiovascular: reports: edema; denies: chest pain, dizzy spells, diaphoresis, Dyspnea on exertion, irregular heart beat, left arm pain, lightheadedness, palpitations, PND, syncope, others Gastrointestinal: denies: abdomen distended, abdominal pain, blood streaked bowels, constipated, diarrhea, dysphagia, difficulty swallowing, hematemesis, melena, nausea, poor appetite, poor fluid intake, rectal bleeding, rectal pain, vomiting, others Genitourinary: denies: abnormal vagina bleeding, burning, dyspareunia, dysuria, flank pain, frequency, hematuria, incontinence, pain, , vagina discharge, urgency, others Neurological: denies: dizziness, fainting, headache, left sided numbness, left sided weakness, numbness, paresthesia, pre-existing deficit, right sided numbness, right sided weakness, seizure, speech problems, tingling, tremors, weakness, others Musculoskeletal: reports: others (Bilat leg pain); denies: back pain, gout, joint pain, joint swelling, muscle pain, muscle stiffness, neck pain Integumetry: denies: bruises, change in color, change in hair/nails, dryness, laceration, lesions, lumps, rash, wounds, others Allergic/Immunocompromised: denies: Difficulty Healing, Frequent Infections, Hives, Itching, others Hematologic/Lymphatic: denies: anemia, blood clots, easy bleeding, easy br uising, swollen glands, others Endocrine: denies: excessive hunger, excessive sweating, excessive thirst, excessive urination, flushing, intolerance to cold, intolerance to heat, unexplained weight gain, unexplained weight loss, others Psychiatric: denies: anxiety, bipolar disorder, depression, hopeless, panic disorder, schizophrenia, sleepless, suicidal, others All Other Systems: Reviewed and Negative Physical Exam General Appearance: Moderate Distress, Obese HEENT: Normal ENT Inspection, PERRL/EOMI, Pharynx Normal, TMs Normal, Other (Facial asymmetry) Neck: Full Range of Motion, Non-Tender, Normal, Normal Inspection Respiratory: Chest Non-Tender, Lungs Clear, No Accessory Muscle Use, No Respiratory Distress, Normal Breath Sounds Cardiovascular: No Edema, No JVD, No Murmur, No Gallop, Normal Peripheral Pulses, Regular Rate/Rhythm Breast Exam: Deferred Gastrointestinal: No Organomegaly, Non Tender, No Pulsatile Mass, Normal Bowel Sounds, Soft, Other (Morbid obesity) Genitalia: Deferred Pelvic: Deferred Rectal: Deferred Extremities: Decreased range of motion, Inflammation, Leg edema, No calf tenderness, Pedal edema, Swelling, Tender Musculoskeletal : Apperance: Normal Neurologic: Alert, spray blender II-XII nml as Tested, No Motor Deficits, Normal Affect, Normal Mood, No Sensory Deficits Cerebellar Function: NOT DONE Reflexes: NOT DONE Skin: Dry, Normal Color, Warm Peripheral Pulses: 1+ carotid (R), 1+ carotid (L) Lymphatic: No Adenopathy Was a procedure done? Was a procedure done?: No Differential Diagnosis EXT Differential Diagnosis: Cellulitis, CHF, Deep Vein Thrombosis X-Ray, Labs, Meds, VS Vital Signs Date Time Temp Pulse Resp B/P (MAP) Pulse Ox O2 Delivery O2 Flow Rate FiO2 07/08/24 16:52 108 18 146/76 07/08/24 16:00 98.7 111 20 154/85 (108) 97 98.7 07/08/24 15:30 111 20 154/85 07/08/24 15:00 114 20 158/84 07/08/24 15:00 158/81 07/08/24 08:30 86 16 97 Nasal Cannula* 2 28 07/08/24 08:11 98.8 88 20 117/ 97 98.8 07/08/24 06:47 98.5 85 18 160/80 (106) 94 98.5 07/08/24 06:40 81 Lab Test 07/08/24 12:04 Range/Units White Blood Count 9.7 4.4-10.8 10^3/uL Red Blood Count 3.39 L 4.0-5.20 10^6/uL Hemoglobin 10.3 L 12.2-16.2 g/dL Hematocrit 31.2 L 36.0-46.0 % Mean Corpuscular Volume 91.8 80.0-100.0 fL Mean Corpuscular Hemoglobin 30.3 28.0-32.0 pg Mean Corpuscular Hemoglobin Concent 33.0 32.0-36.0 g/dL Red Cell Distribution Width 17.7 H 11.8-14.3 % Platelet Count 227 140-450 10^3/uL Mean Platelet Volume 7.4 6.9-10.8 fL Neutrophils (%) (Auto) 46.0 37.0-80.0 % Lymphocytes (%) (Auto) 43.5 10.0-50.0 % Monocytes (%) (Auto) 8.3 0.0-12.0 % Eosinophils (%) (Auto) 1.9 0.0-7.0 % Basophils (%) (Auto) 0.3 0.0-2.0 % Neutrophils # (Auto) 4.4 1.6-8.6 10 ^3/uL Lymphocytes # (Auto) 4.2 0.4-5.4 10 ^3/uL Monocytes # (Auto) 0.8 0-1.3 10 ^3/uL Eosinophils # (Auto) 0.2 0-0.8 10 ^3/uL Basophils # (Auto) 0 0-0.2 10 ^3/uL Nucleated Red Blood Cells 0.1 % Prothrombin Time 10.9 9.3-11.8 sec Prothrombin Time INR 1.03 0.9-1.15 Activated Partial Thromboplast Time 29.6 24.5-34.5 SEC D-Dimer, Quantitative 3.33 H 0.0-0.49 mg/L FEU Sodium Level 137 136-145 mmol/L Potassium Level 4.8 3.5-5.1 mmol/L Chloride Level 100 98-107 mmol/L Carbon Dioxide Level 30 20-31 mmol/L Anion Gap 7 5-15 Blood Urea Nitrogen 19 9-23 mg/dL Creatinine 1.70 H 0.550-1.02 mg/dL Glomerular Filtration Rate Calc 29 >90 mL/min BUN/Creatinine Ratio 11.2 10.0-20.0 Serum Glucose 123 H 74-106 mg/dL Calcium Level 10.0 8.7-10.4 mg/dL Magnesium Level 1.8 1.6-2.6 mg/dL Total Bilirubin 0.4 0.2-1.0 mg/dL Aspartate Amino Transferase (AST) 21 13-40 U/L Alanine Aminotransferase (ALT) 16 7-40 U/L Alkaline Phosphatase 108 46-116 U/L Troponin I High Sensitivity 4 </=34 ng/L B-Type Natriuretic Peptide 154.66 0-100 pg/mL Total Protein 7.6 5.7-8.2 g/dL Albumin 4.0 3.2-4.8 g/dL Thyroid Stimulating Hormone (TSH) 8.17 H 0.55-4.78 uIU/mL Current Medications Medications (Trade) Dose Ordered Sig/Kandace Route Start Time Stop Time Status Last Admin Furosemide (Lasix Injection) 40 mg ONCE ONCE IV 07/08/24 12:00 07/08/24 12:01 DC 07/08/24 15:00 Spironolactone (Aldactone) 50 mg ONCE ONCE PO 07/08/24 12:00 07/08/24 12:01 DC 07/08/24 15:00 Morphine Sulfate 2 mg ONCE ONCE IV 07/08/24 12:15 07/08/24 12:16 DC 07/08/24 15:00 Ondansetron HCl (Zofran) 4 mg ONCE ONCE IV 07/08/24 12:15 07/08/24 12:16 DC 07/08/24 15:00 Morphine Sulfate 2 mg ONCE ONCE IV 07/08/24 16:30 07/08/24 16:31 DC 07/08/24 16:52 X-Ray, Labs, Meds, VS Comment Course in the emergency department patient came in complaining of severe back pain swollen full red inflamed and burning patient is taking Plavix her blood pressure is 160/80 The EKG shows normal sinus rhythm at 81 The chest x-ray shows multifocal airway disease CBC 9700 with 46% neutrophils H&H 10 and 31 INR 1.03 D-dimer very elevated 3.33 CP MP GFR at 29 with a blood sugar at 123 Magnesium 1.8 Trauma four BNP and 54.6 TSH 8.17 Ultrasound done last week and are within normal limit Waiting with a V/Q scan Time of 1ST Reevaluation: 08:48 Reevaluation 1ST: Unchanged Time of 2ND Reevaluation: 17:40 Reevaluation 2ND: Unchanged Patient Education/Counseling: Diagnosis, Treatment, Prognosis Family Education/Counseling: Diagnosis, Treatment, Prognosis, No Family Present Departure 1 Departure Time of Disposition: 17:43 Impression: Primary Impression: Generalized weakness Additional Impressions: Motorized mobility scooter colliding with stationary object,initial encounter History of myocardial infarction Hypothyroidism Qualified Codes: E03.9 - Hypothyroidism, unspecified Palpitation Paresthesia of both lower extremities Disposition: 30 STILL A PATIENT Condition: Serious Critical Care Note Critical Care Time?: No Stability Stability form required: Yes Heart Score Heart Score: Heart Score Response (Comments) Value History N/A 0 EKG Normal 0 Age >65 2 Risk Factors >3 or Hx ASHD 2 Troponin Normal limit 0 Total 4 I personally scribed for JOSÉ MIGUEL DUDLEY MD ([email or web address]) on 07/08/24 at 07:50. Electronically submitted by Kyle Mckeon ([email or web address]). JOSÉ MIGUEL DUDLEY MD July 08, 2024 07:50
[2024-07-08 08:30] VITALS: PULSE 86; RESP 16; O2SAT 97
--- NOTE | 2024-07-08 08:57 | ECG ---
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
--- NOTE | 2024-07-08 12:16 | DVH ---
CHEST RADIOGRAPH Indication: chf Technique: Single frontal view of the chest was obtained COMPARISON: XY CHEST XRAY 1 VIEW on DOS: 04/14/24, XY CHEST PORTABLE on DOS: 03/11/24 FINDINGS: Lines and Tubes: None Lungs: Multifocal airspace disease Pleura: No effusion. No pneumothorax. Cardiomediastinal contours: Cardiomegaly Bones: Unremarkable IMPRESSION: Multifocal airspace disease
[2024-07-08 12:19] LABS: Basophils # (auto) 0 10 ^3/uL (0-0.2); Basophils % (auto) 0.3 % (0.0-2.0); Eosinophils # (auto) 0.2 10 ^3/uL (0-0.8); Eosinophils % (auto) 1.9 % (0.0-7.0); Hematocrit 31.2 % (36.0-46.0); Hemoglobin 10.3 g/dL (12.2-16.2); Lymphocytes # (auto) 4.2 10 ^3/uL (0.4-5.4); Lymphocytes % (auto) 43.5 % (10.0-50.0); Mean Corpuscular Hemoglobin 30.3 pg (28.0-32.0); Mean Corpuscular Volume 91.8 fL (80.0-100.0); Monocytes # (auto) 0.8 10 ^3/uL (0-1.3); Monocytes % (auto) 8.3 % (0.0-12.0); Neutrophils # (auto) 4.4 10 ^3/uL (1.6-8.6); Nucleated Red Blood Cells % 0.1 %; Platelet Count (auto) 227 10^3/uL (140-450); Red Blood Cells 3.39 10^6/uL (4.0-5.20); Red Cell Distribution Width 17.7 % (11.8-14.3); White Blood Cell 9.7 10^3/uL (4.4-10.8)
[2024-07-08 12:37] LABS: Alanine Aminotransferase 16 U/L (7-40); Alkaline Phosphatase 108 U/L (46-116); Anion Gap 7 (5-15); Aspartate Aminotransferase 21 U/L (13-40); BUN/Creatinine Ratio 11.2 (10.0-20.0); Blood Urea Nitrogen 19 mg/dL (9-23); Carbon Dioxide 30 mmol/L (20-31); Chloride 100 mmol/L (98-107); Glucose 123 mg/dL (74-106); Magnesium 1.8 mg/dL (1.6-2.6); Potassium 4.8 mmol/L (3.5-5.1); Sodium 137 mmol/L (136-145); Total Protein 7.6 g/dL (5.7-8.2)
[2024-07-08 12:38] LABS: Bilirubin, Total 0.4 mg/dL (0.2-1.0); INR 1.03 (0.9-1.15); Partial Thromboplastin Time 29.6 SEC (24.5-34.5); Prothrombin Time 10.9 sec (9.3-11.8)
[2024-07-08] MEDS: ONDANSETRON HCL 4 MG/2 ML VIAL IV ONE ×2 (15:00→18:51)
[2024-07-08] MEDS: SPIRONOLACTONE 25 MG TAB PO ONE (15:00)
[2024-07-08] MEDS: FUROSEMIDE 40 MG/4 ML VIAL IV ONE (15:00)
[2024-07-08] MEDS: MORPHINE SULFATE INJ 2 MG/ml SYRG IV ONE ×2 (15:00→16:52)
--- NOTE | 2024-07-08 18:37 | DVH ---
NUCLEAR MEDICINE VENTILATION/PERFUSION LUNG SCAN. INDICATION: PULMONARY EMBOLISM TECHNIQUE: Following intravenous demonstration of 6 millicuries of technetium 99m MAA, scintigrams were obtained in multiple projections of the lungs. FINDINGS: There is normal uptake of radionuclide on both the ventilation and perfusion portions of the examinat ion. No mismatched perfusion defects are demonstrated. Uptake is normally homogeneous. Patient refuse ventilation scan. IMPRESSION: 1. Low probability for PE.
[2024-07-08] MEDS: MORPHINE SULFATE 4 MG/ML SYR/VIAL IV ONE (18:52)
[2024-07-08 20:00] VITALS: PULSE 78; O2SAT 96
[2024-07-08 20:19] LABS: Urine Bacteria FEW /hpf (None Seen); Urine Blood Negative /uL (Negative); Urine Clarity Clear (Clear); Urine Color Colorless (Yellow); Urine Protein, UAD Negative (Negative); Urine Specific Gravity 1.006 (1.001-1.035); Urine Squamous Epithelial Cell FEW /hpf (<5); Urine Urobilinogen Normal (Negative); Urine WBC 1 /HPF (0-5)
--- NOTE | 2024-07-08 20:25 | DVH ---
Bilateral lower extremity venous duplex Clinical History: BLE swelling Comparison: US BILAT LOWER DVT on DOS: 07/01/24, US BILAT LOWER DVT on DOS: 04/14/24, US BILAT LOWER DV T on DOS: 03/11/24 Findings: Duplex Doppler evaluation of the deep venous systems of both lower extremities from the common femora l veins to the popliteal veins including color Doppler and spectral/pulsed waveform analysis was perf ormed. RIGHT SIDE: The common femoral vein demonstrates appropriate compressibility and waveform variability. There is compressibility/patency of the great saphenous vein at the proximal thigh. The femoral vein demonstrates appropriate compressibility and waveform variability. The deep femoral vein demonstrates appropriate compressibility and waveform variability. The popliteal vein demonstrates appropriate compressibility and waveform variability. There is normal compressibility at the tibioperoneal trunk. LEFT SIDE: The common femoral vein demonstrates appropriate compressibility and waveform variability. There is compressibility/patency of the great saphenous vein at the proximal thigh. The femoral vein demonstrates appropriate compressibility and waveform variability. The deep femoral vein demonstrates appropriate compressibility and waveform variability. The popliteal vein demonstrates appropriate compressibility and waveform variability. There is normal compressibility at the tibioperoneal trunk. IMPRESSION: 1. No right or left femoropopliteal venous thrombosis. 2. If clinical concern/symptoms persist or worsen, short-interval follow-up study is suggested. 3. END IMPRESSION:
[2024-07-08] MEDS ORDERED: GABA300T4 PO (20:39)
[2024-07-08] MEDS ORDERED: KETOROLAC TROMETH 30 MG/ML 1ML VIAL IV ONE (22:30)
[2024-07-08] MEDS: ACETAMINOPHEN 325 MG TAB PO ONE (22:35)
[2024-07-09 01:06] VITALS: BP 154/85; PULSE 88; RESP 20; TEMP 97.9; O2SAT 95
== END 2024-07-09 01:04 | disposition home or self-care (01) ==
LOC: EDBD 06:40 → ER 06:40 → EEVIPCON 06:40 → ER 07-09 01:04
DX: R53.1 Weakness (principal); I25.2 Old myocardial infarction; E03.9 Hypothyroidism, unspecified; R00.2 Palpitations; R20.2 Paresthesia of skin; I11.0 Hypertensive heart disease with heart failure; I50.9 Heart failure, unspecified; E11.9 Type 2 diabetes mellitus without complications; I25.10 Atherosclerotic heart disease of native coronary artery without angina pectoris; J45.909 Unspecified asthma, uncomplicated; Z79.02 Long term (current) use of antithrombotics/antiplatelets; Z79.899 Other long term (current) drug therapy; Z88.5 Allergy status to narcotic agent; Z88.6 Allergy status to analgesic agent; Z90.49 Acquired absence of other specified parts of digestive tract; Z90.710 Acquired absence of both cervix and uterus; V27.99XA Unspecified rider of other motorcycle injured in collision with fixed or stationary object in traffic accident, initial encounter; Y93.89 Activity, other specified; Y92.410 Unspecified street and highway as the place of occurrence of the external cause; Y99.8 Other external cause status
CPT/HCPCS: 36415; 71045; 78582; 80053; 81001; 83735; 83880; 84443; 84484; 85025; 85379; 85610; 85730; 93005; 93970; 96374; 96375; 96376; 99285; A9540; A9558; J1938; J2270; J2405

== ENCOUNTER 2024-07-31 14:40 | Inpatient (IN) | payer OTHER ==
[~2024-07-31] VITALS: Ht 167.6 cm; Wt 88.8 kg
[~2024-07-31 14:40] MED LIST changes: +AZIT-43 PO; +BUME1TAB3 PO; +BUSP10TA31 PO; +FAMO40TA7 PO; +GABA300T4 PO; +LOS25T PO; +OXYC-998 PO; +POTA-180 PO
--- NOTE | 2024-07-31 14:52 | ED.PDOC ---
HPI Comments 88 y/o F, with PMHx of HTN, HLD, DM, HLD, asthma, and hypothyroidism presents to the ED for CC of chest pain. EMS reports, patient is coming from [facility] where she c/o substernal chest pain with cough x3days. Patient relays, cough to be productive with white phlegm. Patient denies fever, shortness of breath, chills, or body-aches. No other symptoms or modifying factors present at this time. Time Seen by MD: 14:45 Primary Care Provider: UNKNOWN Reviewed Notes: Nurses Notes, Cosmetic Counselor Notes, Medications, Allergies Allergies: Coded Allergies: Iodine (Verified Allergy, Severe, 07/01/24) NSAIDs (Verified Allergy, Severe, 07/01/24) Promethazine (Verified Allergy, Severe, 07/01/24) Tromethamine (Verified Allergy, Severe, 12/17/11) Fentanyl (Verified Allergy, Unknown, 04/14/24) Latex (Verified Allergy, Unknown, 04/16/24) Uncoded Allergies: CONTRAST (Allergy, Severe, 04/14/24) Home Meds Active Scripts Gabapentin (Once-Daily) (Gabapentin) 300 Mg Tab, 300 MG PO Q6HP PRN, #90 TAB Prov:BREANA ORDOÑEZ MD 07/08/24 Reported Medications Losartan Potassium (Losartan Potassium) 25 Mg Tab, 25 MG PO DAILY for 30 Days, MG 04/19/24 Terazosin Hcl (Terazosin Hcl) 5 Mg Cap, 5 MG PO BID for 30 Days, MG 07/09/16 Isosorbide Mononitrate (Isosorbide Mononitrate ER) 60 Mg Tab, 60 MG PO DAILY, TAB 07/09/16 Furosemide (Furosemide) 40 Mg Tab, 1 TAB PO DAILY, #30 TAB 5 Refills 07/09/16 Clopidogrel Bisulfate (CLOPIDOGREL) 75 Mg Tab, 1 TAB PO DAILY, #90 TAB 1 Refill 07/09/16 Clonidine Hydrochloride (Clonidine Hcl) 0.3 Mg Tab, 0.3 MG PO TID, TAB 07/09/16 Levothyroxine Sodium (SYNTHROID TABLET) 100 Mcg Tb, 112 MCG PO DAILY 07/09/16 Hydralazine Hcl (Hydralazine Hcl) 100 Mg Tab, 1 TAB PO TID, #90 TAB 5 Refills 07/09/16 Atorvastatin Calcium (Lipitor) 20 Mg Tab, 1 TAB PO DAILY, #90 TAB 1 Refill 07/09/16 Metoprolol Tartrate (Metoprolol Tartrate) 50 Mg Tab, 75 MG PO BID for 30 Days, MG 07/09/16 Nitroglycerin (Nitroglycerin) 0.4 Mg Sl 12/17/11 Oxybutynin Chloride (Ditropan Xl) 10 Mg Tab 12/17/11 Dicyclomine Hcl (Dicyclomine Hcl) 20 Mg Tab, 20 MG PRN 12/17/11 Methyldopa (Methyldopa) 250 Mg Tab, 250 MG BID 12/17/11 Etodolac (Etodolac) 200 Mg Cap, 200 MG TID 12/17/11 Atorvastatin Calcium (ATORVASTATIN CALCIUM) 20 Mg Tab, 20 DAILY 12/17/11 Atenolol (Atenolol) 50 Mg Tab, 50 MG DAILY 12/17/11 Furosemide (Lasix) 40 Mg Tab, 40 MG DAILY 12/17/11 Clopidogrel Bisulfate (CLOPIDOGREL) 75 Mg Tab, 75 MG DAILY 12/17/11 Levothyroxine Sodium (Levothyroxine Sodium) 100 Mcg Tab, 100 MCG DAILY 12/17/11 Ciprofloxacin Hcl (Cipro) 500 Mg Tab, 500 MG BID 12/17/11 Chlorthalidone (Chlorthalidone) 25 Mg Tab, 25 MG DAILY 12/17/11 Terazosin Hcl (Terazosin Hcl) 5 Mg Cap, 5 MG BID 12/17/11 Clonidine Hydrochloride (Clonidine Hcl) 0.2 Mg Tab, 0.2 MG TID 12/17/11 Lisinopril (Lisinopril) 40 Mg Tab, 40 MG BID 12/17/11 Omeprazole ([facility] Omeprazole) 20 Mg Tab, 20 MG ACHS 12/17/11 Information Source: Patient, Emergency Med Personnel Mode of Arrival: EMS Severity: Moderate Timing: Days Duration: Since onset Prehospital treatment: None Location: Chest (R), Substernal Onset: At Rest Cardiac Risk Factors: Hyperlipidemia, HTN, Diabetes History of: None Modifying Factors: Nothing Associated Signs and Symptoms: None Past Medical History PAST MEDICAL HISTORY: Anxiety, Asthma, CAD, CHF, CKF, DM, GERD, Gout, High Lipids, HTN Surgical History: Cholecystectomy, Hysterectomy, PTCA CLINICAL RESEARCH NURSE COORDINATOR History: No Pertinent CLINICAL RESEARCH NURSE COORDINATOR History Family History Family History: Reviewed,noncontributory to illness, Unobtainable Social History Smoker: Non-Smoker Alcohol: Denies ETOH Use Drugs: Denies Drug Use Lives In: Home Constitutional: denies: chills, diaphoresis, fatigue, fever, malaise, sweats, weakness, others EENTM: denies: blurred vision, double vision, ear bleeding, ear discharge, ear drainage, ear pain, ear ringing, eye pain, eye redness, hearing loss, mouth pain, mouth swelling, nasal discharge, nose bleeding, nose congestion, nose pain, photophobia, tearing, throat pain, throat swelling, voice changes, others Respiratory: reports: cough; denies: hemoptysis, orthopnea, SOB at rest, shortness of breath, SOB with excertion, stridor, wheezing, others Cardiovascular: reports: chest pain; denies: dizzy spells, diaphoresis, Dyspnea on exertion, edema, irregular heart beat, left arm pain, lightheadedness, p alpitations, PND, syncope, others Gastrointestinal: denies: abdomen distended, abdominal pain, blood streaked bowels, constipated, diarrhea, dysphagia, difficulty swallowing, hematemesis, melena, nausea, poor appetite, poor fluid intake, rectal bleeding, rectal pain, vomiting, others Genitourinary: denies: abnormal vagina bleeding, burning, dyspareunia, dysuria, flank pain, frequency, hematuria, incontinence, pain, , vagina discharge, urgency, others Neurological: denies: dizziness, fainting, headache, left sided numbness, left sided weakness, numbness, paresthesia, pre-existing deficit, right sided numbness, right sided weakness, seizure, speech problems, tingling, tremors, weakness, others Musculoskeletal: denies: back pain, gout, joint pain, joint swelling, muscle pain, muscle stiffness, neck pain, others Integumetry: denies: bruises, change in color, change in hair/nails, dryness, laceration, lesions, lumps, rash, wounds, others Allergic/Immunocompromised: denies: Difficulty Healing, Frequent Infections, Hives, Itching, others Hematologic/Lymphatic: denies: anemia, blood clots, easy bleeding, easy bruising, swollen glands, others Endocrine: denies: excessive hunger, excessive sweating, excessive thirst, excessive urination, flushing, intolerance to cold, intolerance to heat, unexplained weight gain, unexplained weight loss, others Psychiatric: denies: anxiety, bipolar disorder, depression, hopeless, panic disorder, schizophrenia, sleepless, suicidal, others All Other Systems: Reviewed and Negative Physical Exam General Appearance: Moderate Distress, Obese HEENT: Normal ENT Inspection, Pharynx Normal, TMs Normal Neck: Full Range of Motion, Non-Tender, Normal, Normal Inspection Respiratory: Chest Non-Tender, Lungs Clear, No Accessory Muscle Use, No Respiratory Distress, Normal Breath Sounds Cardiovascular: No Edema, No JVD, No Murmur, No Gallop, Normal Peripheral Pulses, Regular Rate/Rhythm Breast Exam: Deferred Gastrointestinal: No Organomegaly, Non Tender, No Pulsatile Mass, Normal Bowel Sounds, Soft Genitalia: Deferred Pelvic: Deferred Rectal: Deferred Extremities: No calf tenderness, Normal capillary refill, No pedal edema Musculoskeletal : Apperance: Normal Neurologic: Alert, chaplain II-XII nml as Tested, Motor Weakness, Normal Affect, Normal Mood, No Sensory Deficits Cerebellar Function: Normal Reflexes: Normal Skin: Dry, Normal Color, Warm Lymphatic: No Adenopathy EKG EKG : Pulse Rate (adult): 88 [place]: Normal Cardiac Rhythm: NSR Block: None Hypertrophy: None ST: Normal Was a procedure done? Was a procedure done?: No CP Differential Dx Differential Diagnosis: [place], [place] Differential Diagnosis: Angina, Chest Wall Pain, Costochondritis, Pneumonia, Other (URI) X-Ray, Labs, Meds, VS Vital Signs Date Time Temp Pulse Resp B/P (MAP) Pulse Ox O2 Delivery O2 Flow Rate FiO2 07/31/24 17:31 97.8 82 18 111/55 (73) 95 97.8 07/31/24 17:31 82 18 95 Room Air* 0 21 07/31/24 15:16 16 98 Nasal Cannula* 2 28 07/31/24 15:16 98.0 87 16 136/76 (96) 98 98.0 07/31/24 14:52 88 07/31/24 14:40 88 Lab Test 07/31/24 16:40 07/31/24 15:04 Range/Units White Blood Count 7.5 4.4-10.8 10^3/uL Red Blood Count 3.22 L 4.0-5.20 10^6/uL Hemoglobin 9.9 L 12.2-16.2 g/dL Hematocrit 29.5 L 36.0-46.0 % Mean Corpuscular Volume 91.7 80.0-100.0 fL Mean Corpuscular Hemoglobin 30.9 28.0-32.0 pg Mean Corpuscular Hemoglobin Concent 33.7 32.0-36.0 g/dL Red Cell Distribution Width 17.7 H 11.8-14.3 % Platelet Count 184 140-450 10^3/uL Mean Platelet Volume 8.0 6.9-10.8 fL Neutrophils (%) (Auto) 33.5 L 37.0-80.0 % Lymphocytes (%) (Auto) 50.9 H 10.0-50.0 % Monocytes (%) (Auto) 10.6 0.0-12.0 % Eosinophils (%) (Auto) 4.3 0.0-7.0 % Basophils (%) (Auto) 0.7 0.0-2.0 % Neutrophils # (Auto) 2.5 1.6-8.6 10 ^3/uL Lymphocytes # (Auto) 3.8 0.4-5.4 10 ^3/uL Monocytes # (Auto) 0.8 0-1.3 10 ^3/uL Eosinophils # (Auto) 0.3 0-0.8 10 ^3/uL Basophils # (Auto) 0.1 0-0.2 10 ^3/uL Nucleated Red Blood Cells 0.2 % D-Dimer, Quantitative 2.11 H 0.0-0.49 mg/L FEU Troponin I High Sensitivity 3 L 3 L </=34 ng/L B-Type Natriuretic Peptide 37.19 0-100 pg/mL Sodium Level 138 136-145 mmol/L Potassium Level 4.1 3.5-5.1 mmol/L Chloride Level 102 98-107 mmol/L Carbon Dioxide Level 25 20-31 mmol/L Anion Gap 11 5-15 Blood Urea Nitrogen 12 9-23 mg/dL Creatinine 1.30 H 0.550-1.02 mg/dL Glomerular Filtration Rate Calc 40 >90 mL/min BUN/Creatinine Ratio 9.2 L 10.0-20.0 Serum Glucose 140 H 74-106 mg/dL Calcium Level 9.8 8.7-10.4 mg/dL Current Medications Medications (Trade) Dose Ordered Sig/Kandace Route Start Time Stop Time Status Last Admin Aspirin 162 mg ONCE ONCE PO 07/31/24 14:45 07/31/24 14:46 DC 07/31/24 15:50 CXR: IMPRESSION: 1. No acute cardiopulmonary disease. 2. Comparison with 07/08/2024 the multi focal airspace disease has resolved. The patient was given aspirin 162 mg by mouth The patient's CBC shows anemia with a hemoglobin of 9.9 and hematocrit of 29.5 The D-dimer is elevated at 2.11 The chemistry panel is within normal limits except for creatinine of 1.3 There was a concern about the elevated D-dimer so we did order a V/Q scan. We can not get a CAT scan of the chest because the patient is allergic to iodine We did contact [facility] and because of the persistent chest pain as well as the elevated D-dimer, the patient is unstable for transfer The authorization #[id number] At this time, the patient is being admitted Images Reviewed?: Images reviewed and evaluated by me Time of 1ST Reevaluation: 15:15 Reevaluation 1ST: Unchanged Patient Education/Counseling: Diagnosis, Treatment, Prognosis Family Education/Counseling: No Family Present Departure 1 Departure Time of Disposition: 18:18 Impression: Primary Impression: Acute chest pain Additional Impression: Elevated d-dimer Disposition: ADMITTED INPATIENT Admit to: Tele Condition: Fair Critical Care Note Critical Care Time?: Yes (55 min-critical care time only) Stability Stability form required: Yes Unstable for transfer: Telemetry monitoring (Telemetry monitoring required), ED Physician Assesment (Clinical assesment) Heart Score Heart Score: Heart Score Response (Comments) Value History Moderate Suspicious 1 EKG Normal 0 Age >65 2 Risk Factors 1 or 2 risk factors 1 Troponin N/A 0 Total 4 I personally scribed for ELSA MARTINEZ MD ([email or web address]) on 07/31/24 at 14:52. Electronically submitted by Calista Jackson ([email or web address]). I personally scribed for ELSA MARTINEZ MD ([email or web address]) on 07/31/24 at 15:48. Electronically submitted by Calista Jackson ([email or web address]). ELSA MARTINEZ MD Jul 31, 2024 14:52
--- NOTE | 2024-07-31 15:24 | DVH ---
CHEST RADIOGRAPH Indication: cp Technique: Single frontal view of the chest was obtained Comparison: XY CHEST PORTABLE on DOS: 07/08/24, XY CHEST XRAY 1 VIEW on DOS: 04/14/24, XY CHEST PORTABL E on DOS: 03/11/24 FINDINGS: Lines and Tubes: None Lungs: No focal consolidation. Pleura: No effusion. No pneumothorax. Cardiomediastinal contours: Unremarkable Bones: No acute osseous abnormality. IMPRESSION: 1. No acute cardiopulmonary disease. 2. Comparison with 07/08/2024 the multi focal airspace disease has resolved.
[2024-07-31 15:47] LABS: Chloride 102 mmol/L (98-107); Potassium 4.1 mmol/L (3.5-5.1); Sodium 138 mmol/L (136-145)
[2024-07-31 15:48] LABS: Anion Gap 11 (5-15); Calcium 9.8 mg/dL (8.7-10.4); Carbon Dioxide 25 mmol/L (20-31)
[2024-07-31] MEDS: ASPirin 81 mg TAB PO ONE (15:50)
[2024-07-31 15:53] LABS: BUN/Creatinine Ratio 9.2 (10.0-20.0); Blood Urea Nitrogen 12 mg/dL (9-23); Glucose 140 mg/dL (74-106)
[2024-07-31 17:02] LABS: Basophils # (auto) 0.1 10 ^3/uL (0-0.2); Basophils % (auto) 0.7 % (0.0-2.0); Eosinophils # (auto) 0.3 10 ^3/uL (0-0.8); Eosinophils % (auto) 4.3 % (0.0-7.0); Hematocrit 29.5 % (36.0-46.0); Hemoglobin 9.9 g/dL (12.2-16.2); Lymphocytes # (auto) 3.8 10 ^3/uL (0.4-5.4); Lymphocytes % (auto) 50.9 % (10.0-50.0); Mean Corpuscular Hemoglobin 30.9 pg (28.0-32.0); Mean Corpuscular Hgb Conc. 33.7 g/dL (32.0-36.0); Mean Corpuscular Volume 91.7 fL (80.0-100.0); Monocytes # (auto) 0.8 10 ^3/uL (0-1.3); Monocytes % (auto) 10.6 % (0.0-12.0); Neutrophils # (auto) 2.5 10 ^3/uL (1.6-8.6); Neutrophils % (auto) 33.5 % (37.0-80.0); Nucleated Red Blood Cells % 0.2 %; Platelet Count (auto) 184 10^3/uL (140-450); Red Blood Cells 3.22 10^6/uL (4.0-5.20); Red Cell Distribution Width 17.7 % (11.8-14.3); White Blood Cell 7.5 10^3/uL (4.4-10.8)
[2024-07-31 17:31] VITALS: PULSE 82; RESP 18; O2SAT 95
[2024-07-31 18:48] LABS: Urine Bacteria None Seen /hpf (None Seen)
[2024-07-31 19:00] LABS: Urine Blood Negative /uL (Negative); Urine Clarity Clear (Clear); Urine Color Yellow (Yellow); Urine Hyaline Cast MOD /lpf (0 - 2); Urine Mucus FEW (None Seen); Urine Protein, UAD TRACE (Negative); Urine Specific Gravity 1.017 (1.001-1.035); Urine Squamous Epithelial Cell FEW /hpf (<5); Urine Urobilinogen Normal (Negative); Urine WBC 7 /HPF (0-5); Urine pH 5.5 (5.0-9.0)
[2024-07-31 22:14] VITALS: O2SAT 96
[2024-07-31 22:14] LABS: Triglycerides 119 mg/dL (< 150)
[2024-07-31 22:15] LABS: LDL Cholesterol 44 mg/dL (< 100)
[2024-07-31 22:16] LABS: Cholesterol 106 mg/dL (< 200)
[2024-07-31] MEDS: ALBUTEROL SULF 2.5 MG/0.5ML(0.5%) NEB SOLN NEB ONE (22:16)
[2024-07-31] MEDS: IPRATROPIUM BROM 0.5 MG/2.5ML INH SOL NEB ONE (22:16)
[2024-07-31 22:19] LABS: Opiate Scree,Urine Neg (NEGATIVE)
[2024-07-31] MEDS: POLYETHYLENE GLYCOL 17 GM PWDR PO ONE (22:28)
[2024-07-31] MEDS: cefTRIAXone 1GM/50ML D5W 50 ML IV SCH (22:29)
[2024-07-31 22:37] LABS: HDL Cholesterol 36 mg/dL (40-59)
[2024-07-31 22:37] LABS: Amphetamine Screen, Urine Neg (NEGATIVE); Barbiturate Scree,Urine Neg (NEGATIVE); Benzodiazephine Screen, Urine Neg (NEGATIVE); Cannabinoid Screen, Urine Neg (NEGATIVE); Cocaine Screen, Urine Neg (NEGATIVE); Phencyclidine Screen, Urine Neg (NEGATIVE)
[2024-08-01] VITALS (14 sets, daily range): BP systolic 120–177; BP diastolic 64–98; PULSE 70–101; RESP 16–18; TEMP 97.8–98.3; O2SAT 92–100
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
[2024-08-01] MEDS ORDERED: DEXTROSE (50%) 50ML SYRG IV PRN (00:15)
[2024-08-01] MEDS: predniSONE 20 MG TAB PO SCH (00:53)
[2024-08-01] MEDS: FUROSEMIDE 40 MG/4 ML VIAL IV SCH (00:54)
[2024-08-01 01:30] LABS: COVID19 ANTIGEN SOFIA FIA NEGATIVE (NEGATIVE); Rapid Influenza A Negative (Negative); Rapid Influenza B Negative (Negative)
--- NOTE | 2024-08-01 02:02 | DVH ---
BILATERAL LOWER EXTREMITY VENOUS DOPPLER ULTRASOUND CLINICAL HISTORY: r/o dvt TECHNIQUE: Grayscale ultrasound with compression, color Doppler flow imaging with pulsed duplex sonog karthik of the bilateral lower extremity deep venous system from the common femoral veins through the p opliteal veins is performed. COMPARISON: US BILAT LOWER DVT on DOS: 07/08/24 FINDINGS: Right common femoral vein: Negative. Right greater saphenous vein: Negative. Right deep femoral vein: Negative. Right femoral vein: Negative. Right popliteal vein: Negative. Left common femoral vein: Negative. Left greater saphenous vein: Negative. Left deep femoral vein: Negative. Left femoral vein: Negative. Left popliteal vein: Negative. Other: Visualized bilateral popliteal trifurcation and posterior tibial veins demonstrate color flow. IMPRESSION: No sonographic evidence of deep venous thrombosis in either lower extremity at this time.
[2024-08-01 06:23] LABS: Basophils # (auto) 0 10 ^3/uL (0-0.2); Basophils % (auto) 0.4 % (0.0-2.0); Eosinophils # (auto) 0.1 10 ^3/uL (0-0.8); Eosinophils % (auto) 0.8 % (0.0-7.0); Hematocrit 32.8 % (36.0-46.0); Hemoglobin 11.2 g/dL (12.2-16.2); Lymphocytes # (auto) 2.3 10 ^3/uL (0.4-5.4); Lymphocytes % (auto) 36.7 % (10.0-50.0); Mean Corpuscular Hemoglobin 31.4 pg (28.0-32.0); Mean Corpuscular Hgb Conc. 34.2 g/dL (32.0-36.0); Mean Corpuscular Volume 91.7 fL (80.0-100.0); Monocytes # (auto) 0.2 10 ^3/uL (0-1.3); Monocytes % (auto) 3.6 % (0.0-12.0); Neutrophils # (auto) 3.6 10 ^3/uL (1.6-8.6); Neutrophils % (auto) 58.5 % (37.0-80.0); Platelet Count (auto) 205 10^3/uL (140-450); Red Blood Cells 3.58 10^6/uL (4.0-5.20); Red Cell Distribution Width 17.1 % (11.8-14.3); White Blood Cell 6.2 10^3/uL (4.4-10.8)
[2024-08-01] MEDS: LEVOTHYROXINE SODIUM 100 MCG TAB PO SCH (06:30)
[2024-08-01 06:44] LABS: Alanine Aminotransferase 23 U/L (7-40); Albumin 4.5 g/dL (3.2-4.8); Anion Gap 11 (5-15); Aspartate Aminotransferase 24 U/L (<34); BUN/Creatinine Ratio 10.9 (10.0-20.0); Blood Urea Nitrogen 15 mg/dL (9-23); Calcium 10.4 mg/dL (8.7-10.4); Carbon Dioxide 27 mmol/L (20-31); Chloride 102 mmol/L (98-107); Potassium 3.7 mmol/L (3.5-5.1); Sodium 140 mmol/L (136-145)
[2024-08-01] MEDS: ALBUTEROL SULF 2.5 MG/0.5ML(0.5%) NEB SOLN NEB SCH (06:46)
[2024-08-01] MEDS: IPRATROPIUM BROM 0.5 MG/2.5ML INH SOL NEB SCH (06:46)
[2024-08-01 06:48] LABS: Alkaline Phosphatase 118 U/L (46-116); Bilirubin, Total 0.3 mg/dL (0.2-1.0); Glucose 157 mg/dL (74-106); Total Protein 8.3 g/dL (5.7-8.2)
[2024-08-01] MEDS: ACCU-CHEK COMFORT CURVE STRIP VI SCH (06:48)
[2024-08-01] MEDS: InsuLIN REG 1unit/0.01ml Soln (100units/ml) SC SCH (07:01)
[2024-08-01] MEDS: HYDROcodone-ACET 5/325MG TAB PO PRN (07:50)
[2024-08-01] MEDS: CHLORTHALIDONE 25 MG TAB PO SCH (08:33)
[2024-08-01] MEDS: PANTOPRAZOLE 40 MG TAB PO SCH (09:03)
--- NOTE | 2024-08-01 10:16 | ECG ---
[facility] Test Date: 2024-07-31 Test Time: 15:41:55 Pat Name: CATY WILSON Department: ED Room: 0249 Gender: F Building Components Designer: JADA : 1935 Requested By: ELSA MARTINEZ Order Number: [id number] Reading MD: Wyatt Chamorro Measurements Intervals [place]man Rate: 78 P: 0 NE: 0 QRS: -9 QRSD: 97 T: 28 QT: 404 QTc: 461 Interpretive Statements Atrial fibrillation Low voltage, precordial leads Baseline wander in lead(s) V2 Electronically Signed On 08-02-2024 16:40:53 PDT by Wyatt Chamorro Please click the below link to view image of tracing.
[2024-08-01] MEDS: LISINOPRIL 20 MG TAB PO SCH (10:42)
[2024-08-01] MEDS: ENOXAPARIN SOD 40 MG/0.4 ML SYRINGE SC SCH (10:42)
[2024-08-01] MEDS ORDERED: METOCLOPRAMIDE HCL 5MG/ml INJ 2ml VIAL IV ONE (16:15)
[2024-08-01] MEDS: LACTULOSE 20Gm/30ML SOLN PO ONE (16:29)
--- NOTE | 2024-08-01 17:36 | DVHPN2 ---
Subjective Patient continues to report having constipation Reviewed: Care Plan, H&P, Medications Changes from previous H/P or p: No Changes General: Per HPI Eyes: No Pain, No Vision change, No Conjunctivae inflammation, No Eyelid inflammation, No Other, No Redness ENT: No Ear pain, No Ear discharge, No Nose pain, No Nose discharge, No Nose congestion, No Mouth pain, No Mouth swelling, No Throat pain, No Throat swelling, No Other Cardiovascular: No Chest Pain, No Palpitations, No Orthopnea, No Paroxysmal Noc. Dyspnea, No Edema, No Lt Headedness, No Other Respiratory: Cough; No Dry; Shortness of breath; No SOB with excertion, No Wheezing, No Hemoptysis, No Pleuritic Pain; Sputum (Yellowish in color); No Other Gastrointestinal: No Nausea, No Vomiting, No Abdominal Pain, No Diarrhea, No Constipation, No Melena, No Hematochezia, No Other Genitourinary: Dysuria; No Frequency, No Incontinence, No Hematuria, No Retention, No Other Musculoskeletal: No other, No neck pain, No shoulder pain, No arm pain, No back pain, No hand pain, No leg pain, No foot pain Skin: No Rash, No Lesions, No Jaundice, No Bruising, No Other Objective Vitals Vital Signs Date Time Temp Pulse Resp B/P (MAP) Pulse Ox O2 Delivery O2 Flow Rate FiO2 08/01/24 16:39 97.9 87 16 167/89 (115) 95 97.9 08/01/24 12:09 Room Air 0.0 08/01/24 12:09 21 Intake/Output Intake and Output 08/01/24 07:00 Intake Total 50 ml Output Total 400 ml Balance -350 ml IV Total 50 ml Output Urine Total 400 ml General Appearance: Alert, Oriented X3, Cooperative, mild distress HEENT: Atraumatic, PERRLA Lungs: Clear to auscultation, Normal air movement Cardiovascular: Normal S1, Normal S2 Abdomen: Normal bowel sounds, Soft, No tenderness Musculoskeletal: Normal sensory function, Normal motor function Skin: Dry, Intact Psych/Mental Status: Mental status NL Medications Current Medications Medications Dose Ordered Sig/Kandace Route Start Time Stop Time Status Last Admin Dose Admin Acetaminophen 650 mg Q6HP PRN PO 07/31/24 22:00 Acetaminophen/ Hydrocodone Bitart 1 tab Q4HP PRN PO 07/31/24 22:00 08/01/24 07:50 1 TAB Enoxaparin Sodium 40 mg DAILY SC 08/01/24 10:00 08/01/24 10:42 40 MG Ceftriaxone Sodium 50 ml @ 100 mls/hr DAILY IV 07/31/24 22:00 08/01/24 10:43 100 MLS/HR Prednisone 40 mg DAILY PO 07/31/24 23:45 08/01/24 10:43 40 MG Albuterol 2.5 mg Q6HWA NEB 08/01/24 06:00 08/01/24 12:09 2.5 MG Ipratropium [place] 0.5 mg Q6HWA NEB 08/01/24 06:00 08/01/24 12:08 0.5 MG Atorvastatin Calcium 20 mg HS PO 08/01/24 22:00 Lisinopril 40 mg DAILY PO 08/01/24 10:00 08/01/24 10:42 40 MG Chlorthalidone 25 mg DAILY@BREAKFAST PO 08/01/24 08:00 08/01/24 08:33 25 MG Furosemide 40 mg DAILY IV 08/01/24 00:00 08/01/24 10:43 40 MG Levothyroxine Sodium 100 mcg QAM@0600 PO 08/01/24 06:00 08/01/24 06:30 100 MCG Diagnostic Test (Pha) 1 strip ACHS 08/01/24 07:00 08/01/24 17:09 1 STRIP Insulin Human Regular ACHS SC 08/01/24 07:00 08/01/24 17:11 3 UNITS Dextrose 50 ml UD PRN IV 08/01/24 00:15 Pantoprazole Sodium 40 mg DAILY@0600 PO 08/01/24 09:00 08/01/24 09:03 40 MG Docusate Sodium 100 mg BID PO 08/01/24 22:00 Laboratory Results Laboratory Tests 08/01/24 06:04 Chemistry Test 08/01/24 06:04 Albumin 4.5 g/dL (3.2-4.8) Calcium Level 10.4 mg/dL (8.7-10.4) Total Protein 8.3 g/dL (5.7-8.2) H LFT Test 08/01/24 06:04 Alanine Aminotransferase (ALT) 23 U/L (7-40) Alkaline Phosphatase 118 U/L (46-116) H Aspartate Amino Transferase (AST) 24 U/L (<34) Total Bilirubin 0.3 mg/dL (0.2-1.0) HgA1c, TSH Test 07/31/24 21:01 Thyroid Stimulating Hormone (TSH) 7.42 uIU/mL (0.55-4.78) H Urinalysis Test 07/31/24 18:34 Urine Color Yellow (Yellow) Urine Clarity Clear (Clear) Urine pH 5.5 (5.0-9.0) Urine Specific [place] 1.017 (1.001-1.035) Urine Protein Trace (Negative) H Urine Ketones Negative (Negative) Urine Blood Negative /uL (Negative) Urine Nitrite Negative (Negative) Urine Bilirubin Negative (Negative) Urine Urobilinogen Normal mg/dL (Negative) Urine Leukocyte Esterase Trace /uL (Negative) Urine RBC 1 /hpf (0 - 4) Urine Microscopic WBC 7 /HPF (0-5) H Urine Squamous Epithelial Cells Few /hpf (<5) Urine Bacteria None seen /hpf (None Seen) Urine Hyaline Casts Mod /lpf (0 - 2) Urine Mucus Few (None Seen) Urine Glucose Normal mg/dL (Normal) Microbiology Microbiology Date/Time Source Procedure Growth Status 07/31/24 18:34 Voided Urine Urine Culture - Preliminary Resulted Labs and/or images reviewed: Labs reviewed by me, Image(s) reviewed by me Assessment/Plan Assessment/Plan Impression: -acute hypoxic respiratory failure -rule out community-acquired pneumonia, probable viral etiology -asthma exacerbation -normocytic anemia -acute on chronic diastolic heart failure -constipation -hypothyroidism -diabetes mellitus -GERD Plan: -stop lisinopril given probable etiology for cough -bowel regimen -regular insulin sliding scale -continue antihypertensives -re-evaluate for discharge in a.m. Total time spent with patient discussing and formulating plan of care: 35 minutes. This medical document was created using an electronic medical record system with [employer] dictation system. Although this document has been carefully reviewed, there may still be some phonetic and typographical errors. These areas are purely typographical due to imperfections of the software programs, and do not reflect any compromise in the patient's medical care. Plan discussed with: Patient, Other (RN) My Orders Orders - BOWEN ODOM PRICING MANAGER Procedure Category Date Status Time Metoclopramide PHA 08/01/24 Pending Injection (Reglan 16:15 Docusate Sodium PHA 08/01/24 In Process Capsule (Colace 22:00 Date of Service: Aug 01, 2024 Billing Provider: BOWEN ODOM NP Common Visit Codes: [id number] INP/OBS CARE(HIGH) BOWEN ODOM NP Aug 01, 2024 17:36
[2024-08-01] MEDS: amLODIPine BESYLATE 5 MG TAB PO ONE (19:14)
[2024-08-01] MEDS: DOCUSATE SOD 100 MG CAP PO SCH (20:06)
[2024-08-01] MEDS: ACETAMINOPHEN 325 MG TAB PO PRN (20:12)
[2024-08-01] MEDS: ATORVASTATIN 20 MG TAB PO SCH (21:34)
[2024-08-02] VITALS (13 sets, daily range): BP systolic 144–173; BP diastolic 72–106; PULSE 83–100; RESP 16–22; TEMP 97.6–98.4; O2SAT 91–100
[2024-08-02] MEDS: amLODIPine BESYLATE 5 MG TAB PO SCH (10:13)
--- NOTE | 2024-08-02 10:55 | DVHPN2 ---
Subjective Patient continues to report having constipation Reviewed: Care Plan, H&P, Medications Changes from previous H/P or p: No Changes General: Per HPI Eyes: No Pain, No Vision change, No Conjunctivae inflammation, No Eyelid inflammation, No Other, No Redness ENT: No Ear pain, No Ear discharge, No Nose pain, No Nose discharge, No Nose congestion, No Mouth pain, No Mouth swelling, No Throat pain, No Throat swelling, No Other Cardiovascular: No Chest Pain, No Palpitations, No Orthopnea, No Paroxysmal Noc. Dyspnea, No Edema, No Lt Headedness, No Other Respiratory: Cough; No Dry; Shortness of breath; No SOB with excertion, No Wheezing, No Hemoptysis, No Pleuritic Pain; Sputum (Yellowish in color); No Other Gastrointestinal: No Nausea, No Vomiting, No Abdominal Pain, No Diarrhea, No Constipation, No Melena, No Hematochezia, No Other Genitourinary: Dysuria; No Frequency, No Incontinence, No Hematuria, No Retention, No Other Musculoskeletal: No other, No neck pain, No shoulder pain, No arm pain, No back pain, No hand pain, No leg pain, No foot pain Skin: No Rash, No Lesions, No Jaundice, No Bruising, No Other Objective Vitals Vital Signs Date Time Temp Pulse Resp B/P (MAP) Pulse Ox O2 Delivery O2 Flow Rate FiO2 08/02/24 10:13 154/82 08/02/24 08:59 98.3 100 17 91 98.3 08/02/24 06:54 Room Air* 0 21 Intake/Output Intake and Output 08/02/24 07:00 Intake Total 1075 ml Output Total 3500 ml Balance -2425 ml Intake Oral 1075 ml Output Urine Total 3500 ml # Voids 4 # Bowel Movements 2 General Appearance: Alert, Oriented X3, Cooperative, mild distress HEENT: Atraumatic, PERRLA Lungs: Clear to auscultation, Normal air movement Cardiovascular: Normal S1, Normal S2 Abdomen: Normal bowel sounds, Soft, No tenderness Musculoskeletal: Normal sensory function, Normal motor function Skin: Dry, Intact Psych/Mental Status: Mental status NL Medications Current Medications Medications Dose Ordered Sig/Kandace Route Start Time Stop Time Status Last Admin Dose Admin Acetaminophen 650 mg Q6HP PRN PO 07/31/24 22:00 08/02/24 04:06 650 MG Acetaminophen/ Hydrocodone Bitart 1 tab Q4HP PRN PO 07/31/24 22:00 08/02/24 10:14 1 TAB Enoxaparin Sodium 40 mg DAILY SC 08/01/24 10:00 08/02/24 10:11 40 MG Ceftriaxone Sodium 50 ml @ 100 mls/hr DAILY IV 07/31/24 22:00 08/02/24 10:12 100 MLS/HR Prednisone 40 mg DAILY PO 07/31/24 23:45 08/02/24 10:13 40 MG Albuterol 2.5 mg Q6HWA NEB 08/01/24 06:00 08/02/24 06:54 2.5 MG Ipratropium [place] 0.5 mg Q6HWA NEB 08/01/24 06:00 08/02/24 06:54 0.5 MG Atorvastatin Calcium 20 mg HS PO 08/01/24 22:00 08/01/24 21:34 20 MG Chlorthalidone 25 mg DAILY@BREAKFAST PO 08/01/24 08:00 08/02/24 10:12 25 MG Furosemide 40 mg DAILY IV 08/01/24 00:00 08/02/24 10:12 40 MG Levothyroxine Sodium 100 mcg QAM@0600 PO 08/01/24 06:00 08/02/24 05:42 100 MCG Diagnostic Test (Pha) 1 strip ACHS 08/01/24 07:00 08/02/24 06:16 1 STRIP Insulin Human Regular ACHS SC 08/01/24 07:00 08/02/24 06:25 2 UNITS Dextrose 50 ml UD PRN IV 08/01/24 00:15 Pantoprazole Sodium 40 mg DAILY@0600 PO 08/01/24 09:00 08/02/24 05:42 40 MG Docusate Sodium 100 mg BID PO 08/01/24 22:00 08/01/24 20:06 100 MG Amlodipine Besylate 10 mg DAILY PO 08/02/24 10:00 08/02/24 10:13 10 MG Laboratory Results Laboratory Tests 08/01/24 06:04 Urinalysis Test 07/31/24 18:34 Urine Color Yellow (Yellow) Urine Clarity Clear (Clear) Urine pH 5.5 (5.0-9.0) Urine Specific [place] 1.017 (1.001-1.035) Urine Protein Trace (Negative) H Urine Ketones Negative (Negative) Urine Blood Negative /uL (Negative) Urine Nitrite Negative (Negative) Urine Bilirubin Negative (Negative) Urine Urobilinogen Normal mg/dL (Negative) Urine Leukocyte Esterase Trace /uL (Negative) Urine RBC 1 /hpf (0 - 4) Urine Microscopic WBC 7 /HPF (0-5) H Urine Squamous Epithelial Cells Few /hpf (<5) Urine Bacteria None seen /hpf (None Seen) Urine Hyaline Casts Mod /lpf (0 - 2) Urine Mucus Few (None Seen) Urine Glucose Normal mg/dL (Normal) Microbiology Microbiology Date/Time Source Procedure Growth Status 07/31/24 18:34 Voided Urine Urine Culture - Preliminary Resulted Labs and/or images reviewed: Labs reviewed by me, Image(s) reviewed by me Assessment/Plan Assessment/Plan Impression: -acute hypoxic respiratory failure -rule out community-acquired pneumonia, probable viral etiology -asthma exacerbation -normocytic anemia -acute on chronic diastolic heart failure -constipation -hypothyroidism -diabetes mellitus -GERD Plan: Events: Patient has complaints of worsening right hip pain. Positive BMs. Right hip x-ray. If negative findings, transfer back to nursing home facility. -stop lisinopril given probable etiology for cough -bowel regimen -regular insulin sliding scale -continue antihypertensives -re-evaluate for discharge in a.m. Total time spent with patient discussing and formulating plan of care: 35 minutes. This medical document was created using an electronic medical record system with [employer] dictation system. Although this document has been carefully reviewed, there may still be some phonetic and typographical errors. These areas are purely typographical due to imperfections of the software programs, and do not reflect any compromise in the patient's medical care. Plan discussed with: Patient, Other (RN) My Orders Orders - BOWEN ODOM NP Procedure Category Date Status Time Docusate Sodium PHA 08/01/24 In Process Capsule (Colace 22:00 Amlodipine Tablet PHA 08/02/24 In Process (Norvasc Tablet) 10:00 R Hip Complete Xray XY 08/02/24 Verified 10:53 Date of Service: Aug 02, 2024 Billing Provider: BOWEN ODOM NP Common Visit Codes: [id number] INP/OBS CARE(HIGH) BOWEN ODOM NP Aug 02, 2024 10:55
--- NOTE | 2024-08-02 13:57 | DVH ---
CLINICAL INDICATION: right hip pain TECHNIQUE: XY R HIP COMPLETE XRAY Comparison: None FINDINGS/IMPRESSION: : There is no evidence of acute fracture or dislocation. Soft tissues are unremarkable. Severe degenerative changes of bilateral hips
[2024-08-02] MEDS: MELATONIN 5 MG TAB PO ONE (21:42)
[2024-08-03] VITALS (12 sets, daily range): BP systolic 114–196; BP diastolic 60–89; PULSE 70–106; RESP 16–18; TEMP 97.2–98.2; O2SAT 92–100
[2024-08-03] MEDS: GABAPENTIN 100 MG CAP PO ONE (01:39)
[2024-08-03] MEDS: ONDANSETRON ODT 4 MG TAB PO ONE (03:30)
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
--- NOTE | 2024-08-03 12:34 | ECG ---
[facility] Test Date: 2024-07-31 Test Time: 14:40:42 Pat Name: CATY WILSON Department: ED Room: 0249 B Gender: F Turf Keeper: timmy : 1935 Requested By: ELSA MARTINEZ Order Number: [id number] Reading MD: Wyatt Chamorro Measurements Intervals [place] Rate: 88 P: -7 PA: 145 QRS: -3 QRSD: 77 T: 62 QT: 370 QTc: 448 Interpretive Statements Sinus rhythm Atrial premature complex Low voltage, precordial leads Consider anterior infarct Baseline wander in lead(s) I,II,aVR,aVF,V1,V2,V3 Electronically Signed On 08-04-2024 17:28:50 PDT by Wyatt Chamorro Please click the below link to view image of tracing.
[2024-08-03] MEDS: OXYCODONE W/ ACETAMINOPHEN 5/325MG TABLET PO PRN (14:01)
[2024-08-03] MEDS: cloNIDine HCL 0.1 MG TAB PO ONE (14:01)
[2024-08-04] VITALS (14 sets, daily range): BP systolic 114–165; BP diastolic 60–81; PULSE 76–94; RESP 16–20; TEMP 97.1–98.6; O2SAT 92–100
--- NOTE | 2024-08-04 10:18 | DVHPN2 ---
Subjective Patient denies any symptoms Reviewed: Care Plan, H&P, Medications Changes from previous H/P or p: No Changes General: Per HPI Eyes: No Pain, No Vision change, No Conjunctivae inflammation, No Eyelid inflammation, No Other, No Redness ENT: No Ear pain, No Ear discharge, No Nose pain, No Nose discharge, No Nose congestion, No Mouth pain, No Mouth swelling, No Throat pain, No Throat swelling, No Other Cardiovascular: No Chest Pain, No Palpitations, No Orthopnea, No Paroxysmal Noc. Dyspnea, No Edema, No Lt Headedness, No Other Respiratory: Cough; No Dry; Shortness of breath; No SOB with excertion, No Wheezing, No Hemoptysis, No Pleuritic Pain; Sputum (Yellowish in color); No Other Gastrointestinal: No Nausea, No Vomiting, No Abdominal Pain, No Diarrhea, No Constipation, No Melena, No Hematochezia, No Other Genitourinary: Dysuria; No Frequency, No Incontinence, No Hematuria, No Retention, No Other Musculoskeletal: No other, No neck pain, No shoulder pain, No arm pain, No back pain, No hand pain, No leg pain, No foot pain Skin: No Rash, No Lesions, No Jaundice, No Bruising, No Other Objective Vitals Vital Signs Date Time Temp Pulse Resp B/P (MAP) Pulse Ox O2 Delivery O2 Flow Rate FiO2 08/04/24 09:00 97.9 85 16 141/67 (91) 93 97.9 08/04/24 08:00 Room Air* 0 21 Intake/Output Intake and Output 08/04/24 07:00 Intake Total 800 ml Output Total 975 ml Balance -175 ml Intake Oral 800 ml Output Urine Total 975 ml General Appearance: Alert, Oriented X3, Cooperative, mild distress HEENT: Atraumatic, PERRLA Lungs: Clear to auscultation, Normal air movement Cardiovascular: Normal S1, Normal S2 Abdomen: Normal bowel sounds, Soft, No tenderness Musculoskeletal: Normal sensory function, Normal motor function Skin: Dry, Intact Psych/Mental Status: Mental status NL, Mood NL Medications Current Medications Medications Dose Ordered Sig/Kandace Route Start Time Stop Time Status Last Admin Dose Admin Acetaminophen 650 mg Q6HP PRN PO 07/31/24 22:00 08/04/24 05:35 650 MG Enoxaparin Sodium 40 mg DAILY SC 08/01/24 10:00 08/04/24 08:49 40 MG Ceftriaxone Sodium 50 ml @ 100 mls/hr DAILY IV 07/31/24 22:00 08/04/24 08:48 100 MLS/HR Prednisone 40 mg DAILY PO 07/31/24 23:45 08/04/24 08:50 40 MG Albuterol 2.5 mg Q6HWA NEB 08/01/24 06:00 08/04/24 07:04 2.5 MG Ipratropium [place] 0.5 mg Q6HWA NEB 08/01/24 06:00 08/04/24 07:04 0.5 MG Atorvastatin Calcium 20 mg HS PO 08/01/24 22:00 08/03/24 21:40 20 MG Chlorthalidone 25 mg DAILY@BREAKFAST PO 08/01/24 08:00 08/04/24 08:50 25 MG Furosemide 40 mg DAILY IV 08/01/24 00:00 08/04/24 08:51 40 MG Levothyroxine Sodium 100 mcg QAM@0600 PO 08/01/24 06:00 08/04/24 05:35 100 MCG Diagnostic Test (Pha) 1 strip ACHS 08/01/24 07:00 08/04/24 05:47 1 STRIP Insulin Human Regular ACHS SC 08/01/24 07:00 08/03/24 14:00 2 UNITS Dextrose 50 ml UD PRN IV 08/01/24 00:15 Pantoprazole Sodium 40 mg DAILY@0600 PO 08/01/24 09:00 08/04/24 05:36 40 MG Docusate Sodium 100 mg BID PO 08/01/24 22:00 08/04/24 08:49 100 MG Amlodipine Besylate 10 mg DAILY PO 08/02/24 10:00 08/04/24 08:49 10 MG Oxycodone/ Acetaminophen 1 tab Q6HP PRN PO 08/03/24 11:45 08/04/24 02:40 1 TAB Hydralazine HCl 10 mg Q6HP PRN IV 08/03/24 12:45 Laboratory Results Laboratory Tests 08/01/24 06:04 Urinalysis Test 07/31/24 18:34 Urine Color Yellow (Yellow) Urine Clarity Clear (Clear) Urine pH 5.5 (5.0-9.0) Urine Specific [place] 1.017 (1.001-1.035) Urine Protein Trace (Negative) H Urine Ketones Negative (Negative) Urine Blood Negative /uL (Negative) Urine Nitrite Negative (Negative) Urine Bilirubin Negative (Negative) Urine Urobilinogen Normal mg/dL (Negative) Urine Leukocyte Esterase Trace /uL (Negative) Urine RBC 1 /hpf (0 - 4) Urine Microscopic WBC 7 /HPF (0-5) H Urine Squamous Epithelial Cells Few /hpf (<5) Urine Bacteria None seen /hpf (None Seen) Urine Hyaline Casts Mod /lpf (0 - 2) Urine Mucus Few (None Seen) Urine Glucose Normal mg/dL (Normal) Microbiology Microbiology Date/Time Source Procedure Growth Status 07/31/24 18:34 Voided Urine Urine Culture - Final Complete Labs and/or images reviewed: Labs reviewed by me, Image(s) reviewed by me Assessment/Plan Assessment/Plan Impression: -acute hypoxic respiratory failure -rule out community-acquired pneumonia, probable viral etiology -asthma exacerbation -normocytic anemia -acute on chronic diastolic heart failure -constipation -hypothyroidism -diabetes mellitus -GERD Plan: Events: [facility] Apparently, patient did not receive authorization from [place]. Patient will be discharged day back to [facility] -stop lisinopril given probable etiology for cough -bowel regimen -regular insulin sliding scale -continue antihypertensives Total time spent with patient discussing and formulating plan of care: 35 minutes. This medical document was created using an electronic medical record system with [employer] dictation system. Although this document has been carefully reviewed, there may still be some phonetic and typographical errors. These areas are purely typographical due to imperfections of the software programs, and do not reflect any compromise in the patient's medical care. Plan discussed with: Patient, Other (RN) My Orders Orders - BOWEN ODOM NP Procedure Category Date Status Time * Dietary Consult CONS 08/03/24 Transmitted 10:42 *Rn Position Classification Manager REFER 08/03/24 Transmitted Referral 10:49 * Salt Cutter CONS 08/03/24 Transmitted Consult Oxycodone W/ Acet PHA 08/03/24 In Process 5/325mg Tab (Percocet 11:45 Discharge DISCHARGE 08/03/24 Transmitted 11:41 Hydralazine Injection PHA 08/03/24 In Process (Apresoline Inject 12:45 Date of Service: Aug 04, 2024 Billing Provider: BOWEN ODOM NP Common Visit Codes: [id number] INP/OBS CARE(HIGH) BOWEN ODOM NP Aug 04, 2024 10:18
[2024-08-04] MEDS: hydrALAZINE HCL 20 MG/ML VL IV PRN (12:06)
[2024-08-04] MEDS: LORazepam 0.5 MG TAB PO ONE (14:40)
[2024-08-04] MEDS: LACTULOSE 20Gm/30ML SOLN PO ONE (15:04)
[2024-08-05] VITALS (11 sets, daily range): BP systolic 150–154; BP diastolic 73–86; PULSE 75–99; RESP 16–18; TEMP 97.2–97.8; O2SAT 94–100
[2024-08-05] MEDS: FLEET ENEMA(ADULT) 135 ML PR ONE (02:07)
--- NOTE | 2024-08-05 13:54 | DVHPN2 ---
Subjective Patient denies any symptoms Reviewed: Care Plan, H&P, Medications Changes from previous H/P or p: No Changes General: Per HPI Eyes: No Pain, No Vision change, No Conjunctivae inflammation, No Eyelid inflammation, No Other, No Redness ENT: No Ear pain, No Ear discharge, No Nose pain, No Nose discharge, No Nose congestion, No Mouth pain, No Mouth swelling, No Throat pain, No Throat swelling, No Other Cardiovascular: No Chest Pain, No Palpitations, No Orthopnea, No Paroxysmal Noc. Dyspnea, No Edema, No Lt Headedness, No Other Respiratory: Cough; No Dry; Shortness of breath; No SOB with excertion, No Wheezing, No Hemoptysis, No Pleuritic Pain; Sputum (Yellowish in color); No Other Gastrointestinal: No Nausea, No Vomiting, No Abdominal Pain, No Diarrhea, No Constipation, No Melena, No Hematochezia, No Other Genitourinary: Dysuria; No Frequency, No Incontinence, No Hematuria, No Retention, No Other Musculoskeletal: No other, No neck pain, No shoulder pain, No arm pain, No back pain, No hand pain, No leg pain, No foot pain Skin: No Rash, No Lesions, No Jaundice, No Bruising, No Other Objective Vitals Vital Signs Date Time Temp Pulse Resp B/P (MAP) Pulse Ox O2 Delivery O2 Flow Rate FiO2 08/05/24 13:00 97.2 96 17 150/86 (107) 100 97.2 08/05/24 08:00 Room Air* 0 21 Intake/Output Intake and Output 08/05/24 07:00 Intake Total 1588 ml Output Total 2000 ml Balance -412 ml Intake Oral 1588 ml Output Urine Total 2000 ml General Appearance: Alert, Oriented X3, Cooperative, mild distress HEENT: Atraumatic, PERRLA Lungs: Clear to auscultation, Normal air movement Cardiovascular: Normal S1, Normal S2 Abdomen: Normal bowel sounds, Soft, No tenderness Musculoskeletal: Normal sensory function, Normal motor function Skin: Dry, Intact Psych/Mental Status: Mental status NL, Mood NL Medications Current Medications Medications Dose Ordered Sig/Kandace Route Start Time Stop Time Status Last Admin Dose Admin Acetaminophen 650 mg Q6HP PRN PO 07/31/24 22:00 08/04/24 05:35 650 MG Enoxaparin Sodium 40 mg DAILY SC 08/01/24 10:00 08/05/24 09:23 40 MG Ceftriaxone Sodium 50 ml @ 100 mls/hr DAILY IV 07/31/24 22:00 08/05/24 09:22 100 MLS/HR Prednisone 40 mg DAILY PO 07/31/24 23:45 08/05/24 09:22 40 MG Albuterol 2.5 mg Q6HWA NEB 08/01/24 06:00 08/05/24 12:31 2.5 MG Ipratropium [place] 0.5 mg Q6HWA NEB 08/01/24 06:00 08/05/24 12:31 0.5 MG Atorvastatin Calcium 20 mg HS PO 08/01/24 22:00 08/04/24 23:02 20 MG Chlorthalidone 25 mg DAILY@BREAKFAST PO 08/01/24 08:00 08/05/24 09:15 25 MG Furosemide 40 mg DAILY IV 08/01/24 00:00 08/05/24 09:21 40 MG Levothyroxine Sodium 100 mcg QAM@0600 PO 08/01/24 06:00 08/05/24 06:04 100 MCG Diagnostic Test (Pha) 1 strip ACHS 08/01/24 07:00 08/05/24 11:05 1 STRIP Insulin Human Regular ACHS SC 08/01/24 07:00 08/05/24 11:57 2 UNITS Dextrose 50 ml UD PRN IV 08/01/24 00:15 Pantoprazole Sodium 40 mg DAILY@0600 PO 08/01/24 09:00 08/05/24 06:04 40 MG Docusate Sodium 100 mg BID PO 08/01/24 22:00 08/05/24 09:25 100 MG Amlodipine Besylate 10 mg DAILY PO 08/02/24 10:00 08/05/24 09:22 10 MG Oxycodone/ Acetaminophen 1 tab Q6HP PRN PO 08/03/24 11:45 08/04/24 20:28 1 TAB Hydralazine HCl 10 mg Q6HP PRN IV 08/03/24 12:45 08/04/24 12:06 10 MG Laboratory Results Laboratory Tests 08/01/24 06:04 Urinalysis Test 07/31/24 18:34 Urine Color Yellow (Yellow) Urine Clarity Clear (Clear) Urine pH 5.5 (5.0-9.0) Urine Specific [place] 1.017 (1.001-1.035) Urine Protein Trace (Negative) H Urine Ketones Negative (Negative) Urine Blood Negative /uL (Negative) Urine Nitrite Negative (Negative) Urine Bilirubin Negative (Negative) Urine Urobilinogen Normal mg/dL (Negative) Urine Leukocyte Esterase Trace /uL (Negative) Urine RBC 1 /hpf (0 - 4) Urine Microscopic WBC 7 /HPF (0-5) H Urine Squamous Epithelial Cells Few /hpf (<5) Urine Bacteria None seen /hpf (None Seen) Urine Hyaline Casts Mod /lpf (0 - 2) Urine Mucus Few (None Seen) Urine Glucose Normal mg/dL (Normal) Microbiology Microbiology Date/Time Source Procedure Growth Status 07/31/24 18:34 Voided Urine Urine Culture - Final Complete Labs and/or images reviewed: Labs reviewed by me, Image(s) reviewed by me Assessment/Plan Assessment/Plan Impression: -acute hypoxic respiratory failure -rule out community-acquired pneumonia, probable viral etiology -asthma exacerbation -normocytic anemia -acute on chronic diastolic heart failure -constipation -hypothyroidism -diabetes mellitus -GERD Plan: Events: [facility] Apparently, patient did not receive authorization from [place]. [facility] [place] -stop lisinopril given probable etiology for cough -bowel regimen -regular insulin sliding scale -continue antihypertensives Total time spent with patient discussing and formulating plan of care: 35 minutes. This medical document was created using an electronic medical record system with [employer] dictation system. Although this document has been carefully reviewed, there may still be some phonetic and typographical errors. These areas are purely typographical due to imperfections of the software programs, and do not reflect any compromise in the patient's medical care. Plan discussed with: Patient, Other (RN) Date of Service: Aug 05, 2024 Billing Provider: BOWEN ODOM NP Common Visit Codes: [id number] INP/OBS CARE(MOD) BOWEN ODOM NP Aug 05, 2024 13:54
== END 2024-08-05 19:30 | DRG 193 ==
LOC: EDBD 14:40 → ER 14:40 → OVERFLOW 21:51 → EAST 08-01 13:15
PROVIDERS: ADMIT Nurse Practitioner Acute Care; ATTEND Nurse Practitioner Acute Care
DX: J12.9 Viral pneumonia, unspecified (principal); I50.33 Acute on chronic diastolic (congestive) heart failure; J96.01 Acute respiratory failure with hypoxia; N17.9 Acute kidney failure, unspecified; J45.901 Unspecified asthma with (acute) exacerbation; N39.0 Urinary tract infection, site not specified; I13.0 Hypertensive heart and chronic kidney disease with heart failure and stage 1 through stage 4 chronic kidney disease, or unspecified chronic kidney disease; E03.9 Hypothyroidism, unspecified; E11.22 Type 2 diabetes mellitus with diabetic chronic kidney disease; N18.9 Chronic kidney disease, unspecified; D64.9 Anemia, unspecified; K21.9 Gastro-esophageal reflux disease without esophagitis; K59.00 Constipation, unspecified; M16.0 Bilateral primary osteoarthritis of hip; I25.10 Atherosclerotic heart disease of native coronary artery without angina pectoris; M10.9 Gout, unspecified; F41.9 Anxiety disorder, unspecified; E78.5 Hyperlipidemia, unspecified; Z91.041 Radiographic dye allergy status; Z90.710 Acquired absence of both cervix and uterus; Z88.8 Allergy status to other drugs, medicaments and biological substances; Z91.040 Latex allergy status
CPT/HCPCS: 36415; 71045; 73502; 80048; 80053; 80061; 80307; 81001; 82270; 82962; 83036; 83605; 83880; 84439; 84443; 84484; 85025; 85379; 87086; 87426; 87804; 93005; 93970; 94640; 99291; G0378; J1815; Q0162